=== PATIENT | male | born 1955 | race Two or more races ===

== ENCOUNTER 2020-04-04 04:06 | Inpatient (IN) | payer MEDICARE, SELFPAY ==
[2020-04-04] VITALS (9 sets, daily range): BP systolic 116–186; BP diastolic 58–96; PULSE 82–120; RESP 16–30; TEMP 36.5–37.1; O2SAT 92–98; BMI 18.1
--- NOTE | 2020-04-04 04:14 | ECG_ITS ---
Test Reason : DIF BREATHIG Blood Pressure : / mmHG Vent. Rate : 095 BPM Atrial Rate : 095 BPM P-R Int : 164 ms QRS Dur : 090 ms QT Int : 362 ms P-R-T Axes : 084 107 -36 degrees QTc Int : 454 ms Normal sinus rhythm Left atrial enlargement Rightward axis Pulmonary disease pattern T wave abnormality, consider lateral ischemia Abnormal ECG please see previous ekgs ST-T wave changes have are new Clinical Correlation Advised Referred By: Alexandra Jerome Electronically Signed By:AJ HAWTHORNE MD
--- NOTE | 2020-04-04 04:15 | XR_ITS ---
EXAMINATION: CHEST 1 VIEW CLINICAL INFORMATION: Shortness of breath. COMPARISON: 04/01/2016. TECHNIQUE: An AP view of the chest is provided. FINDINGS: The cardiac silhouette is not enlarged. The mediastinal and hilar contours are unremarkable. There are neither pleural effusions nor pneumothoraces. There is bibasilar atelectasis. There is mild interstitial prominence present throughout both lungs. The osseous structures are unremarkable. IMPRESSION: Mild nonspecific interstitial prominence throughout both lungs. Bibasilar atelectasis.
--- NOTE | 2020-04-04 04:27 | ED_ITS ---
HPI - SOB/Dyspnea General Chief Complaint: Dyspnea Stated Complaint: diff breathing Time Seen by Provider: 04/04/20 04:14 History of Present Illness HPI Narrative: This is a 65-year-old male who presents via EMS with complaints of worsening shortness of breath over the past 3 days and is not oxygen dependent and states that he has had subjective fevers with chills as well as a cough with increased phlegm production, chest pain, abdominal discomfort. He states he last used cocaine on Thursday. Related Data Allergies Allergy/AdvReac Type Severity Reaction Status Date / Time No Known Allergies Allergy Unverified 03/01/20 15:40 Review of Systems Review of Systems: Pertinent positives and negatives as stated in HPI 10 point review of systems is otherwise negative. [facility] Past Medical History Source: nursing notes reviewed Medical History Asthma Depression Hypertension Social History Social History Alcohol intake: current Alcohol intake frequency: a few times a week Alcohol type: beer Smoking Status: Current every day smoker Smoked in Last 30 Days: Yes Use of substances other than those prescribed or required for medical reasons: Yes Substance Use Type: Crack/Cocaine, Heroin and Marijuana Substance Use Frequency: Chronic Longstanding Last Used Substance: Days (ago) Any prior treatment program specific to substance use: No Advance Directives: No Advance Directives Information Provided: No Physical Exam Vital Signs: Vital Signs: Vital Signs Temp Pulse Resp BP Pulse Ox 04/04/20 08:14 92 04/04/20 07:14 98.8 F 100 20 136/76 96 04/04/20 05:23 30 H 04/04/20 04:12 97.7 F 106 H 30 H 164/91 H 93 Body Mass Index 18.1 VITAL SIGNS: Reviewed. GENERAL: Well developed, well nourished, in no acute distress. HEAD: Normocephalic/atraumatic, EYES: PERRLA, EOMI intact without pain, no nystagmus/pallor/icterus noted EARS: Ext canals without abnormality, TMs non-bulging and non-erythematous NOSE: Nares patent bilateral OROPHARYNX: no oral lesions noted, posterior pharynx clear and non-erythematous without noted tonsillar enlargement/erythema/exudates NECK: Supple, no adenopathy LUNGS: bilateral rhonchi and rales and there is increased work of breathing. SpO2<93%> On supplemental oxygen via nasal cannula CARDIOVASCULAR: Regular rate and rhythm without noted murmurs, no JVD or lower extremity edema. ABDOMEN: Soft, non-tender, non-distended with bowel sounds. No rigidity. No guarding. No palpable masses or hernias noted MUSCULOSKELETAL: No tenderness, deformities, or effusions noted on gross inspection. EXTREMITIES: No cyanosis, clubbing or edema. SKIN: Inspection of the skin reveals no rashes, ulcerations, jaundice, pallor, or petechiae. NEUROLOGIC: Alert and oriented x 4. Strength and sensation to light touch were grossly intact x 4. Course Course Course Narrative: This is a 65-year-old male with history and clinical presentation most consistent with likely exacerbation of underlying respiratory pathology and the possibility of pneumonia. labs, chest x-ray, blood cultures, lactic acid, EKG. Review of all investigations there is no evidence for systemic infection and anemia is chronically stable without acute findings on the chemistry labs. Initial high sensitivity troponin is noted to be 77.3 but taken in conjunction with positive cocaine this is felt to be the likely etiology, however will proceed with 2nd troponin and discuss the case with Cardiology. Dr Luciano recommends echo, 2nd Troponin and doesn't think heparin should be started at this time. I discussed this case with inpatient hospitalist team who agrees that antibiotics are not indicated at this time and has requested COVID-19 suppl ementary labs which will be added on at this time. MDM - SOB/Dyspnea Lab Data Result diagrams: 04/04/20 05:06 04/04/20 05:06 Labs: Lab Results 04/04/20 04/04/20 04/04/20 Range/Units 05:06 05:06 05:06 WBC 7.5 (4.8-10.8) X10*3/uL RBC 4.45 L (4.60-5.80) X10*6/uL Hgb 13.1 L (14.0-18.0) g/dl Hct 39.5 L (42-52) % MCV 88.8 (80-98) fL MCH 29.4 (27.0-33.0) pg MCHC 33.2 (31.0-36.0) g/dl RDW 14.6 (11.0-16.0) % Plt Count 244 (160-400) X10*3/uL MPV 10.3 (9.4-12.4) fL Immature Gran % (Auto) 0.1 (0.0-0.4) % Neut % (Auto) 58.8 (45-73) % Lymph % (Auto) 27.9 (20-40) % [place] % (Auto) 11.5 H (2-11) % Eos % (Auto) 1.2 (0-4) % Baso % (Auto) 0.5 (0-2) % Lymph # (Auto) 2.1 (1.2-4.9) X10*3/uL [place] # (Auto) 0.9 (0.1-1.2) X10*3/uL Eos # (Auto) 0.1 (0.0-0.4) X10*3/uL Baso # (Auto) 0.0 (0.0-0.2) X10*3/uL Abs Immat Gran (auto) 0.01 (0.00-0.03) X10*3/uL Absolute Neuts (auto) 4.4 (2.0-8.3) X10*3/uL Absolute Nucleated RBC 0.000 (0.0-0.012) X10*3/uL Nucleated RBC % (auto) 0.0 (0.0-0.2) /100WBC Sodium 139 (135-145) mmol/L Potassium 4.3 (3.3-5.1) mmol/l Chloride 104 (96-108) mmol/L Carbon Dioxide 27 (22-29) mmol/L Anion Gap 12 (12-20) BUN 15 (9-16) mg/dL Creatinine 1.31 (0.5-1.4) mg/dL Estim Creat Clear Calc 45.6 Estimated GFR 55 Random Glucose 101 (60-115) mg/dL Lactic Acid 0.7 (0.5-2.0) mmol/L Calcium 9.6 (8.4-10.2) mg/dL Total Bilirubin 0.5 (0.0-1.0) mg/dL AST 39 H (5-37) U/L ALT 35 (0-40) U/L Alkaline Phosphatase 83 (39-117) U/L Troponin I High Sens (<3.5-35.0) ng/L Total Protein 8.0 (6.5-8.0) g/dL Albumin 3.9 (3.5-5.0) g/dL Urine Color Urine Appearance Urine pH (5.0-8.0) Ur Specific [place] (1.005-1.025) Urine Protein (NEG-TRACE) MG/DL Urine Glucose (UA) (NEG) MG/DL Urine Ketones (NEG) MG/DL Urine Blood (NEG) Urine Nitrite (NEG) Ur Leukocyte Esterase (NEG) Urine Opiates Screen (Not Detect) Ur Barbiturates Screen (Not Detect) Ur Phencyclidine Scrn (Not Detect) Ur Amphetamines Screen (Not Detect) U Benzodiazepines Scrn (Not Detect) Urine Cocaine Screen (Not Detect) U Marijuana (THC) Screen (Not Detect) Ethyl Alcohol mg/dL 04/04/20 04/04/20 04/04/20 Range/Units 05:06 05:06 05:06 WBC (4.8-10.8) X10*3/uL RBC (4.60-5.80) X10*6/uL Hgb (14.0-18.0) g/dl Hct (42-52) % MCV (80-98) fL MCH (27.0-33.0) pg MCHC (31.0-36.0) g/dl RDW (11.0-16.0) % Plt Count (160-400) X10*3/uL MPV (9.4-12.4) fL Immature Gran % (Auto) (0.0-0.4) % Neut % (Auto) (45-73) % Lymph % (Auto) (20-40) % [place] % (Auto) (2-11) % Eos % (Auto) (0-4) % Baso % (Auto) (0-2) % Lymph # (Auto) (1.2-4.9) X10*3/uL [place] # (Auto) (0.1-1.2) X10*3/uL Eos # (Auto) (0.0-0.4) X10*3/uL Baso # (Auto) (0.0-0.2) X10*3/uL Abs Immat Gran (auto) (0.00-0.03) X10*3/uL Absolute Neuts (auto) (2.0-8.3) X10*3/uL Absolute Nucleated RBC (0.0-0.012) X10*3/uL Nucleated RBC % (auto) (0.0-0.2) /100WBC Sodium (135-145) mmol/L Potassium (3.3-5.1) mmol/l Chloride (96-108) mmol/L Carbon Dioxide (22-29) mmol/L Anion Gap (12-20) BUN (9-16) mg/dL Creatinine (0.5-1.4) mg/dL Estim Creat Clear Calc Estimated GFR Random Glucose (60-115) mg/dL Lactic Acid (0.5-2.0) mmol/L Calcium (8.4-10.2) mg/dL Total Bilirubin (0.0-1.0) mg/dL AST (5-37) U/L ALT (0-40) U/L Alkaline Phosphatase (39-117) U/L Troponin I High Sens (<3.5-35.0) ng/L Total Protein (6.5-8.0) g/dL Albumin (3.5-5.0) g/dL Urine Color YELLOW Urine Appearance CLEAR Urine pH 6.0 (5.0-8.0) Ur Specific [place] 1.020 (1.005-1.025) Urine Protein NEG (NEG-TRACE) MG/DL Urine Glucose (UA) NEG (NEG) MG/DL Urine Ketones NEG (NEG) MG/DL Urine Blood NEG (NEG) Urine Nitrite NEG (NEG) Ur Leukocyte Esterase NEG (NEG) Urine Opiates Screen Not Detected (Not Detect) Ur Barbiturates Screen Not Detected (Not Detect) Ur Phencyclidine Scrn Not Detected (Not Detect) Ur Amphetamines Screen Not Detected (Not Detect) U Benzodiazepines Scrn Not Detected (Not Detect) Urine Cocaine Screen POSITIVE H (Not Detect) U Marijuana (THC) Screen Not Detected (Not Detect) Ethyl Alcohol < 10 mg/dL 04/04/20 Range/Units 05:06 WBC (4.8-10.8) X10*3/uL RBC (4.60-5.80) X10*6/uL Hgb (14.0-18.0) g/dl Hct (42-52) % MCV (80-98) fL MCH (27.0-33.0) pg MCHC (31.0-36.0) g/dl RDW (11.0-16.0) % Plt Count (160-400) X10*3/uL MPV (9.4-12.4) fL Immature Gran % (Auto) (0.0-0.4) % Neut % (Auto) (45-73) % Lymph % (Auto) (20-40) % [place] % (Auto) (2-11) % Eos % (Auto) (0-4) % Baso % (Auto) (0-2) % Lymph # (Auto) (1.2-4.9) X10*3/uL [place] # (Auto) (0.1-1.2) X10*3/uL Eos # (Auto) (0.0-0.4) X10*3/uL Baso # (Auto) (0.0-0.2) X10*3/uL Abs Immat Gran (auto) (0.00-0.03) X10*3/uL Absolute Neuts (auto) (2.0-8.3) X10*3/uL Absolute Nucleated RBC (0.0-0.012) X10*3/uL Nucleated RBC % (auto) (0.0-0.2) /100WBC Sodium (135-145) mmol/L Potassium (3.3-5.1) mmol/l Chloride (96-108) mmol/L Carbon Dioxide (22-29) mmol/L Anion Gap (12-20) BUN (9-16) mg/dL Creatinine (0.5-1.4) mg/dL Estim Creat Clear Calc Estimated GFR Random Glucose (60-115) mg/dL Lactic Acid (0.5-2.0) mmol/L Calcium (8.4-10.2) mg/dL Total Bilirubin (0.0-1.0) mg/dL AST (5-37) U/L ALT (0-40) U/L Alkaline Phosphatase (39-117) U/L Troponin I High Sens 77.3 H (<3.5-35.0) ng/L Total Protein (6.5-8.0) g/dL Albumin (3.5-5.0) g/dL Urine Color Urine Appearance Urine pH (5.0-8.0) Ur Specific [place] (1.005-1.025) Urine Protein (NEG-TRACE) MG/DL Urine Glucose (UA) (NEG) MG/DL Urine Ketones (NEG) MG/DL Urine Blood (NEG) Urine Nitrite (NEG) Ur Leukocyte Esterase (NEG) Urine Opiates Screen (Not Detect) Ur Barbiturates Screen (Not Detect) Ur Phencyclidine Scrn (Not Detect) Ur Amphetamines Screen (Not Detect) U Benzodiazepines Scrn (Not Detect) Urine Cocaine Screen (Not Detect) U Marijuana (THC) Screen (Not Detect) Ethyl Alcohol mg/dL Discharge Plan Discharge Clinical Impression: Chest pain of uncertain etiology, Hypoxia, COPD exacerbation Patient Disposition: Admitted As Inpatient
[2020-04-04 05:13] LABS: MANUAL DIFF FLAG NO
[2020-04-04 05:14] LABS: Basophils Percent Auto 0.5 % (0-2); Eosinophils Absolute Auto 0.1 X10*3/uL (0.0-0.4); Eosinophils Percent Auto 1.2 % (0-4); Hematocrit 39.5 % (42-52); Hemoglobin 13.1 g/dl (14.0-18.0); Imm Gran Abs Auto 0.01 X10*3/uL (0.00-0.03); Imm Gran Pct Auto 0.1 % (0.0-0.4); Lymphocytes Absolute Auto 2.1 X10*3/uL (1.2-4.9); Lymphocytes Percent Auto 27.9 % (20-40); Mean Corpuscular HGB Conc 33.2 g/dl (31.0-36.0); Mean Corpuscular Hemoglobin 29.4 pg (27.0-33.0); Mean Corpuscular Volume 88.8 fL (80-98); Mean Platelet Volume 10.3 fL (9.4-12.4); Monocytes Absolute Auto 0.9 X10*3/uL (0.1-1.2); Monocytes Percent Auto 11.5 % (2-11); Neutrophils Absolute Auto 4.4 X10*3/uL (2.0-8.3); Neutrophils Percent Auto 58.8 % (45-73); Platelet Count 244 X10*3/uL (160-400); Red Blood Count 4.45 X10*6/uL (4.60-5.80); Red Cell Distribution Width 14.6 % (11.0-16.0); White Blood Count 7.5 X10*3/uL (4.8-10.8)
[2020-04-04 05:34] LABS: Glucose Urine UA NEG (NEG); Lactic Acid 0.7 mmol/L (0.5-2.0); Leukocyte Esterase Urine NEG (NEG); Nitrite Urine NEG (NEG); Urine Blood NEG (NEG); Urine Ketones NEG (NEG); Urine Protein NEG (NEG-TRACE)
[2020-04-04 05:36] LABS: Ethanol < 10 mg/dL
[2020-04-04 05:39] LABS: Alanine Aminotransferase 35 U/L (0-40); Albumin Level 3.9 g/dL (3.5-5.0); Alkaline Phosphatase 83 U/L (39-117); Anion Gap 12 (12-20); Aspartate Amino Transferase 39 U/L (5-37); Bilirubin Total 0.5 mg/dL (0.0-1.0); Blood Urea Nitrogen 15 mg/dL (9-16); Calcium 9.6 mg/dL (8.4-10.2); Carbon Dioxide 27 mmol/L (22-29); Chloride 104 mmol/L (96-108); Creatinine Clr Calc Pharmacy 45.6; Estimated Glomerular Filt Rate 55; Glucose Random 101 mg/dL (60-115); Potassium 4.3 mmol/l (3.3-5.1); Sodium 139 mmol/L (135-145)
[2020-04-04 05:41] LABS: Appearance Urine CLEAR; Color Urine YELLOW; UACC Culture Trigger NO
[2020-04-04] MEDS: methylPREDNISolone Sod Succ/PF 125 MG/2 ML VIAL IVPUSH (05:50)
[2020-04-04 06:17] LABS: Amphetamine Screen Urine Not Detected (Not Detect); Barbiturates, Urine Not Detected (Not Detect); Benzodiazepines Screen Urine Not Detected (Not Detect); Cannabinoid Screen Urine Not Detected (Not Detect); Cocaine Screen Urine POSITIVE (Not Detect); Opiate Screen Urine Not Detected (Not Detect); Phencyclidine Screen Urine Not Detected (Not Detect)
[2020-04-04 06:18] LABS: Troponin-I High Sensitivity 77.3 ng/L (<3.5-35.0)
--- NOTE | 2020-04-04 07:44 | PC.NURSE ---
PT TRIAL OFF SUPPORTIVE O2 PER MD
--- NOTE | 2020-04-04 08:09 | CA_ITS ---
Transthoracic Echocardiogram Patient (Last, First, Middle): Bart Downey M Gender: Male Date of : 1955 Age: 65 Procedure Date: 04/04/2020 Procedure Type: Transthoracic Echocardiogram Location: [facility] [place] Height: 177.8 cm Weight: 58.97 kg BSA: 1.74 m2 Heart Rate: bpm BP: 116 / 60 mmHg Bolt Maker: Referring MD: Alexandra Jerome MD Symptoms: CHEST PATRICK, ELEVATED TROPONIN Study Quality: Good ECG Rhythm: Sinus with extra beats Conclusions: - Normal right ventricular cavity size and systolic function. - There is normal left ventricular wall thickness. LV size is at upper limit of normal. The left ventricular systolic function is severely decreased. The visually estimated ejection fraction is between 15-20%. - No significant valvular or pericardial pathology. Findings Left Ventricle There is normal left ventricular wall thickness. LV size is at upper limit of normal. The left ventricular systolic function is severely decreased. The visually estimated ejection fraction is between 15-20%. There is severe global hypokinesis. Abnormal diastolic function is noted. Spectral Doppler is indicative of an impaired relaxation filling pattern. E/E prime ratio is between 8 and 15 consistent with indeterminate filling pressures. Right Ventricle Normal right ventricular cavity size and systolic function. Atria The left atrium is likely dilated. There is no evidence of interatrial shunt by color Doppler. Aortic Valve Normal aortic valve structure and function. There is no aortic valve stenosis. There is trace (trivial) aortic valve regurgitation. Mitral Valve The mitral valve appears normal. There is trace mitral valve regurgitation. There is no mitral valve stenosis. Pulmonic Valve Normal pulmonic valve structure and function. There is trace pulmonic valve regurgitation. Tricuspid Valve Normal tricuspid valve structure. There is trace tricuspid valve regurgitation. Tricuspid regurgitation envelope is inadequate for calculation of right ventricular systolic pressure. Normal right atrial pressure. Great Vessels All visible segments of the aorta are normal in size. The visualized portions of the pulmonary artery and branches are normal. Venous The inferior vena cava is normal in size and collapses greater than 50% with inspiration. Pericardium/Pleural There is no evidence of pericardial effusion. Measurements 2D Linear Measurements IVSd: 1.03 0.6-0.9/0.6-1.0 cm LVIDd: 5.30 3.9-5.3/4.2-5.9 cm LVIDd Index: 3.05 2.4-3.2/2.2-3.1 cm/m2 LVIDs: 4.22 2.0-3.6 cm LVPWd: 1.01 0.7-1.1 cm Ao Root: 3.60 2.1-3.5 cm LA Diam: 3.10 2.7-3.8/3.0-4.0 cm LAIDs Index: 1.78 1.5-2.3 cm/m2 LV Mass: 256.43 67-162/88-224 g LV Mass Index: 147.38 43-95/49-115 g/m2 LVOT Diam: 2.10 3.0+(-)1.3 cm 2D Systolic Function EF 4C: 22.50 >55% EF 2C: 42.00 >55% EF BiP: 33.80 >55% Mitral Valve MV Pk E: 0.60 MV PK A: 0.99 MV Decel Time: 141.00 E/A: 0.60 E'Lateral: 6.38 E'Medial: 5.22 E/E' Med: 11.50 E/E' Lat: 9.40 PHT: 41.00 MVA PHT: 5.37 Decel [place]: 4.27 Aortic Valve AoV Pk Vidal: 1.55 AoV Mn Vidal: 0.88 AoV VTI: 0.28 AoV Pk Grad: 10.00 Aov Mn Grad: 4.00 CHRISTEL Cont.VTI: 1.77 LVOT LVOT Pk Vidal: 0.79 LVOT Mn Vidal: 0.48 LVOT VTI: 0.14 LVOT Pk Grad: 3.00 LVOT Mn Grad: 1.00 LVOT Diam: 2.10 LVOT Area: 3.46 Diastolic Function MV Pk E: 0.60 MV Pk A: 0.99 E/A: 0.60 E'Medial: 5.22 E/E' Med: 11.50 E' Laterial: 6.38 E/E' Lat: 9.40 Tricuspid Valve TR Pk Vidal: 1.88 TR Pk Grad: 14.00 Great Vessels Aorta Ao Root-2D: 3.60 2.0-3.7 cm Pulmonary Valve PV Pk Vidal: 1.09 Peak PV Grad: 5.00 Updated in Other Vendor System with Status of Final Jeremías Luciano MD electronically signed on 04/04/2020 4:50:49 PM with status of Final
[2020-04-04 08:42] LABS: Troponin-I High Sensitivity 86.5 ng/L (<3.5-35.0)
[2020-04-04] MEDS: Albuterol Sulfate (0.083%) 2.5 MG/3 ML VIAL.NEB 10 MG INHALE (08:53)
[2020-04-04 08:56] LABS: SARS COV2 PCR INHOUSE NEGATIVE (Negative)
[2020-04-04 09:18] LABS: C Reactive Protein 0.81 mg/dL (< or = 0.50); Lactate Dehydrogenase 220 U/L (118-273)
--- NOTE | 2020-04-04 09:37 | PC.NURSE ---
hospitalist at the bedside for admission pt is on a continuous updraft treatment
[2020-04-04 09:40] LABS: Ferritin 100 ng/mL (20-250)
--- NOTE | 2020-04-04 09:43 | PM.IMHP ---
History of Present Illness Date of Service: 04/04/20 Chief Complaint: progressive shortness of breath Patient is seen and examined in the ED. History is taken with the help of servicenow administrator. This is a 65-year-old male who reports no chronic medical problems presents to the hospital with 2-3 days of progressive shortness of breath with associated intermittently productive cough of white/ yellow sputum. he denies any fevers or chills at home and denies any sick contacts or any close contact with a COVID-19 patient. He reports that he continued to smoke tobacco and crack/cocaine and once his symptoms became unbearable he presented to the emergency room. He does not explicitly endorse any chest pain but when asked during review of systems he does endorse sub sternal chest pain which is sharp in nature but does not radiate. He reports that this pain is on and off but does not have any currently. He denies any previous cardiac history. Despite using a servicenow administrator, the patient is not the best of historians unfortunately. He repeatedly asks why he needs to be admitted to the hospital. After multiple times a convincing time stay, he is agreeable. In the emergency room, he underwent basic workup which showed a slightly elevated high sensitivity troponin I at 77 with a delta less than 50%, repeat showing 86. his EKG did have some T-wave inversions in the lateral leads. He was noted to be significantly wheezing and in respiratory distress so was given updrafts and steroids. He was tested for COVID-19 with rapid swab which is negative. His chest x-ray showed some nonspecific interstitial findings. ED provider reported discussing the case with Cardiology who reportedly advised Echo and no OAC at this time. Review of Systems Review of Systems: General / Constitutional - no fevers or chills, malaise HEENT - no rhinorrhea, no sore throat Cardiovascular - +chest pain without radiation Respiratory - +SOB, +Cough with sputum Abdominal- no abdominal pain, nausea, vomiting, diarrhea - no dysuria MSK - no back pain PMFSH Medical History (Updated 04/04/20 @ 15:58 by Grady Dykes MD) Patient denies significant medical history Pertinent family history: He reports multiple medical issues with his brother, but hes unaware what they are. He reports cardiac issues in his son. Surgical History (Updated 04/04/20 @ 09:54 by Grady Dykes MD) No pertinent past surgical history Social History (Updated 04/04/20 @ 09:56 by Grady Dykes MD) Household Members: Spouse Housing: House Alcohol intake: current Alcohol intake frequency: 3 or more drinks per day Alcohol type: beer and hard liquor Smoking Status: Current every day smoker Tobacco Type: Cigarette Packs Per Day: 2 Cigarettes Per Day: 40.0 Smoked in Last 30 Days: Yes Patient Interested in Nicotine Replacement: No Use of substances other than those prescribed or required for medical reasons: Yes Substance Use Type: Crack/Cocaine and Heroin Substance Use Frequency: Chronic Longstanding Last Used Substance: Days (ago) Currently Displaying Signs/Symptoms of Drug Intoxication Withdrawal: No Any prior treatment program specific to substance use: No Have you been hit, kicked, punched, or otherwise hurt by someone within the past year? If so, by whom?: No Do you feel safe in your current relationship?: Yes Is there a partner from a previous relationship who is making you feel unsafe now?: No Are you made to feel afraid or neglected: No Advance Directives: No Advance Directives Information Provided: No Recently lost weight without trying: No Meds Allergies Allergy/AdvReac Type Severity Reaction Status Date / Time No Known Allergies Allergy Verified 04/04/20 14:49 Home Medications Medication Instructions Recorded Confirmed Type No Known Home Meds 04/04/20 04/04/20 History Physical Exam Vital Signs and Narrative: Vital Signs: Last Vital Signs Temp 98.8 F 04/04/20 07:14 Pulse 98 04/04/20 09:41 Resp 28 H 04/04/20 09:41 BP 142/85 H 04/04/20 09:41 Pulse Ox 92 04/04/20 08:14 Body Mass Index 18.1 General - anxious, mild respiratory distress HEENT - EOMI Cardiovascular - Regular rhythm, slightly tach around 100 Lungs - mild distress but able to speak in full sentences, no wheezing, no rales or ronchi, dim sounds but equal bilaterally Abdomen - soft, non-tender, no rebound Extremities - no edema bilaterally Neuro - awake and alert, no focal deficits Skin - warm / dry Psych - appears anxious Assessment and Plan (1) COPD exacerbation: Status: Acute (2) Acute electrocardiogram changes: Status: Acute (3) Elevated troponin I level: Status: Acute This is a 65-year-old male who denies any significant past medical history but does endorse polysubstance abuse with last cocaine and heroin use roughly 24 hours prior to arrival. He presents to the hospital complaints of progressive shortness of breath for the last 2-3 days with associated intermittently productive cough but denies any fevers, chills, sick contacts particularly antibody with COVID-19. He is admitted for further work up 1. Elevated HS trop-I / Inverted t-waves possibly 2/2 to cocaine use repeat HS flat, chest pain resolved will trend a 3rd trop I, check 2d echo Cardiology consulted 2. ? COPD exacerbation was in distress and reportedly hypoxic in the ED, no documentation of the hypoxia noted will give solumedrol and updrafts COVID 19 negative by swab upon admission will cover with doxycycline 3. Polysubstance abuse cessation as been strongly advised 4. Elevated BNP IV lasix follow echo Full Code DVT pptx, Lovenox
[2020-04-04 09:44] LABS: D Dimer 577 NG/ML
[2020-04-04] MEDS: Aspirin 81 MG TAB.CHEW 324 MG PO (10:02)
[2020-04-04 10:12] LABS: B Type Natriuretic Peptide 1687 pg/mL (<100)
--- NOTE | 2020-04-04 10:54 | PC.NURSE ---
CALLED TO GIVE REPORT FOR ADMISSION AWAITING RETURN CALL
--- NOTE | 2020-04-04 10:56 | PC.NURSE ---
CALLED FOR ADMISSION AWAITING RETURN CALL
[2020-04-04] MEDS: Enoxaparin Sodium 40 MG/0.4 ML SYRINGE SUBCUT (13:20)
[2020-04-04] MEDS: Albuterol/Iprat 2.5/0.5MG 3 ML AMPUL.NEB INHALE ×2 (13:36→16:29)
[2020-04-04] MEDS: 0.9 % Sodium Chloride Flush 3 ML SYRINGE IVFLUSH (15:41)
[2020-04-04] MEDS: Furosemide 20 MG/2 ML VIAL IVPUSH (16:45)
[2020-04-04 17:20] LABS: Troponin-I High Sensitivity 34.6 ng/L (<3.5-35.0)
[2020-04-05] MEDS: 0.9 % Sodium Chloride Flush 3 ML SYRINGE IVFLUSH ×2 (01:15→09:06)
[2020-04-05 03:39] VITALS: BP 155/79; PULSE 103; RESP 23; TEMP 36.7; O2SAT 99
[2020-04-05 06:21] LABS: MANUAL DIFF FLAG NO
[2020-04-05 06:38] LABS: Basophils Percent Auto 0.2 % (0-2); Eosinophils Percent Auto 0.5 % (0-4); Hematocrit 37.2 % (42-52); Hemoglobin 12.1 g/dl (14.0-18.0); Imm Gran Abs Auto 0.03 X10*3/uL (0.00-0.03); Imm Gran Pct Auto 0.3 % (0.0-0.4); Lymphocytes Absolute Auto 2.8 X10*3/uL (1.2-4.9); Lymphocytes Percent Auto 32.4 % (20-40); Mean Corpuscular HGB Conc 32.5 g/dl (31.0-36.0); Mean Corpuscular Hemoglobin 28.9 pg (27.0-33.0); Mean Platelet Volume 11.4 fL (9.4-12.4); Monocytes Absolute Auto 1.2 X10*3/uL (0.1-1.2); Monocytes Percent Auto 13.9 % (2-11); Neutrophils Absolute Auto 4.5 X10*3/uL (2.0-8.3); Neutrophils Percent Auto 52.7 % (45-73); Platelet Count 227 X10*3/uL (160-400); Red Blood Count 4.18 X10*6/uL (4.60-5.80); Red Cell Distribution Width 14.7 % (11.0-16.0); White Blood Count 8.6 X10*3/uL (4.8-10.8)
[2020-04-05 07:15] LABS: Anion Gap 14 (12-20); Blood Urea Nitrogen 29 mg/dL (9-16); Calcium 8.7 mg/dL (8.4-10.2); Carbon Dioxide 24 mmol/L (22-29); Chloride 104 mmol/L (96-108); Creatinine Clr Calc Pharmacy 45.2; Estimated Glomerular Filt Rate 54; Glucose Random 97 mg/dL (60-115); Potassium 4.8 mmol/l (3.3-5.1); Sodium 137 mmol/L (135-145)
[2020-04-05 08:23] VITALS: BP 164/74; PULSE 100; RESP 20; TEMP 36.3; O2SAT 100
--- NOTE | 2020-04-05 09:39 | P.CONCA_ITS ---
History of Present Illness History of Present Illness Date of Consult: April 05, 2020 Requesting physician: Grady Dykes Consult reason: chest pain and shortness of breath Chief complaint: shortness of breath Narrative: 65-year-old gentleman here for dyspnea. He has background history of cocaine and heroin abuse. He has been injecting himself for long time. He also has been a lifelong smoker from age 15. approximately 2 weeks ago he started experiencing shortness of breath. He said he was coughing yellow colored phlegm and progressively became more and more short of breath. He also had pleuritic chest pain. No pressure-like feeling in the chest. With these Symptoms he presented to ER. His EKG showed low voltage with lateral T-wave inversions. Chest x-ray showed mild congestion is weeks testing was negative. He was treated as COPD and also received some diuretics last evening. Today he is feeling much better. He had an echocardiogram which is showing severely reduced ejection fraction of 15-20%. He is clinically not in heart failure right now. Review of Systems Review of Systems: No chest pain or shortness of breath Yes all other systems are reviewed and are negative PMFSH Past Medical History Medical History (Updated 04/05/20 @ 09:45 by Jeremías Luciano MD) Patient denies significant medical history Surgical History Surgical History (Updated 04/04/20 @ 09:54 by Grady Dykes MD) No pertinent past surgical history Social History Social History (Updated 04/04/20 @ 09:56 by Grady Dykes MD) Household Members: Spouse Housing: House Alcohol intake: current Alcohol intake frequency: 3 or more drinks per day Alcohol type: beer and hard liquor Smoking Status: Current every day smoker Tobacco Type: Cigarette Packs Per Day: 2 Cigarettes Per Day: 40.0 Smoked in Last 30 Days: Yes Patient Interested in Nicotine Replacement: No Use of substances other than those prescribed or required for medical reasons: Yes Substance Use Type: Crack/Cocaine and Heroin Substance Use Frequency: Chronic Longstanding Last Used Substance: Days (ago) Currently Displaying Signs/Symptoms of Drug Intoxication Withdrawal: No Any prior treatment program specific to substance use: No Have you been hit, kicked, punched, or otherwise hurt by someone within the past year? If so, by whom?: No Do you feel safe in your current relationship?: Yes Is there a partner from a previous relationship who is making you feel unsafe now?: No Are you made to feel afraid or neglected: No Advance Directives: No Advance Directives Information Provided: No Recently lost weight without trying: No Meds Allergies Allergy/AdvReac Type Severity Reaction Status Date / Time No Known Allergies Allergy Verified 04/04/20 14:49 Home Medications Medication Instructions Recorded Confirmed Type No Known Home Meds 04/04/20 04/04/20 History Physical Exam Vital Signs: Vital Signs: Vital Signs Temp Pulse Resp BP Pulse Ox 04/05/20 08:23 97.3 F 100 20 164/74 H 100 04/05/20 03:39 98.1 F 103 H 23 H 155/79 H 99 04/04/20 23:38 98.6 F 88 20 116/69 96 04/04/20 18:49 98.2 F 82 16 123/58 L 95 04/04/20 15:20 98.8 F 87 18 120/76 96 04/04/20 11:54 97.9 F 92 19 126/59 L 93 04/04/20 09:41 98 28 H 142/85 H Body Mass Index 18.1 GENERAL APPEARANCE: in no acute distress, well developed, well nourished. HEENT: unremarkable. HEAD: normocephalic, atraumatic. NECK/THYROID: no carotid bruit, no jugular venous distention. SKIN: no suspicious lesions, warm and dry. HEART: no murmurs, regular rate and rhythm, S1, S2 normal. LUNGS: clear to auscultation bilaterally. ABDOMEN: normal, bowel sounds present, soft, nontender, nondistended. EXTREMITIES: no clubbing, cyanosis, or edema. both arms have track anderson. PERIPHERAL PULSES: equal. NEUROLOGIC: nonfocal, alert and oriented. PSYCH: mood/affect full range. Results Labs and Meds Result diagrams: 04/05/20 05:28 04/05/20 05:28 Lab results: Laboratory Results - last 24 hr 04/04/20 04/04/20 04/04/20 05:06 05:06 07:46 WBC RBC Hgb Hct MCV MCH MCHC RDW Plt Count MPV Immature Gran % (Auto) Neut % (Auto) Lymph % (Auto) [place] % (Auto) Eos % (Auto) Baso % (Auto) Lymph # (Auto) [place] # (Auto) Eos # (Auto) Baso # (Auto) Abs Immat Gran (auto) Absolute Neuts (auto) Absolute Nucleated RBC Nucleated RBC % (auto) D-Dimer Sodium Potassium Chloride Carbon Dioxide Anion Gap BUN Creatinine Estim Creat Clear Calc Estimated GFR Random Glucose Calcium Ferritin 100 Troponin I High Sens B-Natriuretic Peptide 1687 H Procalcitonin 0.10 04/04/20 04/04/20 04/05/20 09:05 16:10 05:28 WBC 8.6 RBC 4.18 L Hgb 12.1 L Hct 37.2 L MCV 89.0 MCH 28.9 MCHC 32.5 RDW 14.7 Plt Count 227 MPV 11.4 Immature Gran % (Auto) 0.3 Neut % (Auto) 52.7 Lymph % (Auto) 32.4 [place] % (Auto) 13.9 H Eos % (Auto) 0.5 Baso % (Auto) 0.2 Lymph # (Auto) 2.8 [place] # (Auto) 1.2 Eos # (Auto) 0.0 Baso # (Auto) 0.0 Abs Immat Gran (auto) 0.03 Absolute Neuts (auto) 4.5 Absolute Nucleated RBC 0.000 Nucleated RBC % (auto) 0.0 D-Dimer 577 Sodium Potassium Chloride Carbon Dioxide Anion Gap BUN Creatinine Estim Creat Clear Calc Estimated GFR Random Glucose Calcium Ferritin Troponin I High Sens 34.6 D B-Natriuretic Peptide Procalcitonin 04/05/20 05:28 WBC RBC Hgb Hct MCV MCH MCHC RDW Plt Count MPV Immature Gran % (Auto) Neut % (Auto) Lymph % (Auto) [place] % (Auto) Eos % (Auto) Baso % (Auto) Lymph # (Auto) [place] # (Auto) Eos # (Auto) Baso # (Auto) Abs Immat Gran (auto) Absolute Neuts (auto) Absolute Nucleated RBC Nucleated RBC % (auto) D-Dimer Sodium 137 Potassium 4.8 Chloride 104 Carbon Dioxide 24 Anion Gap 14 BUN 29 H D Creatinine 1.32 Estim Creat Clear Calc 45.2 Estimated GFR 54 Random Glucose 97 Calcium 8.7 Ferritin Troponin I High Sens B-Natriuretic Peptide Procalcitonin Cardiology Testing Echo: report reviewed (Normal right ventricular cavity size and systolic function. - There is normal left ventricular wall thickness. LV size is at upper limit of normal. The left ventricular systolic function is severely decreased. The visually estimated ejection fraction is between 15-20%. ) EKG Interpretation EKG Comments: EKG showing sinus rhythm, biatrial enlargement, lateral T-wave inversions with differentials of ischemia versus left ventricular hypertrophy. Low voltage in the limb leads. Assessment and Plan (1) COPD exacerbation: Status: Acute (2) Cardiomyopathy: Status: Acute (3) Hypoxia: Status: Acute 65-year-old gentleman with longstanding history of tobacco abuse and IV heroin and cocaine abuse who is presenting with dyspnea. Chest x-ray showed nonspecific bilateral interstitial changes with atelectasis at bases. He was coughing and had yellowish sputum production for the last couple of weeks along with dyspnea. He has been a lifelong smoker as documented above. I think his main presentation was from COPD exacerbation. He is improving with doxycycline and inhalers. He has been found to have severe cardiomyopathy with EF of 15- 20%. This is in the setting of longstanding use of cocaine. He is not endorsing any anginal symptoms at this point. I think we start with the medical management and start him on low-dose of LIZ-inhibitor and if it is tolerated to start low-dose of beta-olinda carvedilol 3.125 mg twice a day. I do not think is significantly volume overloaded and I do not think he needs IV diuretics at this point. I would just put him on 20 mg p.o. Lasix. In terms of his further assessment including ischemic evaluation, this depends on whether he will get clean and stop using drugs because otherwise his prognosis will be poor regardless of whatever measures we take. Right now I think we start medications and work on rehab for drugs. Thank you for allowing me to participate in the care of your patient. Please feel free to contact me if you have any questions.
--- NOTE | 2020-04-05 09:58 | MHC.CM.PN ---
CM met with patient with a interpreter for the deaf who reports he is independent and lives alone. Patient does not have a HCP and declines filling one out today. Discussed discharge plan, home no services. Family will provide transportation. CM will continue to follow patient for discharge needs.
--- NOTE | 2020-04-05 10:09 | P.CDIC_ITS ---
CDI Concurrent Query Service Date: 04/05/20 Documentation Clarification: Please clarify if you are treating a proba ble/suspected/likely or confirmed: Acute Hypoxic Respiratory Failure No Acute Hypoxic Respiratory Failure As my admission H&P, NO DOCUMENTATION OF HYPOXIA Provider Response: Other Other Diagnosis: no documentation of hypoxia PLEASE DO NOT DELETE/MODIFY EXISTING CONTENT Additional information is needed in order to code to the highest accuracy and appropriate Severity of Illness (SOI). Please clarify the information noted below in your progress notes and discharge summary. Risk Factors/Clinical Indicators/Treatments 65 year old male admitted with Dyspnea, fever, chills, cough PMH: Asthma, HTN Respiratory rate 20 - 30 CXR: nonspecific interstitial findings Received SoluMedrol and updrafts Per ED note: lungs bilateral rhonchi, rales and there is increased work of breathing Oxygen via nasal cannula received Per Cardiology consult: Acute Hypoxia CDS: Radha Briseno RN Contact Number: [phone] Please Review the information above and exercise your independent professional judgment in responding to the query. If you concur, pleas document in the PROGRESS NOTES and DISCHARGE SUMMARY. If you do not agree with the query, please document in the query above. THIS QUERY IS PART OF THE PERMANENT MEDICAL RECORD
[2020-04-05] MEDS: Furosemide 20 MG TABLET PO (10:30)
[2020-04-05] MEDS: carvediloL 3.125 MG TABLET PO (10:31)
[2020-04-05] MEDS: lisinopriL 10 MG TABLET PO (10:31)
[2020-04-05 11:56] VITALS: BMI 18.1
--- NOTE | 2020-04-05 11:58 | MHC.CLN ---
PT IS MILDLY MALNOURISHED WILL START ENSURE TO INCREASE KCALS SEE ALSO NUTRITION ASSESSMENT
[2020-04-05 12:15] VITALS: BP 130/73; PULSE 82; RESP 18; TEMP 36.5; O2SAT 97
--- NOTE | 2020-04-05 14:06 | PM.DS ---
DS: Providers Provider Date of admission: 04/04/20 09:42 Primary care physician: Unknown Physician Consults: 04/04/20 12:58 Consult to Cardiology Routine Consulting Provider: Jeremías Luciano Reason for consultation: elevated trop-I, ekg changes, cocaine use DS: Diagnosis Discharge Diagnosis (1) COPD exacerbation: Status: Acute (2) Cardiomyopathy: Status: Acute (3) Acute electrocardiogram changes: Status: Acute (4) Elevated troponin I level: Status: Acute DS: Summary Hospital Course Hospital Course: HPI This is a 65-year-old male who reports no chronic medical problems presents to the hospital with 2-3 days of progressive shortness of breath with associated intermittently productive cough of white/ yellow sputum. he denies any fevers or chills at home and denies any sick contacts or any close contact with a COVID-19 patient. He reports that he continued to smoke tobacco and crack/cocaine and once his symptoms became unbearable he presented to the emergency room. He does not explicitly endorse any chest pain but when asked during review of systems he does endorse sub sternal chest pain which is sharp in nature but does not radiate. He reports that this pain is on and off but does not have any currently. He denies any previous cardiac history. Despite using a park interpreter, the patient is not the best of historians unfortunately. He repeatedly asks why he needs to be admitted to the hospital. After multiple times a convincing time stay, he is agreeable. In the emergency room, he underwent basic workup which showed a slightly elevated high sensitivity troponin I at 77 with a delta less than 50%, repeat showing 86. his EKG did have some T-wave inversions in the lateral leads. He was noted to be significantly wheezing and in respiratory distress so was given updrafts and steroids. He was tested for COVID-19 with rapid swab which is negative. His chest x-ray showed some nonspecific interstitial findings. ED provider reported discussing the case with Cardiology who reportedly advised Echo and no OAC at this time. Hospital Course Patient was initially treated for was felt to be COPD exacerbation in the emergency room. However, chest x-ray and BNP level were more consistent with heart failure. He underwent 2D echo which confirmed cardiomyopathy, with reduced ejection fraction 15-20%. He was given IV diuresis with significant improvement in his symptoms. His troponin I which was mildly elevated was down trending and normalized and chest pain resolved. He was seen in consultation by Cardiology who recommended medical treatment with Brody inhibitors, beta-blockers and diuretics. He will be discharged home on low-dose lisinopril, Coreg, Lasix 20 mg and baby aspirin. He needs to follow up with his primary care doctor as cardiology. In regards to his polysubstance abuse, both he and his daughter who is his healthcare proxy were educated on the need for complete cessation. Patient did express understading of this. Time Spent with Patient Time attestation: Total time spent providing and/or coordinating discharge services: Physical Exam Vital Signs: Vital Signs: Vital Signs Temp Pulse Resp BP Pulse Ox 04/05/20 12:15 97.7 F 82 18 130/73 97 04/05/20 08:23 97.3 F 100 20 164/74 H 100 04/05/20 03:39 98.1 F 103 H 23 H 155/79 H 99 04/04/20 23:38 98.6 F 88 20 116/69 96 04/04/20 18:49 98.2 F 82 16 123/58 L 95 04/04/20 15:20 98.8 F 87 18 120/76 96 Body Mass Index 18.1 General - no acute distress, appears comfortable Cardiovascular - regular rate and rhythm, S1-S2 Lungs - normal respiratory effort, clear to auscultation bilaterally, no wheezing Abdomen - soft, nontender, no rebound regarding Extremities - no edema bilaterally Neuro - awake and alert, no focal deficits DS: Data Data Completed and Pending Labs on day of discharge: Labs from last 24 hours 04/05/20 04/05/20 04/04/20 05:28 05:28 16:10 WBC 8.6 RBC 4.18 L Hgb 12.1 L Hct 37.2 L MCV 89.0 MCH 28.9 MCHC 32.5 RDW 14.7 Plt Count 227 MPV 11.4 Immature Gran % (Auto) 0.3 Neut % (Auto) 52.7 Lymph % (Auto) 32.4 [place] % (Auto) 13.9 H Eos % (Auto) 0.5 Baso % (Auto) 0.2 Lymph # (Auto) 2.8 [place] # (Auto) 1.2 Eos # (Auto) 0.0 Baso # (Auto) 0.0 Abs Immat Gran (auto) 0.03 Absolute Neuts (auto) 4.5 Absolute Nucleated RBC 0.000 Nucleated RBC % (auto) 0.0 Sodium 137 Potassium 4.8 Chloride 104 Carbon Dioxide 24 Anion Gap 14 BUN 29 H D Creatinine 1.32 Estim Creat Clear Calc 45.2 Estimated GFR 54 Random Glucose 97 Calcium 8.7 Troponin I High Sens 34.6 D Preliminary micro results at discharge 04/04/20 05:06 Blood Culture - Preliminary Blood - Venous No growth after 24 hours. 04/04/20 05:06 Blood Culture - Preliminary Blood - Venous No growth after 24 hours. Imaging Chest x-ray: Radiologist's impression: IMPRESSION: Mild nonspecific interstitial prominence throughout both lungs. Bibasilar atelectasis. Discharge Plan Discharge Patient Disposition: Home, Self-Care Referrals: Jeremías Luciano MD [Physician] - Physician,Unknown [Primary Care Provider] - Discharge Medications: New carvedilol 3.125 mg Tablet 3.125 mg PO BID Qty: 60 RF: 0 lisinopril 10 mg Tablet 10 mg PO DAILY Qty: 30 RF: 0 furosemide 20 mg Tablet 20 mg PO DAILY Qty: 30 RF: 0 doxycycline hyclate 100 mg Tablet 100 mg PO BID Qty: 12 RF: 0 aspirin [Ecotrin Low Strength] 81 mg tablet,delayed release (DR/EC) 81 mg PO DAILY Qty: 30 RF: 0 Discharge Orders: Discharge Order (Routine); Ordered 04/05/20 Ordered By: Grady Dykes Diet: low salt diet Activity on Discharge: As tolerated Visit Report Forms: Patient Portal Discharge page Care Plan Goals: To stay out of the hospital. To stay sober and clean from drugs To keep up with doctors appointments Health Concerns: Cardiomyopathy Substance abuse Plan of Treatment: Stop doing cocaine, heroin. Stop alcohol. Stop tobacco. Start taking lisinopril, coreg, lasix. Finish doxycycline. Follow up with cardiology and your primary care doctors.
--- NOTE | 2020-04-05 14:06 | MHC.CM.PN ---
Patient will be discharged home today no services. Family will provide transportation.
== END 2020-04-05 14:54 | disposition home or self-care (01) | DRG 191 ==
LOC: HO.ED 08:24 → HO.IMC 10:33
PROVIDERS: Admitting Provider Family Medicine; Emergency Provider Student in an Organized Health Care Education/Training Program; Visit Provider Family Medicine
DX: J44.1 Chronic obstructive pulmonary disease with (acute) exacerbation (principal); I42.9 Cardiomyopathy, unspecified; Z20.828 Contact with and (suspected) exposure to other viral communicable diseases; F19.10 Other psychoactive substance abuse, uncomplicated; I50.9 Heart failure, unspecified; F17.210 Nicotine dependence, cigarettes, uncomplicated; Z71.6 Tobacco abuse counseling
CPT/HCPCS: 36415; 71045; 80048; 80053; 80307; 80320; 81003; 82728; 83605; 83615; 83880; 84145; 84484; 85025; 85379; 86140; 87040; 87635; 93005; 93306; 96374; 99285; J1650; J1940; J2930

== ENCOUNTER 2020-04-13 18:06 | Emergency (ER) | payer MEDICARE, SELFPAY ==
--- NOTE | 2020-04-13 | ECG_ITS ---
Test Reason : OD Blood Pressure : / mmHG Vent. Rate : 072 BPM Atrial Rate : 072 BPM P-R Int : 180 ms QRS Dur : 090 ms QT Int : 380 ms P-R-T Axes : 074 158 115 degrees QTc Int : 416 ms Normal sinus rhythm Low voltage QRS Biatrial enlargement Right axis deviation Pulmonary disease pattern T wave abnormality, consider lateral ischemia Abnormal ECG When compared with ECG of 04-APR-2020 04:24, Heart rate has decreased T wave inversion less evident in Inferior leads Referred By: Nacho Mays Electronically Signed By:AJ HAWTHORNE MD
[2020-04-13 18:36] VITALS: BP 127/68; BP 154/78; PULSE 102; PULSE 66; RESP 16; TEMP 35.9; O2SAT 100; O2SAT 96; BMI 16.0
--- NOTE | 2020-04-13 18:40 | PC.NURSE ---
PT TRIAGED AFTER BEING NARCAN'D 6MG, BAGGED ON SCENE. FAMIYL THREW HIM IN THE SHOWER, SLIGHTLY HYPOTHERMIC AT THIS TIME. SEVERAL WARM BLANKETS PLACED ON HIM. VS WNL. PT IS SOMNOLENT, BUT RESPONDS EASILY TO VERBAL STIMULI.RECENT HX CARDIOMYOPATHY.
--- NOTE | 2020-04-13 19:09 | ECG_ITS ---
Test Reason : OD Blood Pressure : / mmHG Vent. Rate : 070 BPM Atrial Rate : 070 BPM P-R Int : 184 ms QRS Dur : 096 ms QT Int : 388 ms P-R-T Axes : 077 190 106 degrees QTc Int : 419 ms Normal sinus rhythm Low voltage QRS Biatrial enlargement Right superior axis deviation Pulmonary disease pattern ST & T wave abnormality, consider anterolateral ischemia Abnormal ECG When compared with ECG of 13-APR-2020 19:54, No significant change was found Referred By: Nacho Mays Electronically Signed By:AJ HAWTHORNE MD
--- NOTE | 2020-04-13 19:09 | ED.OVERDOSE ---
HPI - Overdose General Chief Complaint: Overdose Stated Complaint: overdose Time Seen by Provider: 04/13/20 18:36 Source: EMS Mode of arrival: ambulatory Limitations: no limitations History of Present Illness HPI Narrative: Arrived via EMS after reportedly overdosing on heroin. Admits to using heroin he was found by family to be appearing under the influence and subsequently called EMS who found him with decreased respiratory drive with respiratory rate of 8 subsequently administered 1 round of nasal Narcan with improvement and in mitts to using heroin. He offers no medical complaints on arrival. States he used the heroin to get high denies any SI or HI. Denies any EtOH use. Denies any falls. MD complaint: accidental overdose Onset (ago): minute(s) Timing confirmed by: family member Intent: other ( Recreational use) How Overdose Was Discovered: called family/friend Treatments Prior to Arrival: narcan Related Data Previous Rx's Medication Instructions Recorded aspirin [Ecotrin Low Strength] 81 mg PO DAILY #30 tab 04/05/20 carvedilol 3.125 mg PO BID #60 tab 04/05/20 doxycycline hyclate 100 mg PO BID #12 tab 04/05/20 furosemide 20 mg PO DAILY #30 tab 04/05/20 lisinopril 10 mg PO DAILY #30 tab 04/05/20 Allergies Allergy/AdvReac Type Severity Reaction Status Date / Time No Known Allergies Allergy Verified 04/13/20 18:39 Review of Systems Review of Systems: Constitutional: No Weight loss, No Fever, No Chills, No Night Sweats, No Fatigue, No Malaise ENT/Mouth: No Hearing loss, No Ear Pain, No Nasal Congestion, No Sinus Pain, No Hoarseness, No sore throat, No Rhinorrhea, No Swallowing Difficulty Eyes: No Eye Pain, No Swelling, No Redness, No Foreign Body, No Discharge, No Vision Changes Cardiovascular: No Chest Pain, No SOB, No Dyspnea on Exertion, No Orthopnea, No Edema, No Palpitations Respiratory: No Cough, No Sputum, No Wheezing, No Smoke Exposure, No Dyspnea Gastrointestinal: No Nausea, No Vomiting, No Diarrhea, No Constipation, No abdominal Pain, No Hematochezia, No Melena Genitourinary: no irregular bleeding, No Dysuria, No Urinary Frequency, No Hematuria, No Urinary Incontinence, No Urgency, No Flank Pain, No Urinary Flow Changes, No Hesitancy Musculoskeletal: No joint pain, No Myalgias, No Joint Swelling Skin: No Skin Lesions, No rash--- extensive track anderson to the bilateral upper extremities without any signs of acute infection, erythema, induration. Neuro: No Weakness, No Numbness, No Paresthesias, No Loss of Consciousness, No Dizziness, No Headache Psych: No Anxiety/Panic, No Depression, No SI/HI/AH/VH, No Social Issues Heme/Lymph: No Bruising, No Bleeding,No Lymphadenopathy Endocrine: No Polyuria, No Polydipsia, No Temperature Intolerance Yes all other systems are reviewed and are negative [facility] Past Medical History Attestation statement: The following information was validated with the patient. Medical History Acute electrocardiogram changes Patient denies significant medical history Surgical History No pertinent past surgical history Social History Social History (Updated 04/04/20 @ 09:56 by Grady Dykes MD) Household Members: Spouse Housing: House Alcohol intake: current Alcohol intake frequency: 3 or more drinks per day Alcohol type: beer and hard liquor Smoking Status: Current every day smoker Tobacco Type: Cigarette Packs Per Day: 2 Cigarettes Per Day: 40.0 Substance Use Type: Crack/Cocaine and Heroin Advance Directives: No Advance Directives Information Provided: Yes service: No Current occupational status: unemployed Physical Exam Vital Signs: Vital Signs: Vital Signs Temp Pulse Resp BP Pulse Ox 04/13/20 19:32 97.8 F 73 17 124/66 100 04/13/20 18:36 96.7 F L 66 16 127/68 100 Body Mass Index 16.0 Reviewed Const: General: cooperative and healthy appearing; No acute distress or intoxicated appearing Nutritional Appearance: average body habitus Orientation/consciousness: patient oriented x3 HENMT: Head: Yes normal to inspection Ears: hearing grossly normal bilaterally Eyes: General: appearance normal, both eyes and all related structures Visual Padilla: normal visual padilla by confrontation Neck: Neck: Yes normal visual inspection and No tender Thyroid: Thyroid normal Chest: Chest palpation & inspection: normal inspection of the chest Resp: Effort & Inspection: normal respiratory effort Cardio: Jugular venous distension: no JVD GI: Inspection: Yes normal to inspection Percussion: Yes normal to percussion Auscultation: normal bowel sounds : General: Yes no CVA tenderness Back/Spine/Pelvis: Back: no CVA tenderness Skin: General skin exam: no rashes or lesions noted Neuro: General: patient oriented x3 Extrem: General: Yes normal to inspection MDM - Overdose MDM Narrative Medical decision making narrative: Has been alert and oriented x3 and nontoxic on arrival. Admits to heroin use required Narcan. Patient monitored in the ED for 2 hours and offered detox services which he declined. He was developed by the care team for outpatient services at this time he does not want to participate in this period extensive counseling regarding opiate use and potential complication including but not limited to . Will be discharged home with take-home Narcan with family. Outpatient follow-up provided for primary care as well as hoped for [facility] and detox center. Differential Diagnosis Differential diagnosis: Likely poisoning by opiate or related narcotic and drug overdose; Unlikely cocaine intoxication, suicide attempt by multiple drug overdose, acetaminophen overdose and accidental drug ingestion Medical Records Attestation: I reviewed the patient's medical records. Lab Data Attestation: I reviewed the patient's lab results. ECG Data Interpretation: normal sinus rhythm heart rate 70 P are interval within normal limits. No acute ST segment elevation No acute changes from previous Discharge Plan Discharge Clinical Impression: Drug overdose Patient Disposition: Home, Self-Care Instructions: Narcotic Safety (ED), Narcotic Use Disorder (ED) Additional Instructions: please stop doing illicit drugs can cause serious harm to health and even Please follow-up with detox center as discussed Return if any concerns or worsening symptoms Thank you Prescriptions: No Action carvedilol 3.125 mg Tablet 3.125 mg PO BID Qty: 60 RF: 0 lisinopril 10 mg Tablet 10 mg PO DAILY Qty: 30 RF: 0 furosemide 20 mg Tablet 20 mg PO DAILY Qty: 30 RF: 0 doxycycline hyclate 100 mg Tablet 100 mg PO BID Qty: 12 RF: 0 aspirin [Ecotrin Low Strength] 81 mg tablet,delayed release (DR/EC) 81 mg PO DAILY Qty: 30 RF: 0 Referrals: ED Physician,Generic [Physician] - 2 days (Primary care ) Interventions: ED Discharge Assessment Last Done: 04/13/20 22:28 Discharge Date/Time: 04/13/20 22:29
[2020-04-13 19:32] VITALS: BP 124/66; PULSE 73; RESP 17; TEMP 36.6; O2SAT 100
--- NOTE | 2020-04-13 20:00 | MHC.CARE ---
CARE team met with this patient in 18H with the assistance of language translator. Patient was unable to engage verbally. Did open his eyes in response to his name but appeared too somnolent to participate in conversation. CARE team and language translator had to repeatedly call patient's name to get him to open eyes. Unable to continue with consult at this time due to patient's presentation. May be more able to engage later on if feeling better.
--- NOTE | 2020-04-13 21:50 | PC.NURSE ---
pt has been resting comfortably in stretcher. currently reports feeling much better, significantly more alert, warmer. able to stand and ambulate independently. requesting to leave. made call out to daughter, she will arrive to pick him up. pt denies dizziness, pain, nausea, malaise. [employer] notified.
--- NOTE | 2020-04-13 21:51 | PC.NURSE ---
ekg completed by Ame
== END 2020-04-13 22:29 | disposition home or self-care (01) ==
PROVIDERS: Emergency Provider Internal Medicine
DX: T40.1X1A Poisoning by heroin, accidental (unintentional), initial encounter (principal); Y92.9 Unspecified place or not applicable; F17.210 Nicotine dependence, cigarettes, uncomplicated; Z71.6 Tobacco abuse counseling
CPT/HCPCS: 93005; 99284

== ENCOUNTER 2022-04-20 13:18 | Inpatient (IN) | payer OTHER, SELFPAY ==
--- NOTE | ~2022-04-20 | XR_ITS ---
EXAMINATION: XR CHEST CLINICAL INFORMATION: Shortness breath. COMPARISON: 04/04/2020 and 04/01/2016. TECHNIQUE: Portable AP view of the chest was obtained. XR/XR chest 1V FINDINGS/IMPRESSION: Diffuse bilateral interstitial infiltrates, worse at the bases, with probable Lalit B-lines and small left basilar effusion. The findings appear worse compared with 04/04/2020, and suggest pulmonary edema with small left effusion; superimposed pneumonia cannot be confirmed or excluded. The heart size poorly evaluated. The aorta is mildly atherosclerotic.
[2022-04-20 13:49] VITALS: BP 142/76; BP 166/85; PULSE 90; PULSE 99; RESP 28; TEMP 36.8; O2SAT 96; BMI 19.3
--- NOTE | 2022-04-20 13:57 | ED_ITS ---
HPI - SOB/Dyspnea General Chief Complaint: Dyspnea Stated Complaint: SOB Time Seen by Provider: 04/20/22 13:55 Source: patient and EMS Mode of arrival: EMS Limitations: language barrier History of Present Illness HPI Narrative: 67-year-old male presents via EMS for 3 weeks of shortness of breath, hypoxia on O2, and tachypnea. Patient reports that he has not had Lasix 2 months. Patient also reports substernal chest pain, and cough. He denies fevers, chills, nausea, vomiting, abdominal pain, abdominal distention, falls and weakness. MD elicited complaint: shortness of breath, cough and chest pain Pertinent past history: COPD and congestive heart failure Onset (ago): week(s) (3) Context: medication noncompliance Timing: constant Severity: moderate Exacerbating factors: lying flat, exertion, movement, coughing, inspiration, t alking and deep breaths Relieving factors: nothing Known history of: COPD and congestive heart failure Associated symptoms: chest pain, pain with inspiration, cough and wheezing Treatment prior to arrival: oxygen Related Data Home oxygen amount: 2 liters Previous Rx's Medication Instructions Recorded aspirin 81 mg tablet,delayed 81 mg PO DAILY #30 tabs 04/05/20 release (Ecotrin Low Strength) carvedilol 3.125 mg tablet 3.125 mg PO BID #60 tabs 04/05/20 doxycycline hyclate 100 mg tablet 100 mg PO BID #12 tabs 04/05/20 furosemide 20 mg tablet 20 mg PO DAILY #30 tabs 04/05/20 lisinopril 10 mg tablet 10 mg PO DAILY #30 tabs 04/05/20 Allergies Allergy/AdvReac Type Severity Reaction Status Date / Time No Known Allergies Allergy Verified 04/20/22 13:48 Review of Systems Review of Systems: Constitutional: No Fever, No Chills ENT/Mouth: No Ear Pain, No Hoarseness, No sore throat Eyes: No Eye Pain, No Swelling, No Redness, No Foreign Body Cardiovascular: No Chest Pain, No SOB Respiratory: Positive Cough, positive Dyspnea, positive wheezing Gastrointestinal: No Nausea, No Vomiting, No Diarrhea, No abdominal Pain Genitourinary: No Dysuria, No Hematuria Musculoskeletal: No joint pain, No Myalgias, No Joint Swelling Skin: No Skin lacerations, No rash Neuro: No Weakness, No Numbness, No Paresthesias, No Loss of Consciousness, No Dizziness, No Headache Psych: No Anxiety/Panic, No Depression Heme/Lymph: no easy bruising, no Lymphadenopathy Endocrine: No Polyuria, No Polydipsia Yes all other systems are reviewed and are negative [facility] Past Medical History Attestation statement: The following information was validated with the patient. Source: old records reviewed Medical History Acute electrocardiogram changes Patient denies significant medical history Surgical History No pertinent past surgical history Social History Social History Household Members: Spouse Housing: House Alcohol intake: current Alcohol intake frequency: 3 or more drinks per day Alcohol type: beer and hard liquor Cigarette Packs Per Day: 2 Cigarettes Per Day: 40.0 Substance Use Type: Crack/Cocaine and Heroin Advance Directives: No Advance Directives Information Provided: Yes service: No Current occupational status: unemployed Physical Exam Vital Signs: Vital Signs: Last Vital Signs Temp 98.3 F 04/20/22 13:49 Pulse 97 04/20/22 14:25 Resp 18 04/20/22 14:25 BP 166/85 H 04/20/22 13:49 Pulse Ox 96 04/20/22 13:49 O2 Del Method 04/20/22 13:49 Oxygen Flow Rate 2 04/20/22 13:49 BMI result Body Mass Index 19.3 Appearance: Alert. Oriented X3. Moderate distress. Cachectic. Eyes: Pupils equal, round and reactive to light. Sclera nonicteric. ENT: Pharynx normal. Dry mucous membranes. Neck: Normal inspection. Neck supple. CVS: Tachycardic heart rate and rhythm. Apical pulse equal to pulses to extremities. Respiratory: No respiratory distress. Expiratory wheezing. Abdomen: Soft and nontender. No hepatosplenomegaly. Skin: Skin warm and dry. Normal skin color. Normal skin turgor. Extremities: +2 pitting edema just below the patella. Gait not assessed for safety. Neuro: No motor deficit. No sensory deficit. Cranial nerves 2-12 intact. Course Course Course Narrative: 67-year-old male presents via EMS for shortness of breath, hypoxia, edema and being out of his medications for over 3 months. Patient is a poor historian, is tangential when answering questions, review of records indicates patient has a history of CHF with an ejection fraction of 15-20%, COPD on O2 continuous, polysubstance abuse with crack cocaine, heroin and alcohol. Information obtained from hospitalist note on 04/05/2020. Patient's daughter is at bedside and able to provide detailed health history as well redirecting her father to an swer questions appropriately. 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 Patient not interested in detox at this time. Patient states that he is unable to walk to the store to get his medications and that he is out of breath just getting out of bed. He has felt like this for the past few weeks, his son requested that he present to the emergency department for evaluation. Physical exam indicates patient's O2 saturation on 2 L is 88%, I increased his O2 to 4 L nasal cannula which increased his O2 saturation to 94- 97%. Patient has coarse lung sounds at the bases, and is short of breath on minimal exertion with oxygen. 15:32 chest x-ray indicative of pulmonary edema, and suspicion for pneumonia. Patient was given Lasix on on arrival, was given Solu-Medrol, albuterol order for ceftriaxone and azithromycin at this time. Labs drawn at this time. Evon brand's O2 saturation maintains at 94-97% on 4 L nasal cannula. 15:46 daughter Gracy [phone] 15:53 sign-out to Kandice CHAMPAGNE MDM - SOB/Dyspnea Differential Diagnosis Differential diagnosis: Likely acute exacerbation of chronic obstructive airways disease, congestive heart failure, pneumonia and anemia Medical Records Attestation: I reviewed the patient's medical records. Lab Data Attestation: I reviewed the patient's lab results. Result diagrams: 04/20/22 15:24 04/20/22 15:25 Labs: Lab Results 04/20/22 04/20/22 Range/Units 15:23 15:24 WBC 10.6 (4.8-10.8) X10*3/uL RBC 5.51 (4.60-5.80) X10*6/uL Hgb 15.7 (14.0-18.0) g/dl Hct 47.8 (42.0-52.0) % MCV 86.8 (80.0-98.0) fL MCH 28.5 (27.0-33.0) pg MCHC 32.8 (31.0-36.0) g/dl RDW 15.7 (11.0-16.0) % Plt Count 301 (160-400) X10*3/uL MPV 10.5 (9.4-12.4) fL Immature Gran % (Auto) 0.3 (0.0-0.4) % Neut % (Auto) 65.2 (45-73) % Lymph % (Auto) 26.1 (20-40) % [place] % (Auto) 7.9 (2-11) % Eos % (Auto) 0.2 (0-4) % Baso % (Auto) 0.3 (0-2) % Lymph # (Auto) 2.8 (1.2-4.9) X10*3/uL [place] # (Auto) 0.8 (0.1-1.2) X10*3/uL Eos # (Auto) 0.0 (0.0-0.4) X10*3/uL Baso # (Auto) 0.0 (0.0-0.2) X10*3/uL Abs Immat Gran (auto) 0.03 (0.00-0.03) X10*3/uL Absolute Neuts (auto) 6.9 (2.0-8.3) x10*3/uL Absolute Nucleated RBC 0.000 (0.0-0.012) X10*3/uL Nucleated RBC % (auto) 0.0 (0.0-0.2) /100WBC Urine Color Yellow Urine Appearance Clear Urine pH 6.5 (5.0-9.0) Ur Specific [place] 1.010 (1.005-1.025) Urine Protein Negative (Neg-Trace) mg/dL Urine Glucose (UA) Negative (Negative) mg/dL Urine Ketones Negative (Negative) mg/dL Urine Blood Negative (Negative) Urine Nitrite Negative (Negative) Ur Leukocyte Esterase Negative (Negative) Imaging Data Chest x-ray: Attestation: I personally reviewed and interpreted this imaging study as follows: Radiologist's impression: EXAMINATION: XR CHEST CLINICAL INFORMATION: Shortness breath. COMPARISON: 04/04/2020 and 04/01/2016. TECHNIQUE: Portable AP view of the chest was obtained. XR/XR chest 1V FINDINGS/IMPRESSION: ? Diffuse bilateral interstitial infiltrates, worse at the bases, with probable Lalit B-lines and small left basilar effusion. The findings appear worse compared with 04/04/2020, and suggest pulmonary edema with small left effusion; superimposed pneumonia cannot be confirmed or excluded. ? The heart size poorly evaluated. The aorta is mildly atherosclerotic. ECG Data Attestation: I personally reviewed and interpreted this ECG as follows: ECG interpretation date: 04/20/22 ECG interpretation time: 14:20 Prior ECG tracings: available for review Interpretation: Vent. rate 91 BPM ME interval 182 ms QRS duration 100 ms QT/QTc 378/464 ms P-R-T axes 81 160 66 Sinus rhythm with Premature atrial complexes with Aberrant conduction Left atrial enlargement Right axis deviation Pulmonary disease pattern Left ventricular hypertrophy with repolarization abnormality ( [place] product ) Abnormal ECG When compared with ECG of 13-APR-2020 20:03, Aberrant conduction is now Present T wave inversion no longer evident in Anterior leads Discharge Plan Discharge Clinical Impression: Congestive heart failure Patient Disposition: Still a Patient Prescriptions: No Action carvedilol 3.125 mg Tablet 3.125 mg PO BID Qty: 60 0RF Protocol: Hold for SBP/HR < HOLD for SBP < : 90 HOLD for HR < : 60 lisinopril 10 mg Tablet 10 mg PO DAILY Qty: 30 0RF Protocol: Hold for SBP< HOLD for SBP < : 90 furosemide 20 mg Tablet 20 mg PO DAILY Qty: 30 0RF Protocol: Hold for SBP< HOLD for SBP < : 90 doxycycline hyclate 100 mg Tablet 100 mg PO BID Qty: 12 0RF aspirin [Ecotrin Low Strength] 81 mg tablet,delayed release (DR/EC) 81 mg PO DAILY Qty: 30 0RF
--- NOTE | 2022-04-20 14:00 | ECG_ITS ---
Test Reason : SOB Blood Pressure : / mmHG Vent. Rate : 091 BPM Atrial Rate : 091 BPM P-R Int : 182 ms QRS Dur : 100 ms QT Int : 378 ms P-R-T Axes : 081 160 066 degrees QTc Int : 464 ms Sinus rhythm with Premature atrial complexes with Aberrant conduction Left atrial enlargement Right axis deviation Pulmonary disease pattern T-wave inversion in Inferior leads Lateral leads Abnormal ECG When compared with ECG of 13-APR-2020 20:03, Aberrant conduction is now Present T wave inversion no longer evident in Anterior leads Heart rate has increased Referred By: Reina Bhardwaj Electronically Signed By:AJ HAWTHORNE MD
[2022-04-20] MEDS: Albuterol Sulfate 7.5 MG, Albuterol Sulfate (0.083%) 2.5 MG 10 MG INHALE (14:23)
[2022-04-20 14:25] VITALS: PULSE 97; RESP 18; O2SAT 100
[2022-04-20] MEDS: Furosemide 40 MG/4 ML VIAL IVPUSH (14:45)
[2022-04-20] MEDS: methylPREDNISolone Sod Succ 125 MG/2 ML VIAL IVPUSH (14:45)
[2022-04-20 15:31] LABS: MANUAL DIFF FLAG NO
[2022-04-20 15:37] LABS: Appearance Urine Clear; Color Urine Yellow; Glucose Urine UA Negative (Negative); Leukocyte Esterase Urine Negative (Negative); Nitrite Urine Negative (Negative); PH 6.5 (5.0-9.0); Urine Blood Negative (Negative); Urine Ketones Negative (Negative); Urine Protein Negative (Neg-Trace)
[2022-04-20 15:47] LABS: Basophils Percent Auto 0.3 % (0-2); Eosinophils Percent Auto 0.2 % (0-4); Hematocrit 47.8 % (42.0-52.0); Hemoglobin 15.7 g/dl (14.0-18.0); Imm Gran Abs Auto 0.03 X10*3/uL (0.00-0.03); Imm Gran Pct Auto 0.3 % (0.0-0.4); Lymphocytes Absolute Auto 2.8 X10*3/uL (1.2-4.9); Lymphocytes Percent Auto 26.1 % (20-40); Mean Corpuscular HGB Conc 32.8 g/dl (31.0-36.0); Mean Corpuscular Hemoglobin 28.5 pg (27.0-33.0); Mean Corpuscular Volume 86.8 fL (80.0-98.0); Mean Platelet Volume 10.5 fL (9.4-12.4); Monocytes Absolute Auto 0.8 X10*3/uL (0.1-1.2); Monocytes Percent Auto 7.9 % (2-11); Neutrophils Absolute Auto 6.9 x10*3/uL (2.0-8.3); Neutrophils Percent Auto 65.2 % (45-73); Platelet Count 301 X10*3/uL (160-400); Red Blood Count 5.51 X10*6/uL (4.60-5.80); Red Cell Distribution Width 15.7 % (11.0-16.0); White Blood Count 10.6 X10*3/uL (4.8-10.8)
[2022-04-20 15:49] LABS: Alanine Aminotransferase 12 U/L (0-40); Albumin Level 3.9 g/dL (3.5-5.0); Alkaline Phosphatase 70 U/L (39-117); Anion Gap 16 (12-20); Aspartate Amino Transferase 22 U/L (5-37); Bilirubin Direct 0.5 mg/dL (0.0-0.5); Bilirubin Total 1.3 mg/dL (0.0-1.0); Blood Urea Nitrogen 14 mg/dL (9-16); Calcium 9.1 mg/dL (8.4-10.2); Carbon Dioxide 24 mmol/L (22-29); Chloride 103 mmol/L (96-108); Estimated Glomerular Filt Rate 55; Glucose Random 94 mg/dL (60-115); INTERNATIONAL NORM RATIO 1.1 (0.9-1.1); Lipase 6 U/L (8-78); Magnesium 1.7 mg/dL (1.6-2.6); Prothrombin Time 12.6 SEC (10.0-13.1); Sodium 139 mmol/L (135-145)
[2022-04-20 15:50] LABS: Barbiturates, Urine Not Detected (Not Detect); Benzodiazepines Screen Urine Not Detected (Not Detect); Cannabinoid Screen Urine Not Detected (Not Detect); Cocaine Screen Urine POSITIVE (Not Detect); Fentanyl, urine Not Detected (Not Detect); Opiate Screen Urine Not Detected (Not Detect); Phencyclidine Screen Urine Not Detected (Not Detect)
[2022-04-20 15:52] LABS: Partial Thromboplastin Time 37.9 SEC (26.0-36.4)
[2022-04-20 15:52] LABS: Amphetamine Screen Urine Not Detected (Not Detect)
[2022-04-20] MEDS: Azithromycin 500 MG TABLET PO (15:52)
[2022-04-20] MEDS: cefTRIAXone sodium 1 GM in 0.9 % Sodium Chloride 50 ML IV (15:52)
--- NOTE | 2022-04-20 16:23 | PHA.MEDREC ---
Pharmacy Consult ? Medication Reconciliation Pharmacy has completed the medication reconciliation. Patient poor historian of medications. Called daughter (Corine - [phone]) to confirm medications. She states that all bottles at home are empty. Patient's claim history says they haven't filled medications since 07/24/21 at the earliest. Patient also claims to have not taken medications in the last 4-5 months.
[2022-04-20 17:20] LABS: B Type Natriuretic Peptide 3699 pg/mL (<100); Troponin-I High Sensitivity 83.5 ng/L (<3.5-35.0)
[2022-04-20 18:15] LABS: Troponin-I High Sensitivity 54.2 ng/L (<3.5-35.0)
[2022-04-20 18:17] LABS: Influenza A PCR NEGATIVE (Negative); Influenza B PCR NEGATIVE (Negative); Resp Syncy Virus RNA Qual PCR NEGATIVE (Negative); SARS COV2 PCR INHOUSE NEGATIVE (Negative)
[2022-04-20 18:29] LABS: Lactic Acid 1.7 mmol/L (0.5-2.0)
[2022-04-20] MEDS: ondansetron HCL 4 MG/2 ML VIAL IVPUSH (18:37)
[2022-04-20 18:57] VITALS: BP 132/82; PULSE 107; RESP 17; TEMP 35.9; O2SAT 98
[2022-04-20 20:41] VITALS: BP 143/90; PULSE 89; RESP 16; TEMP 36.4; O2SAT 97
[2022-04-20] MEDS: Heparin Sodium,Porcine 5,000 UNIT/ML VIAL 5000 UNIT SUBCUT (22:29)
[2022-04-20] MEDS: carvediloL 3.125 MG TABLET PO (22:29)
[2022-04-21] VITALS (7 sets, daily range): BP systolic 108–138; BP diastolic 63–92; PULSE 58–99; RESP 11–21; TEMP 36.1–36.8; O2SAT 95–99
--- NOTE | 2022-04-21 06:03 | P.HPHOSP_ITS ---
History of Present Illness Date of Service: 04/20/22 Chief Complaint: Shortness of breath Setswana-speaking only, history is obtained with the help of an stopboard assembler This is a 67-year-old male with past medical history CHF with reduced ejection fraction, COPD, presents to the hospital with hypoxia. Patient's daughter reports that he has not had Lasix for 2 months, although patient himself reports that he never was on that pale. Reports orthopnea, PND, and lower extremity edema for the past few days, dyspnea on exertion, no cough or sputum production. Denies any chest pain, no palpitations, no abdominal pain nausea or vomiting, no diarrhea or constipation and no urinary symptoms. Patient reports using c ocaine and crack cocaine. On arrival of EMS patient was found to be hypoxic with an O2 level in the high 80s, Labs are significant for WBC count of 2.6, hemoglobin of 15.7, hematocrit 47.8, BNP of 3699, troponin of 83.5 that decreased to 54.2, UA negative, UDS positive for cocaine, Influenza, RSV, and COVID-19 negative Chest x-ray showed diffuse bilateral interstitial infiltrates worse at bases concerning for pulmonary edema Review of Systems Review of Systems: Yes all other systems are reviewed and are negative [facility] Medical History Acute electrocardiogram changes Heart failure with reduced ejection fraction Patient denies significant medical history Family History Other No family history of coronary artery disease Surgical History No pertinent past surgical history Social History Household Members: Spouse Housing: House Alcohol intake: current Alcohol intake frequency: other Alcohol type: beer and hard liquor Cigarette Packs Per Day: 2 Cigarettes Per Day: 40.0 Smoked in Last 30 Days: Yes Use of substances other than those prescribed or required for medical reasons: Yes Substance Use Type: Crack/Cocaine and Heroin Advance Directives: No Advance Directives Information Provided: Yes service: No Current occupational status: unemployed Meds Allergies Allergy/AdvReac Type Severity Reaction Status Date / Time No Known Allergies Allergy Verified 04/20/22 13:48 Active Medications: Current Medications Acetaminophen (Acetaminophen 325 Mg Tablet) 650 mg PO Q6H PRN PRN Reason: Pain, Mild (Pain Scale 1-3) Aspirin (Aspirin Enteric Coated 81 Mg Tablet.Dr) 81 mg PO DAILY COUNT INCLUDES THE [facility] Carvedilol (Carvedilol 3.125 Mg Tablet) 3.125 mg PO BID COUNT INCLUDES THE [facility]; Protocol Last Admin: 04/20/22 22:29 Dose: 3.125 mg Docusate Sodium (Docusate Sodium 100 Mg Capsule) 100 mg PO DAILY PRN PRN Reason: Constipation Furosemide (Furosemide 40 Mg/4 Ml Vial) 40 mg IVPUSH DAILY COUNT INCLUDES THE [facility]; Protocol Heparin Sodium (Porcine) (Heparin Sodium,Porcine 5,000 Unit/Ml Vial) 5,000 unit SUBCUT Q12H COUNT INCLUDES THE [facility] Last Admin: 04/20/22 22:29 Dose: 5,000 unit Lisinopril (Lisinopril 10 Mg Tablet) 10 mg PO DAILY COUNT INCLUDES THE [facility]; Protocol Ondansetron HCl (Ondansetron Hcl 4 Mg/2 Ml Vial) 4 mg IVPUSH Q8H PRN PRN Reason: Nausea and Vomiting Pharmacy Consult (Consult Rx Perform Med Rec) 1 each MISCELLANE ONCE PRN PRN Reason: Consult order Sodium Chloride (0.9 % Sodium Chloride Flush 3 Ml Syringe) 3 ml IVFLUSH QSHIFT COUNT INCLUDES THE [facility] Last Admin: 04/21/22 00:11 Dose: Not Given Tiotropium [place] (Tiotropium [place] 18 Mcg Cap.W.Dev) 1 puff INHALE RDAILY COUNT INCLUDES THE [facility] Home Medications Medication Instructions Recorded Confirmed Last Taken Type ipratropium bromide 17 2 puff inhalation TID 04/20/22 04/20/22 Unknown History mcg/actuation HFA aerosol inhaler (Atrovent HFA) Physical Exam Vital Signs and Narrative: Vital Signs: Last Vital Signs Temp 98.2 F 04/21/22 05:38 Pulse 67 04/21/22 05:38 Resp 18 04/21/22 05:38 BP 121/80 04/21/22 05:38 Pulse Ox 95 04/21/22 05:38 O2 Del Method 04/21/22 05:38 O2 Flow Rate 4 04/21/22 05:38 Oxygen Flow Rate 2 04/20/22 13:49 BMI result Body Mass Index 19.3 Const: General: cooperative and no acute distress Orientation/conscio usness: patient oriented x3 Eyes: General: appearance normal, both eyes and all related structures Resp: Other: Crackles heard bilaterally Effort & Inspection: normal respiratory effort Cardio: Rate: regular rate Rhythm: regular rhythm GI: Palpation (GI): Soft to palpation Auscultation: normal bowel sounds Skin: General skin exam: no rashes or lesions noted Neuro: General: patient oriented x3 Cognition (Neuro): normal cognition Extrem: Other: 2+ pitting edema so General: Yes normal to inspection Results Labs CBC and Chem 7: 04/20/22 15:24 04/20/22 15:25 Labs: Laboratory Results - last 24 hr 04/20/22 04/20/22 04/20/22 15:22 15:23 15:24 MCV 86.8 MCH 28.5 MCHC 32.8 RDW 15.7 Plt Count 301 MPV 10.5 Immature Gran % (Auto) 0.3 Neut % (Auto) 65.2 Lymph % (Auto) 26.1 [place] % (Auto) 7.9 Eos % (Auto) 0.2 Baso % (Auto) 0.3 Lymph # (Auto) 2.8 [place] # (Auto) 0.8 Eos # (Auto) 0.0 Baso # (Auto) 0.0 Abs Immat Gran (auto) 0.03 Absolute Neuts (auto) 6.9 Absolute Nucleated RBC 0.000 Nucleated RBC % (auto) 0.0 PT INR APTT Anion Gap Estim Creat Clear Calc Estimated GFR Random Glucose Lactic Acid Calcium Magnesium Total Bilirubin Direct Bilirubin AST ALT Alkaline Phosphatase Troponin I High Sens B-Natriuretic Peptide Total Protein Albumin Lipase Urine Color Yellow Urine Appearance Clear Urine pH 6.5 Ur Specific [place] 1.010 Urine Protein Negative Urine Glucose (UA) Negative Urine Ketones Negative Urine Blood Negative Urine Nitrite Negative Ur Leukocyte Esterase Negative Urine Opiates Screen Not Detected Urine Fentanyl Screen Not Detected Ur Barbiturates Screen Not Detected Ur Phencyclidine Scrn Not Detected Ur Amphetamines Screen Not Detected U Benzodiazepines Scrn Not Detected Urine Cocaine Screen POSITIVE H U Marijuana (THC) Screen Not Detected Influenza Type A (PCR) Influenza Type B (PCR) RSV RNA Qual (PCR) SARS-CoV-2 RNA (RT-PCR) 04/20/22 04/20/22 04/20/22 15:25 15:25 15:25 MCV MCH MCHC RDW Plt Count MPV Immature Gran % (Auto) Neut % (Auto) Lymph % (Auto) [place] % (Auto) Eos % (Auto) Baso % (Auto) Lymph # (Auto) [place] # (Auto) Eos # (Auto) Baso # (Auto) Abs Immat Gran (auto) Absolute Neuts (auto) Absolute Nucleated RBC Nucleated RBC % (auto) PT 12.6 INR 1.1 APTT 37.9 H Anion Gap 16 Estim Creat Clear Calc 48.0 Estimated GFR 55 Random Glucose 94 Lactic Acid Calcium 9.1 Magnesium 1.7 Total Bilirubin 1.3 H Direct Bilirubin 0.5 AST 22 D ALT 12 Alkaline Phosphatase 70 Troponin I High Sens B-Natriuretic Peptide Total Protein 8.0 Albumin 3.9 Lipase 6 L Urine Color Urine Appearance Urine pH Ur Specific [place] Urine Protein Urine Glucose (UA) Urine Ketones Urine Blood Urine Nitrite Ur Leukocyte Esterase Urine Opiates Screen Urine Fentanyl Screen Ur Barbiturates Screen Ur Phencyclidine Scrn Ur Amphetamines Screen U Benzodiazepines Scrn Urine Cocaine Screen U Marijuana (THC) Screen Influenza Type A (PCR) Influenza Type B (PCR) RSV RNA Qual (PCR) SARS-CoV-2 RNA (RT-PCR) 04/20/22 04/20/22 04/20/22 15:25 15:25 17:15 MCV MCH MCHC RDW Plt Count MPV Immature Gran % (Auto) Neut % (Auto) Lymph % (Auto) [place] % (Auto) Eos % (Auto) Baso % (Auto) Lymph # (Auto) [place] # (Auto) Eos # (Auto) Baso # (Auto) Abs Immat Gran (auto) Absolute Neuts (auto) Absolute Nucleated RBC Nucleated RBC % (auto) PT INR APTT Anion Gap Estim Creat Clear Calc Estimated GFR Random Glucose Lactic Acid 1.7 Calcium Magnesium Total Bilirubin Direct Bilirubin AST ALT Alkaline Phosphatase Troponin I High Sens 83.5 H B-Natriuretic Peptide 3699 H Total Protein Albumin Lipase Urine Color Urine Appearance Urine pH Ur Specific [place] Urine Protein Urine Glucose (UA) Urine Ketones Urine Blood Urine Nitrite Ur Leukocyte Esterase Urine Opiates Screen Urine Fentanyl Screen Ur Barbiturates Screen Ur Phencyclidine Scrn Ur Amphetamines Screen U Benzodiazepines Scrn Urine Cocaine Screen U Marijuana (THC) Screen Influenza Type A (PCR) NEGATIVE Influenza Type B (PCR) NEGATIVE RSV RNA Qual (PCR) NEGATIVE SARS-CoV-2 RNA (RT-PCR) NEGATIVE 04/20/22 17:45 MCV MCH MCHC RDW Plt Count MPV Immature Gran % (Auto) Neut % (Auto) Lymph % (Auto) [place] % (Auto) Eos % (Auto) Baso % (Auto) Lymph # (Auto) [place] # (Auto) Eos # (Auto) Baso # (Auto) Abs Immat Gran (auto) Absolute Neuts (auto) Absolute Nucleated RBC Nucleated RBC % (auto) PT INR APTT Anion Gap Estim Creat Clear Calc Estimated GFR Random Glucose Lactic Acid Calcium Magnesium Total Bilirubin Direct Bilirubin AST ALT Alkaline Phosphatase Troponin I High Sens 54.2 H B-Natriuretic Peptide Total Protein Albumin Lipase Urine Color Urine Appearance Urine pH Ur Specific [place] Urine Protein Urine Glucose (UA) Urine Ketones Urine Blood Urine Nitrite Ur Leukocyte Esterase Urine Opiates Screen Urine Fentanyl Screen Ur Barbiturates Screen Ur Phencyclidine Scrn Ur Amphetamines Screen U Benzodiazepines Scrn Urine Cocaine Screen U Marijuana (THC) Screen Influenza Type A (PCR) Influenza Type B (PCR) RSV RNA Qual (PCR) SARS-CoV-2 RNA (RT-PCR) Imaging Radiologist's Impressions: Impressions Chest X-Ray 04/20/22 14:10 FINDINGS/IMPRESSION: Diffuse bilateral interstitial infiltrates, worse at the bases, with probable Lalit B-lines and small left basilar effusion. The findings appear worse compared with 04/04/2020, and suggest pulmonary edema with small left effusion; superimposed pneumonia cannot be confirmed or excluded. The heart size poorly evaluated. The aorta is mildly atherosclerotic. Assessment and Plan (1) Acute respiratory failure with hypoxia: Status: Acute (2) Acute exacerbation of CHF (congestive heart failure): Status: Acute (3) Cocaine abuse: Status: Acute Plan 67-year-old male with past medical history of CHF with reduced ejection fraction, cocaine abuse, presents to the hospital with complaints of shortness of breath # acute hypoxic respiratory failure - likely secondary to CHF exacerbation - patient chest x-ray reveals bilateral infiltrate concerning for pulmonary edema - will treat with Lasix, oxygen as required - monitor O2 a titrate down as tolerated - patient denied using oxygen at baseline but according to triage nurse report patient uses oxygen 247 # acute CHF exacerbation - has elevated BNP, noncompliant with Lasix - chest x-ray as above - will treat with IV Lasix, strict I&O, low-sodium diet, daily weight - will repeat echocardiogram - last echo from 2019 showed an ejection fraction of 15-20% - cardiology consulted # cocaine abuse - troponin slightly elevated with no delta - denies any chest pain - monitor DVT prophylaxis: Heparin subQ Given patient's acute hypoxic respiratory failure requiring oxygen, as well as CHF exacerbation requiring IV Lasix patient will require minimal 2 night inpatient hospital stay for further management Quality Stroke Does the patient have a stroke diagnosis?: No VTE Prior VTE?: No VTE Risk Level:: Medical - moderate - high VTE Device Contraindication: Treatment Not Indicated VTE Drug Contraindication: N/A - Med Ordered
[2022-04-21 06:51] LABS: MANUAL DIFF FLAG NO
[2022-04-21 06:53] LABS: Basophils Percent Auto 0.2 % (0-2); Hematocrit 43.5 % (42.0-52.0); Hemoglobin 14.9 g/dl (14.0-18.0); Imm Gran Abs Auto 0.01 X10*3/uL (0.00-0.03); Imm Gran Pct Auto 0.2 % (0.0-0.4); Lymphocytes Absolute Auto 1.2 X10*3/uL (1.2-4.9); Lymphocytes Percent Auto 25.3 % (20-40); Mean Corpuscular HGB Conc 34.3 g/dl (31.0-36.0); Mean Corpuscular Hemoglobin 29.6 pg (27.0-33.0); Mean Corpuscular Volume 86.5 fL (80.0-98.0); Mean Platelet Volume 10.6 fL (9.4-12.4); Monocytes Absolute Auto 0.5 X10*3/uL (0.1-1.2); Monocytes Percent Auto 10.1 % (2-11); Neutrophils Absolute Auto 3.1 x10*3/uL (2.0-8.3); Neutrophils Percent Auto 64.2 % (45-73); Platelet Count 256 X10*3/uL (160-400); Red Blood Count 5.03 X10*6/uL (4.60-5.80); Red Cell Distribution Width 15.3 % (11.0-16.0); White Blood Count 4.9 X10*3/uL (4.8-10.8)
[2022-04-21 07:21] LABS: Anion Gap 16 (12-20); Blood Urea Nitrogen 19 mg/dL (9-16); Calcium 8.3 mg/dL (8.4-10.2); Carbon Dioxide 24 mmol/L (22-29); Chloride 103 mmol/L (96-108); Creatinine Clr Calc Pharmacy 47.6; Estimated Glomerular Filt Rate 55; Glucose Random 191 mg/dL (60-115); Potassium 3.8 mmol/L (3.3-5.1); Sodium 139 mmol/L (135-145)
[2022-04-21] MEDS: Aspirin Enteric Coated 81 MG TABLET.DR PO (08:09)
[2022-04-21] MEDS: lisinopriL 10 MG TABLET PO (08:09)
[2022-04-21] MEDS: carvediloL 3.125 MG TABLET PO ×2 (08:09→19:32)
[2022-04-21] MEDS: Heparin Sodium,Porcine 5,000 UNIT/ML VIAL 5000 UNIT SUBCUT (08:10)
[2022-04-21] MEDS: Furosemide 40 MG/4 ML VIAL IVPUSH (08:10)
[2022-04-21] MEDS: 0.9 % Sodium Chloride Flush 3 ML SYRINGE IVFLUSH ×2 (08:14→19:33)
--- NOTE | 2022-04-21 08:33 | PC.NURSE ---
remains on 02, continue with lasix. tolerating po, am care complete. pt will be going to overflow at some point this am
[2022-04-21 09:03] LABS: B Type Natriuretic Peptide 2912 pg/mL (<100)
--- NOTE | 2022-04-21 11:46 | PM.CNCAR ---
History of Present Illness History of Present Illness Date of Service: 04/21/22 Requesting physician: Shaggy Reyes Chief complaint: CHF Exacerbation, Hypoxic Narrative: [age] year gentleman with known history of cardiomyopathy diagnosed in 2019 when he presented with COPD exacerbation the setting of cocaine use. He was not in heart failure at that point. He was started on medication advised not to use any drugs. He is returning with hypoxia and shortness of breath and clinical heart failure. He continues to use IV cocaine. Denying chest pains currently. He is saying his breathing is improving. Unclear what medication he was taking at home as there is some question whether he was not taking furosemide at home. He has not followed with our group and unclear whether he is seeing Cardiology or not. Currently on supplemental oxygen. Chest x-ray reviewed showing bilateral interstitial infiltrates with concern for pulmonary edema as well as small left-sided pleural effusion. [facility] Past Medical History Medical History Acute electrocardiogram changes Heart failure with reduced ejection fraction Patient denies significant medical history Family History Family History Other No family history of coronary artery disease Surgical History Surgical History No pertinent past surgical history Social History Social History Household Members: Spouse Housing: House Alcohol intake: current Alcohol intake frequency: other Alcohol type: beer and hard liquor Cigarette Packs Per Day: 2 Cigarettes Per Day: 40.0 Smoked in Last 30 Days: Yes Use of substances other than those prescribed or required for medical reasons: Yes Substance Use Type: Crack/Cocaine and Heroin Advance Directives: No Advance Directives Information Provided: Yes service: No Current occupational status: unemployed Meds Allergies Allergy/AdvReac Type Severity Reaction Status Date / Time No Known Allergies Allergy Verified 04/20/22 13:48 Active Medications: Current Medications Acetaminophen (Acetaminophen 325 Mg Tablet) 650 mg PO Q6H PRN PRN Reason: Pain, Mild (Pain Scale 1-3) Aspirin (Aspirin Enteric Coated 81 Mg Tablet.) 81 mg PO DAILY JUAN C Last Admin: 04/21/22 08:09 Dose: 81 mg Carvedilol (Carvedilol 3.125 Mg Tablet) 3.125 mg PO BID [facility]; Protocol Last Admin: 04/21/22 08:09 Dose: 3.125 mg Docusate Sodium (Docusate Sodium 100 Mg Capsule) 100 mg PO DAILY PRN PRN Reason: Constipation Furosemide (Furosemide 40 Mg/4 Ml Vial) 40 mg IVPUSH DAILY [facility]; Protocol Last Admin: 04/21/22 08:10 Dose: 40 mg Heparin Sodium (Porcine) (Heparin Sodium,Porcine 5,000 Unit/Ml Vial) 5,000 unit SUBCUT Q12H [facility] Last Admin: 04/21/22 08:10 Dose: 5,000 unit Lisinopril (Lisinopril 10 Mg Tablet) 10 mg PO DAILY [facility]; Protocol Last Admin: 04/21/22 08:09 Dose: 10 mg Ondansetron HCl (Ondansetron Hcl 4 Mg/2 Ml Vial) 4 mg IVPUSH Q8H PRN PRN Reason: Nausea and Vomiting Pharmacy Consult (Consult Rx Perform Med Rec) 1 each MISCELLANE ONCE PRN PRN Reason: Consult order Sodium Chloride (0.9 % Sodium Chloride Flush 3 Ml Syringe) 3 ml IVFLUSH QSHIFT [facility] Last Admin: 04/21/22 08:14 Dose: 3 ml Tiotropium [place] (Tiotropium [place] 18 Mcg Cap.W.Dev) 1 puff INHALE RDAILY [facility] Last Admin: 04/21/22 10:45 Dose: Not Given Home Medications Medication Instructions Recorded Confirmed Last Taken Type ipratropium bromide 17 2 puff inhalation TID 04/20/22 04/20/22 Unknown History mcg/actuation HFA aerosol inhaler (Atrovent HFA) Physical Exam Vital Signs: Vital Signs: Last Vital Signs Temp 98.0 F 04/21/22 07:42 Pulse 58 04/21/22 07:42 Resp 11 L 04/21/22 07:42 BP 108/63 04/21/22 07:42 Pulse Ox 99 04/21/22 07:42 O2 Del Method 04/21/22 07:42 O2 Flow Rate 4 04/21/22 07:42 Oxygen Flow Rate 2 04/20/22 13:49 BMI result Body Mass Index 19.3 GENERAL APPEARANCE: in no acute distress, on supplemental oxygen. NECK: no carotid bruit, no significant jugular venous distention or hepatojugular reflux. SKIN: no suspicious lesions, warm and dry. HEART: no murmurs, regular rate and rhythm. LUNGS: clear to auscultation bilaterally. ABDOMEN: soft, nontender. EXTREMITIES: no edema. PERIPHERAL PULSES: equal. NEUROLOGIC: No gross deficits, AAO X 3 Objective Labs and Meds Result diagrams: 04/21/22 06:35 04/21/22 06:35 Lab results: Laboratory Results - last 24 hr 04/20/22 04/20/22 04/20/22 15:22 15:23 15:24 WBC 10.6 RBC 5.51 Hgb 15.7 Hct 47.8 MCV 86.8 MCH 28.5 MCHC 32.8 RDW 15.7 Plt Count 301 MPV 10.5 Immature Gran % (Auto) 0.3 Neut % (Auto) 65.2 Lymph % (Auto) 26.1 [place] % (Auto) 7.9 Eos % (Auto) 0.2 Baso % (Auto) 0.3 Lymph # (Auto) 2.8 [place] # (Auto) 0.8 Eos # (Auto) 0.0 Baso # (Auto) 0.0 Abs Immat Gran (auto) 0.03 Absolute Neuts (auto) 6.9 Absolute Nucleated RBC 0.000 Nucleated RBC % (auto) 0.0 PT INR APTT Sodium Potassium Chloride Carbon Dioxide Anion Gap BUN Creatinine Estim Creat Clear Calc Estimated GFR Random Glucose Lactic Acid Calcium Magnesium Total Bilirubin Direct Bilirubin AST ALT Alkaline Phosphatase Troponin I High Sens B-Natriuretic Peptide Total Protein Albumin Lipase Urine Color Yellow Urine Appearance Clear Urine pH 6.5 Ur Specific [place] 1.010 Urine Protein Negative Urine Glucose (UA) Negative Urine Ketones Negative Urine Blood Negative Urine Nitrite Negative Ur Leukocyte Esterase Negative Urine Opiates Screen Not Detected Urine Fentanyl Screen Not Detected Ur Barbiturates Screen Not Detected Ur Phencyclidine Scrn Not Detected Ur Amphetamines Screen Not Detected U Benzodiazepines Scrn Not Detected Urine Cocaine Screen POSITIVE H U Marijuana (THC) Screen Not Detected Influenza Type A (PCR) Influenza Type B (PCR) RSV RNA Qual (PCR) SARS-CoV-2 RNA (RT-PCR) 04/20/22 04/20/22 04/20/22 15:25 15:25 15:25 WBC RBC Hgb Hct MCV MCH MCHC RDW Plt Count MPV Immature Gran % (Auto) Neut % (Auto) Lymph % (Auto) [place] % (Auto) Eos % (Auto) Baso % (Auto) Lymph # (Auto) [place] # (Auto) Eos # (Auto) Baso # (Auto) Abs Immat Gran (auto) Absolute Neuts (auto) Absolute Nucleated RBC Nucleated RBC % (auto) PT 12.6 INR 1.1 APTT 37.9 H Sodium 139 Potassium 4.0 Chloride 103 Carbon Dioxide 24 Anion Gap 16 BUN 14 Creatinine 1.29 Estim Creat Clear Calc 48.0 Estimated GFR 55 Random Glucose 94 Lactic Acid Calcium 9.1 Magnesium 1.7 Total Bilirubin 1.3 H Direct Bilirubin 0.5 AST 22 D ALT 12 Alkaline Phosphatase 70 Troponin I High Sens B-Natriuretic Peptide Total Protein 8.0 Albumin 3.9 Lipase 6 L Urine Color Urine Appearance Urine pH Ur Specific [place] Urine Protein Urine Glucose (UA) Urine Ketones Urine Blood Urine Nitrite Ur Leukocyte Esterase Urine Opiates Screen Urine Fentanyl Screen Ur Barbiturates Screen Ur Phencyclidine Scrn Ur Amphetamines Screen U Benzodiazepines Scrn Urine Cocaine Screen U Marijuana (THC) Screen Influenza Type A (PCR) Influenza Type B (PCR) RSV RNA Qual (PCR) SARS-CoV-2 RNA (RT-PCR) 04/20/22 04/20/22 04/20/22 15:25 15:25 17:15 WBC RBC Hgb Hct MCV MCH MCHC RDW Plt Count MPV Immature Gran % (Auto) Neut % (Auto) Lymph % (Auto) [place] % (Auto) Eos % (Auto) Baso % (Auto) Lymph # (Auto) [place] # (Auto) Eos # (Auto) Baso # (Auto) Abs Immat Gran (auto) Absolute Neuts (auto) Absolute Nucleated RBC Nucleated RBC % (auto) PT INR APTT Sodium Potassium Chloride Carbon Dioxide Anion Gap BUN Creatinine Estim Creat Clear Calc Estimated GFR Random Glucose Lactic Acid 1.7 Calcium Magnesium Total Bilirubin Direct Bilirubin AST ALT Alkaline Phosphatase Troponin I High Sens 83.5 H B-Natriuretic Peptide 3699 H Total Protein Albumin Lipase Urine Color Urine Appearance Urine pH Ur Specific [place] Urine Protein Urine Glucose (UA) Urine Ketones Urine Blood Urine Nitrite Ur Leukocyte Esterase Urine Opiates Screen Urine Fentanyl Screen Ur Barbiturates Screen Ur Phencyclidine Scrn Ur Amphetamines Screen U Benzodiazepines Scrn Urine Cocaine Screen U Marijuana (THC) Screen Influenza Type A (PCR) NEGATIVE Influenza Type B (PCR) NEGATIVE RSV RNA Qual (PCR) NEGATIVE SARS-CoV-2 RNA (RT-PCR) NEGATIVE 04/20/22 04/21/22 04/21/22 17:45 06:35 06:35 WBC 4.9 RBC 5.03 Hgb 14.9 Hct 43.5 MCV 86.5 MCH 29.6 MCHC 34.3 RDW 15.3 Plt Count 256 MPV 10.6 Immature Gran % (Auto) 0.2 Neut % (Auto) 64.2 Lymph % (Auto) 25.3 [place] % (Auto) 10.1 Eos % (Auto) 0.0 Baso % (Auto) 0.2 Lymph # (Auto) 1.2 [place] # (Auto) 0.5 Eos # (Auto) 0.0 Baso # (Auto) 0.0 Abs Immat Gran (auto) 0.01 Absolute Neuts (auto) 3.1 Absolute Nucleated RBC 0.000 Nucleated RBC % (auto) 0.0 PT INR APTT Sodium 139 Potassium 3.8 Chloride 103 Carbon Dioxide 24 Anion Gap 16 BUN 19 H Creatinine 1.30 Estim Creat Clear Calc 47.6 Estimated GFR 55 Random Glucose 191 H D Lactic Acid Calcium 8.3 L D Magnesium Total Bilirubin Direct Bilirubin AST ALT Alkaline Phosphatase Troponin I High Sens 54.2 H B-Natriuretic Peptide Total Protein Albumin Lipase Urine Color Urine Appearance Urine pH Ur Specific [place] Urine Protein Urine Glucose (UA) Urine Ketones Urine Blood Urine Nitrite Ur Leukocyte Esterase Urine Opiates Screen Urine Fentanyl Screen Ur Barbiturates Screen Ur Phencyclidine Scrn Ur Amphetamines Screen U Benzodiazepines Scrn Urine Cocaine Screen U Marijuana (THC) Screen Influenza Type A (PCR) Influenza Type B (PCR) RSV RNA Qual (PCR) SARS-CoV-2 RNA (RT-PCR) 04/21/22 06:35 WBC RBC Hgb Hct MCV MCH MCHC RDW Plt Count MPV Immature Gran % (Auto) Neut % (Auto) Lymph % (Auto) [place] % (Auto) Eos % (Auto) Baso % (Auto) Lymph # (Auto) [place] # (Auto) Eos # (Auto) Baso # (Auto) Abs Immat Gran (auto) Absolute Neuts (auto) Absolute Nucleated RBC Nucleated RBC % (auto) PT INR APTT Sodium Potassium Chloride Carbon Dioxide Anion Gap BUN Creatinine Estim Creat Clear Calc Estimated GFR Random Glucose Lactic Acid Calcium Magnesium Total Bilirubin Direct Bilirubin AST ALT Alkaline Phosphatase Troponin I High Sens B-Natriuretic Peptide 2912 H Total Protein Albumin Lipase Urine Color Urine Appearance Urine pH Ur Specific [place] Urine Protein Urine Glucose (UA) Urine Ketones Urine Blood Urine Nitrite Ur Leukocyte Esterase Urine Opiates Screen Urine Fentanyl Screen Ur Barbiturates Screen Ur Phencyclidine Scrn Ur Amphetamines Screen U Benzodiazepines Scrn Urine Cocaine Screen U Marijuana (THC) Screen Influenza Type A (PCR) Influenza Type B (PCR) RSV RNA Qual (PCR) SARS-CoV-2 RNA (RT-PCR) Imaging Radiologist's impression: Impressions Chest X-Ray 04/20/22 14:10 FINDINGS/IMPRESSION: Diffuse bilateral interstitial infiltrates, worse at the bases, with probable Lalit B-lines and small left basilar effusion. The findings appear worse compared with 04/04/2020, and suggest pulmonary edema with small left effusion; superimposed pneumonia cannot be confirmed or excluded. The heart size poorly evaluated. The aorta is mildly atherosclerotic. Assessment and Plan (1) Acute exacerbation of CHF (congestive heart failure): Status: Acute (2) Cocaine abuse: Status: Acute Plan [age] gentleman with cocaine use and known cardiomyopathy with EF of 15-20% diagnosed in 2019 was presenting with congestive heart failure. Continues to use cocaine. Clinically euvolemic. Can be changed to oral diuretics, Lasix 40 mg p.o. daily. Changing lisinopril to losartan. If he follows up as outpatient and we will change him to Entresto as outpatient. Continue carvedilol as before. Will check echocardiogram to reassess LVEF. I had a detailed discussion with the patient using recreation specialist and I have explained to him that he has severe cardiomyopathy diagnosed 2 years ago due to drug abuse any continues to use drugs. It is important for his recovery that he should stop using cocaine at this stage. I think we should medically treat him for now and not do any aggressive measures like cardiac catheterization till he shows that he is going to use stop using drugs because otherwise the outcome may not change despite our efforts. Thank you for allowing me to participate in the care of your patient. Please feel free to contact me if you have any questions. Procedures Date of Service Date of Service: 04/21/22
--- NOTE | 2022-04-21 12:02 | MHC.CM.PN ---
with interpertor pt states pts son lives above him he had no servcies care team to see pt vitaly vax x 2 filed hcp has own ride home
--- NOTE | 2022-04-21 13:43 | P.PNIM_ITS ---
Subjective Subjective Date of Service: 04/21/22 Interval History: the patient was seen and evaluated this morning Laying in bed, feels improvement but still having dyspnea denies chest pain No reported other overnight events. Systemic review: No fever, chills or weakness No chest pain, palpitation dyspnea on exertion, shortness of breathimproving No abdominal pain, nausea or vomiting No urinary symptoms No reported rash Physical Exam Vital Signs: Vital Signs: Last Vital Signs Temp 98.0 F 04/21/22 07:42 Pulse 86 04/21/22 12:05 Resp 18 04/21/22 12:05 BP 108/63 04/21/22 07:42 Pulse Ox 99 04/21/22 07:42 O2 Del Method 04/21/22 07:42 O2 Flow Rate 4 04/21/22 07:42 Oxygen Flow Rate 2 04/20/22 13:49 BMI result Body Mass Index 19.3 Const: Other: Constitutional : Awake, interactive, not in distress Neck : Normal inspection, Supple Cardiovascular : RRR, no JVP, trace lower extremity edema Respiratory : Fair bilateral air entry, basal fine crackles Gastrointestinal: soft, lax, Normal bowel sounds, Non tender Skin : Warm, Dry Neurological : Alert & oriented x3, No focal deficit Objective Data Active Medications Acetaminophen (Acetaminophen 325 Mg Tablet) 650 mg PO Q6H PRN PRN Reason: Pain, Mild (Pain Scale 1-3) Aspirin (Aspirin Enteric Coated 81 Mg Tablet.) 81 mg PO DAILY [facility] Last Admin: 04/21/22 08:09 Dose: 81 mg Documented By: MONICA Carvedilol (Carvedilol 3.125 Mg Tablet) 3.125 mg PO BID [facility]; Protocol Last Admin: 04/21/22 08:09 Dose: 3.125 mg Documented By: MONICA Docusate Sodium (Docusate Sodium 100 Mg Capsule) 100 mg PO DAILY PRN PRN Reason: Constipation Furosemide (Furosemide 40 Mg/4 Ml Vial) 40 mg IVPUSH DAILY [facility]; Protocol Last Admin: 04/21/22 08:10 Dose: 40 mg Documented By: MONICA Heparin Sodium (Porcine) (Heparin Sodium,Porcine 5,000 Unit/Ml Vial) 5,000 unit SUBCUT Q12H [facility] Last Admin: 04/21/22 08:10 Dose: 5,000 unit Documented By: MONICA Losartan Potassium (Losartan Potassium 50 Mg Tablet) 50 mg PO DAILY [facility]; Protocol Ondansetron HCl (Ondansetron Hcl 4 Mg/2 Ml Vial) 4 mg IVPUSH Q8H PRN PRN Reason: Nausea and Vomiting Pharmacy Consult (Consult Rx Perform Med Rec) 1 each MISCELLANE ONCE PRN PRN Reason: Consult order Sodium Chloride (0.9 % Sodium Chloride Flush 3 Ml Syringe) 3 ml IVFLUSH QSHIFT [facility] Last Admin: 04/21/22 08:14 Dose: 3 ml Documented By: MONICA Tiotropium [place] (Tiotropium [place] 18 Mcg Cap.W.Dev) 1 puff INHALE RDAILY [facility] Last Admin: 04/21/22 12:04 Dose: 1 puff Documented By: ANUM Labs CBC & Chem 7: 04/21/22 06:35 04/21/22 06:35 Labs: Laboratory Results - last 24 hr 04/20/22 04/20/22 04/20/22 15:22 15:23 15:24 MCV 86.8 MCH 28.5 MCHC 32.8 RDW 15.7 Plt Count 301 MPV 10.5 Immature Gran % (Auto) 0.3 Neut % (Auto) 65.2 Lymph % (Auto) 26.1 [place] % (Auto) 7.9 Eos % (Auto) 0.2 Baso % (Auto) 0.3 Lymph # (Auto) 2.8 [place] # (Auto) 0.8 Eos # (Auto) 0.0 Baso # (Auto) 0.0 Abs Immat Gran (auto) 0.03 Absolute Neuts (auto) 6.9 Absolute Nucleated RBC 0.000 Nucleated RBC % (auto) 0.0 PT INR APTT Anion Gap Estim Creat Clear Calc Estimated GFR Random Glucose Lactic Acid Calcium Magnesium Total Bilirubin Direct Bilirubin AST ALT Alkaline Phosphatase Troponin I High Sens B-Natriuretic Peptide Total Protein Albumin Lipase Urine Color Yellow Urine Appearance Clear Urine pH 6.5 Ur Specific [place] 1.010 Urine Protein Negative Urine Glucose (UA) Negative Urine Ketones Negative Urine Blood Negative Urine Nitrite Negative Ur Leukocyte Esterase Negative Urine Opiates Screen Not Detected Urine Fentanyl Screen Not Detected Ur Barbiturates Screen Not Detected Ur Phencyclidine Scrn Not Detected Ur Amphetamines Screen Not Detected U Benzodiazepines Scrn Not Detected Urine Cocaine Screen POSITIVE H U Marijuana (THC) Screen Not Detected Influenza Type A (PCR) Influenza Type B (PCR) RSV RNA Qual (PCR) SARS-CoV-2 RNA (RT-PCR) 04/20/22 04/20/22 04/20/22 15:25 15:25 15:25 MCV MCH MCHC RDW Plt Count MPV Immature Gran % (Auto) Neut % (Auto) Lymph % (Auto) [place] % (Auto) Eos % (Auto) Baso % (Auto) Lymph # (Auto) [place] # (Auto) Eos # (Auto) Baso # (Auto) Abs Immat Gran (auto) Absolute Neuts (auto) Absolute Nucleated RBC Nucleated RBC % (auto) PT 12.6 INR 1.1 APTT 37.9 H Anion Gap 16 Estim Creat Clear Calc 48.0 Estimated GFR 55 Random Glucose 94 Lactic Acid Calcium 9.1 Magnesium 1.7 Total Bilirubin 1.3 H Direct Bilirubin 0.5 AST 22 D ALT 12 Alkaline Phosphatase 70 Troponin I High Sens B-Natriuretic Peptide Total Protein 8.0 Albumin 3.9 Lipase 6 L Urine Color Urine Appearance Urine pH Ur Specific [place] Urine Protein Urine Glucose (UA) Urine Ketones Urine Blood Urine Nitrite Ur Leukocyte Esterase Urine Opiates Screen Urine Fentanyl Screen Ur Barbiturates Screen Ur Phencyclidine Scrn Ur Amphetamines Screen U Benzodiazepines Scrn Urine Cocaine Screen U Marijuana (THC) Screen Influenza Type A (PCR) Influenza Type B (PCR) RSV RNA Qual (PCR) SARS-CoV-2 RNA (RT-PCR) 04/20/22 04/20/22 04/20/22 15:25 15:25 17:15 MCV MCH MCHC RDW Plt Count MPV Immature Gran % (Auto) Neut % (Auto) Lymph % (Auto) [place] % (Auto) Eos % (Auto) Baso % (Auto) Lymph # (Auto) [place] # (Auto) Eos # (Auto) Baso # (Auto) Abs Immat Gran (auto) Absolute Neuts (auto) Absolute Nucleated RBC Nucleated RBC % (auto) PT INR APTT Anion Gap Estim Creat Clear Calc Estimated GFR Random Glucose Lactic Acid 1.7 Calcium Magnesium Total Bilirubin Direct Bilirubin AST ALT Alkaline Phosphatase Troponin I High Sens 83.5 H B-Natriuretic Peptide 3699 H Total Protein Albumin Lipase Urine Color Urine Appearance Urine pH Ur Specific [place] Urine Protein Urine Glucose (UA) Urine Ketones Urine Blood Urine Nitrite Ur Leukocyte Esterase Urine Opiates Screen Urine Fentanyl Screen Ur Barbiturates Screen Ur Phencyclidine Scrn Ur Amphetamines Screen U Benzodiazepines Scrn Urine Cocaine Screen U Marijuana (THC) Screen Influenza Type A (PCR) NEGATIVE Influenza Type B (PCR) NEGATIVE RSV RNA Qual (PCR) NEGATIVE SARS-CoV-2 RNA (RT-PCR) NEGATIVE 04/20/22 04/21/22 04/21/22 17:45 06:35 06:35 MCV 86.5 MCH 29.6 MCHC 34.3 RDW 15.3 Plt Count 256 MPV 10.6 Immature Gran % (Auto) 0.2 Neut % (Auto) 64.2 Lymph % (Auto) 25.3 [place] % (Auto) 10.1 Eos % (Auto) 0.0 Baso % (Auto) 0.2 Lymph # (Auto) 1.2 [place] # (Auto) 0.5 Eos # (Auto) 0.0 Baso # (Auto) 0.0 Abs Immat Gran (auto) 0.01 Absolute Neuts (auto) 3.1 Absolute Nucleated RBC 0.000 Nucleated RBC % (auto) 0.0 PT INR APTT Anion Gap 16 Estim Creat Clear Calc 47.6 Estimated GFR 55 Random Glucose 191 H D Lactic Acid Calcium 8.3 L D Magnesium Total Bilirubin Direct Bilirubin AST ALT Alkaline Phosphatase Troponin I High Sens 54.2 H B-Natriuretic Peptide Total Protein Albumin Lipase Urine Color Urine Appearance Urine pH Ur Specific [place] Urine Protein Urine Glucose (UA) Urine Ketones Urine Blood Urine Nitrite Ur Leukocyte Esterase Urine Opiates Screen Urine Fentanyl Screen Ur Barbiturates Screen Ur Phencyclidine Scrn Ur Amphetamines Screen U Benzodiazepines Scrn Urine Cocaine Screen U Marijuana (THC) Screen Influenza Type A (PCR) Influenza Type B (PCR) RSV RNA Qual (PCR) SARS-CoV-2 RNA (RT-PCR) 04/21/22 06:35 MCV MCH MCHC RDW Plt Count MPV Immature Gran % (Auto) Neut % (Auto) Lymph % (Auto) [place] % (Auto) Eos % (Auto) Baso % (Auto) Lymph # (Auto) [place] # (Auto) Eos # (Auto) Baso # (Auto) Abs Immat Gran (auto) Absolute Neuts (auto) Absolute Nucleated RBC Nucleated RBC % (auto) PT INR APTT Anion Gap Estim Creat Clear Calc Estimated GFR Random Glucose Lactic Acid Calcium Magnesium Total Bilirubin Direct Bilirubin AST ALT Alkaline Phosphatase Troponin I High Sens B-Natriuretic Peptide 2912 H Total Protein Albumin Lipase Urine Color Urine Appearance Urine pH Ur Specific [place] Urine Protein Urine Glucose (UA) Urine Ketones Urine Blood Urine Nitrite Ur Leukocyte Esterase Urine Opiates Screen Urine Fentanyl Screen Ur Barbiturates Screen Ur Phencyclidine Scrn Ur Amphetamines Screen U Benzodiazepines Scrn Urine Cocaine Screen U Marijuana (THC) Screen Influenza Type A (PCR) Influenza Type B (PCR) RSV RNA Qual (PCR) SARS-CoV-2 RNA (RT-PCR) Assessment and Plan (1) Acute respiratory failure with hypoxia: Status: Acute (2) Cocaine abuse: Status: Acute (3) Acute exacerbation of CHF (congestive heart failure): Status: Acute (4) Cardiomyopathy: Status: Acute Plan 67-year-old male with past medical history of CHF with reduced ejection fraction, cocaine abuse, presents to the hospital with complaints of shortness of breath # acute hypoxic respiratory failure secondary to systolic CHF exacerbation CXR showed bilateral infiltrate concerning for pulmonary edema Continue with Lasix Wean down oxygen as tolerated # acute systolic CHF exacerbation with CMP elevated BNP, report being noncompliant with Lasix Continue Lasix strict I&O, low-sodium diet, daily weight repeat echocardiogram last echo from 2019 showed an ejection fraction of 15-20% Cardiology input appreciated, consider change Lasix to p.o., change lisinopril to losartan, consider Entresto as outpatient # cocaine abuse Explained to him the need to stop Get Addiction team evaluation DVT prophylaxis Heparin subQ Given patient's acute hypoxic respiratory failure requiring oxygen secondary to CHF exacerbation requiring IV Lasix patient will require overnight inpatient hospital stay for further management Quality Stroke Does the patient have a stroke diagnosis?: No VTE Prior VTE?: No VTE Risk Level:: Medical - moderate - high VTE Device Contraindication: Treatment Not Indicated VTE Drug Contraindication: N/A - Med Ordered
--- NOTE | 2022-04-21 16:10 | PC.NURSE ---
Patient arrived to the floor at 1610, Slovak speaking only, msg left for unit aide services requesting assistance with admission.
[2022-04-21] MEDS: Acetaminophen 325 MG TABLET 650 MG PO (19:36)
[2022-04-22 03:32] VITALS: BP 120/67; PULSE 98; RESP 19; TEMP 36.7
[2022-04-22 06:50] LABS: Anion Gap 13 (12-20); Blood Urea Nitrogen 22 mg/dL (9-16); Calcium 8.3 mg/dL (8.4-10.2); Carbon Dioxide 25 mmol/L (22-29); Chloride 106 mmol/L (96-108); Creatinine Clr Calc Pharmacy 52.9; Estimated Glomerular Filt Rate > 60; Glucose Random 82 mg/dL (60-115); Potassium 4.3 mmol/L (3.3-5.1); Sodium 140 mmol/L (135-145)
[2022-04-22 06:52] LABS: B Type Natriuretic Peptide 1234 pg/mL (<100)
[2022-04-22 06:56] VITALS: BP 102/68; PULSE 70; RESP 17; TEMP 36.4; O2SAT 98
--- NOTE | 2022-04-22 07:00 | CA_ITS ---
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 The left ventricular systolic function is severely decreased. The visually estimated ejection fraction is <10%. - Left ventricle is dilated. - Spectral Doppler is indicative of a pseudonormal filling pattern. E/E prime ratio is >15, consistent with elevated filling pressures. - Normal right ventricular cavity size. There is severely decreased right ventricular systolic function. - There is mild mitral valve regurgitation. - There is a trivial pericardial effusion. There is a moderate left sided pleural effusion. Findings Left Ventricle There is mildly increased left ventricular wall thickness. The left ventricular systolic function is severely decreased. The visually estimated ejection fraction is <10%. There is severe global hypokinesis. Abnormal diastolic function is noted. Spectral Doppler is indicative of a pseudonormal filling pattern. E/E prime ratio is >15, consistent with elevated filling pressures. Left ventricle is dilated. Right Ventricle Normal right ventricular cavity size. There is severely decreased right ventricular systolic function. Atria The left atrium is severely dilated. Aortic Valve Normal aortic valve structure and function. There is no aortic valve stenosis. There is no aortic valve regurgitation. Mitral Valve There is mild anterior and posterior mitral leaflet thickening. There is mild mitral valve regurgitation. There is no mitral valve stenosis. Pulmonic Valve Normal pulmonic valve structure and function. There is trace pulmonic valve regurgitation. Tricuspid Valve Normal tricuspid valve structure. There is trace tricuspid valve regurgitation. Tricuspid regurgitation envelope is inadequate for calculation of right ventricular systolic pressure. Normal right atrial pressure. Great Vessels All visible segments of the aorta are normal in size. The visualized portions of the pulmonary artery and branches are normal. Venous The inferior vena cava is normal in size and collapses greater than 50% with inspiration. Pericardium/Pleural There is a trivial pericardial effusion. There is a moderate left sided pleural effusion. Prior Study Comparison Changes noted compared to prior study dated: 04/04/2020. Dilated LV with EF <10%. Moderate pleural and trivial pericardial effusion noted. Measurements 2D Linear Measurements IVSd: 1.14 0.6-0.9/0.6-1.0 cm LVIDd: 6.26 3.9-5.3/4.2-5.9 cm LVIDd Index: 3.48 2.4-3.2/2.2-3.1 cm/m2 LVIDs: 5.58 2.0-3.6 cm LVPWd: 1.05 0.7-1.1 cm Ao Root: 3.50 2.1-3.5 cm LA Diam: 3.50 2.7-3.8/3.0-4.0 cm LAIDs Index: 1.94 1.5-2.3 cm/m2 LV Mass: 372.36 67-162/88-224 g LV Mass Index: 206.87 43-95/49-115 g/m2 LVOT Diam: 2.20 3.0+(-)1.3 cm Mitral Valve MV Pk E: 1.09 MV PK A: 0.60 MV Decel Time: 180.00 E/A: 1.80 E'Lateral: 6.53 E'Medial: 3.05 E/E' Med: 35.70 E/E' Lat: 16.70 PHT: 53.00 MVA PHT: 4.15 Decel [place]: 6.04 Aortic Valve AoV Pk Vidal: 1.62 AoV Mn Vidal: 0.94 AoV VTI: 0.31 AoV Pk Grad: 10.00 Aov Mn Grad: 5.00 CHRISTEL Cont.VTI: 1.29 LVOT LVOT Pk Vidal: 0.65 LVOT Mn Vidal: 0.43 LVOT VTI: 0.11 LVOT Pk Grad: 2.00 LVOT Mn Grad: 1.00 LVOT Diam: 2.20 LVOT Area: 3.80 Diastolic Function MV Pk E: 1.09 MV Pk A: 0.60 E/A: 1.80 E'Medial: 3.05 E/E' Med: 35.70 E' Laterial: 6.53 E/E' Lat: 16.70 Right Ventricle TAPSE (mm): 14.20 TVS' Vidal: 5.66 Tricuspid Valve TR Pk Vidal: 2.32 TR Pk Grad: 22.00 Great Vessels Aorta Ao Root-2D: 3.50 2.0-3.7 cm Sinus of Valsalva: 3.50 2.0-3.5 cm Ao Asc: 2.90 2.1-3.4 cm Pulmonary Valve PV Pk Vidal: 0.72 Peak PV Grad: 2.00 Updated in Other Vendor System with Status of Final Jeremías Luciano MD electronically signed on 04/22/2022 3:43:27 PM with status of Final
[2022-04-22] MEDS: Heparin Sodium,Porcine 5,000 UNIT/ML VIAL 5000 UNIT SUBCUT ×2 (09:34→22:14)
[2022-04-22] MEDS: Losartan Potassium 50 MG TABLET PO (09:34)
[2022-04-22] MEDS: Furosemide 40 MG/4 ML VIAL IVPUSH (09:35)
[2022-04-22] MEDS: Aspirin Enteric Coated 81 MG TABLET.DR PO (09:35)
[2022-04-22] MEDS: carvediloL 3.125 MG TABLET PO ×2 (09:35→22:10)
[2022-04-22] MEDS: 0.9 % Sodium Chloride Flush 3 ML SYRINGE IVFLUSH ×2 (09:35→22:14)
[2022-04-22 11:01] VITALS: BP 118/63; PULSE 56; RESP 16; TEMP 36.6; O2SAT 99
--- NOTE | 2022-04-22 13:16 | HO.ADDICTCON ---
History of Present Illness Date of Service: 04/22/2022 Chief Complaint: CHF Exacerbation, Hypoxic Reason for Consult: cocaine use HPI Narrative: Patient is a 67 year old Kinyarwanda speaking male currently medically admitted with CHF exacerbation. Consult requested due to patients cocaine use. Patient seen in room 487, awake, alert, pleasant and engaged in interview. Reporting daily IV cocaine use for several years. Reports previously using opiates as well, but has since stopped using since last hospital admission in 2019. He reports I was having too many overdoses, I needed to stop . Reporting numerous ATS admissions. Aware of health risks associated with continued cocaine use. When asked if he had interest in stopping or reducing use, he replied that is very hard to stop, and he is unsure if he wants to. Inquired if patient was interest in resources for safer use, or even treatment following discharge--patient stated that he would think about it. Review of Systems Constitutional: Reports as per HPI and Reports no additional constitutional complaints Diagnostics Vital Signs (24Hr): Vital Signs - 24 hr 04/21/22 15:27 04/21/22 18:08 04/21/22 20:00 Temperature 98.2 F 96.9 F 97.4 F Pulse Rate 76 68 64 Respiratory Rate 21 H 16 16 Blood Pressure 136/92 H 134/72 124/63 Pulse Oximetry 96 99 96 Oxygen Delivery Method Nasal Cannula Nasal Cannula Nasal Cannula Oxygen Flow Rate 2 3 2 04/21/22 23:48 04/22/22 03:32 04/22/22 06:56 Temperature 98.3 F 98.1 F 97.5 F Pulse Rate 99 98 70 Respiratory Rate 18 19 17 Blood Pressure 138/70 120/67 102/68 Pulse Oximetry 99 98 Oxygen Delivery Method Room Air Nasal Cannula Nasal Cannula Oxygen Flow Rate 2 2 04/22/22 11:01 Temperature 97.8 F Pulse Rate 56 Respiratory Rate 16 Blood Pressure 118/63 Pulse Oximetry 99 Oxygen Delivery Method Nasal Cannula Oxygen Flow Rate 1 BMI result Body Mass Index 19.3 Labs Results: 04/21/22 06:35 04/22/22 05:48 Labs: Laboratory Results - last 48 hr 04/20/22 04/20/22 04/20/22 15:22 15:23 15:24 WBC 10.6 RBC 5.51 Hgb 15.7 Hct 47.8 MCV 86.8 MCH 28.5 MCHC 32.8 RDW 15.7 Plt Count 301 MPV 10.5 Immature Gran % (Auto) 0.3 Neut % (Auto) 65.2 Lymph % (Auto) 26.1 [place] % (Auto) 7.9 Eos % (Auto) 0.2 Baso % (Auto) 0.3 Lymph # (Auto) 2.8 [place] # (Auto) 0.8 Eos # (Auto) 0.0 Baso # (Auto) 0.0 Abs Immat Gran (auto) 0.03 Absolute Neuts (auto) 6.9 Absolute Nucleated RBC 0.000 Nucleated RBC % (auto) 0.0 PT INR APTT Sodium Potassium Chloride Carbon Dioxide Anion Gap BUN Creatinine Estim Creat Clear Calc Estimated GFR Random Glucose Lactic Acid Calcium Magnesium Total Bilirubin Direct Bilirubin AST ALT Alkaline Phosphatase Troponin I High Sens B-Natriuretic Peptide Total Protein Albumin Lipase Urine Color Yellow Urine Appearance Clear Urine pH 6.5 Ur Specific [place] 1.010 Urine Protein Negative Urine Glucose (UA) Negative Urine Ketones Negative Urine Blood Negative Urine Nitrite Negative Ur Leukocyte Esterase Negative Urine Opiates Screen Not Detected Urine Fentanyl Screen Not Detected Ur Barbiturates Screen Not Detected Ur Phencyclidine Scrn Not Detected Ur Amphetamines Screen Not Detected U Benzodiazepines Scrn Not Detected Urine Cocaine Screen POSITIVE H U Marijuana (THC) Screen Not Detected Influenza Type A (PCR) Influenza Type B (PCR) RSV RNA Qual (PCR) SARS-CoV-2 RNA (RT-PCR) 04/20/22 04/20/22 04/20/22 15:25 15:25 15:25 WBC RBC Hgb Hct MCV MCH MCHC RDW Plt Count MPV Immature Gran % (Auto) Neut % (Auto) Lymph % (Auto) [place] % (Auto) Eos % (Auto) Baso % (Auto) Lymph # (Auto) [place] # (Auto) Eos # (Auto) Baso # (Auto) Abs Immat Gran (auto) Absolute Neuts (auto) Absolute Nucleated RBC Nucleated RBC % (auto) PT 12.6 INR 1.1 APTT 37.9 H Sodium 139 Potassium 4.0 Chloride 103 Carbon Dioxide 24 Anion Gap 16 BUN 14 Creatinine 1.29 Estim Creat Clear Calc 48.0 Estimated GFR 55 Random Glucose 94 Lactic Acid Calcium 9.1 Magnesium 1.7 Total Bilirubin 1.3 H Direct Bilirubin 0.5 AST 22 D ALT 12 Alkaline Phosphatase 70 Troponin I High Sens B-Natriuretic Peptide Total Protein 8.0 Albumin 3.9 Lipase 6 L Urine Color Urine Appearance Urine pH Ur Specific [place] Urine Protein Urine Glucose (UA) Urine Ketones Urine Blood Urine Nitrite Ur Leukocyte Esterase Urine Opiates Screen Urine Fentanyl Screen Ur Barbiturates Screen Ur Phencyclidine Scrn Ur Amphetamines Screen U Benzodiazepines Scrn Urine Cocaine Screen U Marijuana (THC) Screen Influenza Type A (PCR) Influenza Type B (PCR) RSV RNA Qual (PCR) SARS-CoV-2 RNA (RT-PCR) 04/20/22 04/20/22 04/20/22 15:25 15:25 17:15 WBC RBC Hgb Hct MCV MCH MCHC RDW Plt Count MPV Immature Gran % (Auto) Neut % (Auto) Lymph % (Auto) [place] % (Auto) Eos % (Auto) Baso % (Auto) Lymph # (Auto) [place] # (Auto) Eos # (Auto) Baso # (Auto) Abs Immat Gran (auto) Absolute Neuts (auto) Absolute Nucleated RBC Nucleated RBC % (auto) PT INR APTT Sodium Potassium Chloride Carbon Dioxide Anion Gap BUN Creatinine Estim Creat Clear Calc Estimated GFR Random Glucose Lactic Acid 1.7 Calcium Magnesium Total Bilirubin Direct Bilirubin AST ALT Alkaline Phosphatase Troponin I High Sens 83.5 H B-Natriuretic Peptide 3699 H Total Protein Albumin Lipase Urine Color Urine Appearance Urine pH Ur Specific [place] Urine Protein Urine Glucose (UA) Urine Ketones Urine Blood Urine Nitrite Ur Leukocyte Esterase Urine Opiates Screen Urine Fentanyl Screen Ur Barbiturates Screen Ur Phencyclidine Scrn Ur Amphetamines Screen U Benzodiazepines Scrn Urine Cocaine Screen U Marijuana (THC) Screen Influenza Type A (PCR) NEGATIVE Influenza Type B (PCR) NEGATIVE RSV RNA Qual (PCR) NEGATIVE SARS-CoV-2 RNA (RT-PCR) NEGATIVE 04/20/22 04/21/22 04/21/22 17:45 06:35 06:35 WBC 4.9 RBC 5.03 Hgb 14.9 Hct 43.5 MCV 86.5 MCH 29.6 MCHC 34.3 RDW 15.3 Plt Count 256 MPV 10.6 Immature Gran % (Auto) 0.2 Neut % (Auto) 64.2 Lymph % (Auto) 25.3 [place] % (Auto) 10.1 Eos % (Auto) 0.0 Baso % (Auto) 0.2 Lymph # (Auto) 1.2 [place] # (Auto) 0.5 Eos # (Auto) 0.0 Baso # (Auto) 0.0 Abs Immat Gran (auto) 0.01 Absolute Neuts (auto) 3.1 Absolute Nucleated RBC 0.000 Nucleated RBC % (auto) 0.0 PT INR APTT Sodium 139 Potassium 3.8 Chloride 103 Carbon Dioxide 24 Anion Gap 16 BUN 19 H Creatinine 1.30 Estim Creat Clear Calc 47.6 Estimated GFR 55 Random Glucose 191 H D Lactic Acid Calcium 8.3 L D Magnesium Total Bilirubin Direct Bilirubin AST ALT Alkaline Phosphatase Troponin I High Sens 54.2 H B-Natriuretic Peptide Total Protein Albumin Lipase Urine Color Urine Appearance Urine pH Ur Specific [place] Urine Protein Urine Glucose (UA) Urine Ketones Urine Blood Urine Nitrite Ur Leukocyte Esterase Urine Opiates Screen Urine Fentanyl Screen Ur Barbiturates Screen Ur Phencyclidine Scrn Ur Amphetamines Screen U Benzodiazepines Scrn Urine Cocaine Screen U Marijuana (THC) Screen Influenza Type A (PCR) Influenza Type B (PCR) RSV RNA Qual (PCR) SARS-CoV-2 RNA (RT-PCR) 04/21/22 04/22/22 04/22/22 06:35 05:48 05:48 WBC RBC Hgb Hct MCV MCH MCHC RDW Plt Count MPV Immature Gran % (Auto) Neut % (Auto) Lymph % (Auto) [place] % (Auto) Eos % (Auto) Baso % (Auto) Lymph # (Auto) [place] # (Auto) Eos # (Auto) Baso # (Auto) Abs Immat Gran (auto) Absolute Neuts (auto) Absolute Nucleated RBC Nucleated RBC % (auto) PT INR APTT Sodium 140 Potassium 4.3 Chloride 106 Carbon Dioxide 25 Anion Gap 13 BUN 22 H Creatinine 1.17 Estim Creat Clear Calc 52.9 Estimated GFR > 60 Random Glucose 82 D Lactic Acid Calcium 8.3 L Magnesium Total Bilirubin Direct Bilirubin AST ALT Alkaline Phosphatase Troponin I High Sens B-Natriuretic Peptide 2912 H 1234 H Total Protein Albumin Lipase Urine Color Urine Appearance Urine pH Ur Specific [place] Urine Protein Urine Glucose (UA) Urine Ketones Urine Blood Urine Nitrite Ur Leukocyte Esterase Urine Opiates Screen Urine Fentanyl Screen Ur Barbiturates Screen Ur Phencyclidine Scrn Ur Amphetamines Screen U Benzodiazepines Scrn Urine Cocaine Screen U Marijuana (THC) Screen Influenza Type A (PCR) Influenza Type B (PCR) RSV RNA Qual (PCR) SARS-CoV-2 RNA (RT-PCR) Imaging Radiology Impressions: ITS Impressions Chest X-Ray 04/20/22 14:10 FINDINGS/IMPRESSION: Diffuse bilateral interstitial infiltrates, worse at the bases, with probable Lalit B-lines and small left basilar effusion. The findings appear worse compared with 04/04/2020, and suggest pulmonary edema with small left effusion; superimposed pneumonia cannot be confirmed or excluded. The heart size poorly evaluated. The aorta is mildly atherosclerotic. Mental Status Exam Mental Status Exam Patient Appearance: Appropriate Patient Orientation: Person, Place, Time and Situation Level of Consciousness: Awake, Appropriate and Alert Patient Behavior: Appropriate and Cooperative Mood Description: Calm Affect Description: Blunted Judgement: Fair Medications Medications Current Medications Acetaminophen (Acetaminophen 325 Mg Tablet) 650 mg PO Q6H PRN PRN Reason: Pain, Mild (Pain Scale 1-3) Last Admin: 04/21/22 19:36 Dose: 650 mg Aspirin (Aspirin Enteric Coated 81 Mg Tablet.Dr) 81 mg PO DAILY [facility] Last Admin: 04/22/22 09:35 Dose: 81 mg Carvedilol (Carvedilol 3.125 Mg Tablet) 3.125 mg PO BID [facility]; Protocol Last Admin: 04/22/22 09:35 Dose: 3.125 mg Docusate Sodium (Docusate Sodium 100 Mg Capsule) 100 mg PO DAILY PRN PRN Reason: Constipation Furosemide (Furosemide 40 Mg/4 Ml Vial) 40 mg IVPUSH DAILY [facility]; Protocol Last Admin: 04/22/22 09:35 Dose: 40 mg Heparin Sodium (Porcine) (Heparin Sodium,Porcine 5,000 Unit/Ml Vial) 5,000 unit SUBCUT Q12H [facility] Last Admin: 04/22/22 09:34 Dose: 5,000 unit Losartan Potassium (Losartan Potassium 50 Mg Tablet) 50 mg PO DAILY [facility]; Protocol Last Admin: 04/22/22 09:34 Dose: 50 mg Ondansetron HCl (Ondansetron Hcl 4 Mg/2 Ml Vial) 4 mg IVPUSH Q8H PRN PRN Reason: Nausea and Vomiting Pharmacy Consult (Consult Rx Perform Med Rec) 1 each MISCELLANE ONCE PRN PRN Reason: Consult order Sodium Chloride (0.9 % Sodium Chloride Flush 3 Ml Syringe) 3 ml IVFLUSH QSHIFT [facility] Last Admin: 04/22/22 09:35 Dose: 3 ml Tiotropium Levasy (Tiotropium Levasy 18 Mcg Cap.W.Dev) 1 puff INHALE RDAILY [facility] Last Admin: 04/22/22 07:51 Dose: Not Given Allergies Allergies Allergy/AdvReac Type Severity Reaction Status Date / Time No Known Allergies Allergy Verified 04/20/22 13:48 Assessment & Plan Assessment & Plan (1) Cocaine use disorder: Status: Acute Code(s): F14.10 - Cocaine abuse, uncomplicated Assessment and Plan: declines any referrals at this time will follow up in AM to revisit (as he stated he would think about it) phu ramires at time of discahrge I spent ___40___ minutes with the patient and/or on the patient floor today, greater than?50% of which was spent counseling/coordinating care. [facility] Past Medical History Medical History Acute electrocardiogram changes Heart failure with reduced ejection fraction Patient denies significant medical history Family History Family History Other No family history of coronary artery disease Surgical History Surgical History No pertinent past surgical history Social History Social History Household Members: Family Housing: House Do you presently have visiting nurse or other home services: No Alcohol intake: current Alcohol intake frequency: other Alcohol type: beer and hard liquor Patient Tobacco Use Status: Current everyday Tobacco user Cigarette Packs Per Day: 2 Cigarettes Per Day: 40.0 Substance Use Type: Crack/Cocaine and Heroin service: No Current occupational status: unemployed
--- NOTE | 2022-04-22 14:46 | P.PNIM_ITS ---
Subjective Subjective Date of Service: 04/22/22 Interval History: the patient was seen and evaluated this morning Laying in bed, feels improvement still having dyspnea No reported other overnight events. Systemic review: No fever, chills or weakness No chest pain, palpitation dyspnea on exertion, shortness of breathimproving No abdominal pain, nausea or vomiting No urinary symptoms No reported rash Physical Exam Vital Signs: Vital Signs: Last Vital Signs Temp 97.8 F 04/22/22 11:01 Pulse 56 04/22/22 11:01 Resp 16 04/22/22 11:01 BP 118/63 04/22/22 11:01 Pulse Ox 99 04/22/22 11:01 O2 Del Method 04/22/22 11:01 O2 Flow Rate 1 04/22/22 11:01 Oxygen Flow Rate 2 04/20/22 13:49 BMI result Body Mass Index 19.3 Const: Other: Constitutional : Awake, interactive, not in distress Neck : Normal inspection, Supple Cardiovascular : RRR, no JVP, trace lower extremity edema Respiratory : Fair bilateral air entry, basal fine crackles Gastrointestinal: soft, lax, Normal bowel sounds, Non tender Skin : Warm, Dry Neurological : Alert & oriented x3, No focal deficit Objective Data Active Medications Acetaminophen (Acetaminophen 325 Mg Tablet) 650 mg PO Q6H PRN PRN Reason: Pain, Mild (Pain Scale 1-3) Last Admin: 04/21/22 19:36 Dose: 650 mg Documented By: DEBBY Aspirin (Aspirin Enteric Coated 81 Mg Tablet.) 81 mg PO DAILY [facility] Last Admin: 04/22/22 09:35 Dose: 81 mg Documented By: DARIA Carvedilol (Carvedilol 3.125 Mg Tablet) 3.125 mg PO BID [facility]; Protocol Last Admin: 04/22/22 09:35 Dose: 3.125 mg Documented By: DARIA Docusate Sodium (Docusate Sodium 100 Mg Capsule) 100 mg PO DAILY PRN PRN Reason: Constipation Furosemide (Furosemide 40 Mg/4 Ml Vial) 40 mg IVPUSH DAILY [facility]; Protocol Last Admin: 04/22/22 09:35 Dose: 40 mg Documented By: DARIA Heparin Sodium (Porcine) (Heparin Sodium,Porcine 5,000 Unit/Ml Vial) 5,000 unit SUBCUT Q12H [facility] Last Admin: 04/22/22 09:34 Dose: 5,000 unit Documented By: DARIA Losartan Potassium (Losartan Potassium 50 Mg Tablet) 50 mg PO DAILY [facility]; Protocol Last Admin: 04/22/22 09:34 Dose: 50 mg Documented By: DARIA Ondansetron HCl (Ondansetron Hcl 4 Mg/2 Ml Vial) 4 mg IVPUSH Q8H PRN PRN Reason: Nausea and Vomiting Pharmacy Consult (Consult Rx Perform Med Rec) 1 each MISCELLANE ONCE PRN PRN Reason: Consult order Sodium Chloride (0.9 % Sodium Chloride Flush 3 Ml Syringe) 3 ml IVFLUSH QSHIFT [facility] Last Admin: 04/22/22 09:35 Dose: 3 ml Documented By: DARIA Tiotropium [place] (Tiotropium [place] 18 Mcg Cap.W.Dev) 1 puff INHALE RDAILY [facility] Last Admin: 04/22/22 07:51 Dose: Not Given Documented By: MIREYA Non-Admin Reason: Patient Asleep Labs CBC & Chem 7: 04/21/22 06:35 04/22/22 05:48 Labs: Laboratory Results - last 24 hr 04/22/22 04/22/22 05:48 05:48 Anion Gap 13 Estim Creat Clear Calc 52.9 Estimated GFR > 60 Random Glucose 82 D Calcium 8.3 L B-Natriuretic Peptide 1234 H Microbiology Microbiology Results: Microbiology 04/20/22 15:25 Blood Culture - Preliminary Blood - Venous No growth after 24 hours. 04/20/22 15:25 Blood Culture - Preliminary Blood - Venous No growth after 24 hours. Assessment and Plan (1) Acute respiratory failure with hypoxia: Status: Acute (2) Acute exacerbation of CHF (congestive heart failure): Status: Acute Plan 67-year-old male with past medical history of CHF with reduced ejection fraction, cocaine abuse, presents to the hospital with complaints of shortness of breath # acute hypoxic respiratory failure secondary to systolic CHF exacerbation CXR showed bilateral infiltrate concerning for pulmonary edema Continue with Lasix Wean down oxygen as tolerated # acute systolic CHF exacerbation with CMP elevated BNP, report being noncompliant with Lasix Continue Lasix strict I&O, low-sodium diet, daily weight pending repeat echocardiogram last echo from 2019 showed an ejection fraction of 15-20% Cardiology input appreciated, consider change Lasix to p.o., change lisinopril to losartan, consider Entresto as outpatient # cocaine abuse Explained to him the need to stop Get Addiction team evaluation # Underwight BMI 19.3 add supplements to diet DVT prophylaxis Heparin subQ Given patient's acute hypoxic respiratory failure requiring oxygen secondary to CHF exacerbation requiring Lasix pending repeat ECHO patient will require overnight inpatient hospital stay for further management Quality Stroke Does the patient have a stroke diagnosis?: No VTE Prior VTE?: No VTE Risk Level:: Medical - moderate - high VTE Device Contraindication: Treatment Not Indicated VTE Drug Contraindication: N/A - Med Ordered
[2022-04-22 15:59] VITALS: BP 111/57; PULSE 67; RESP 16; TEMP 36.3; O2SAT 96
[2022-04-22 19:23] VITALS: BP 122/64; PULSE 66; RESP 17; TEMP 37.3; O2SAT 94
[2022-04-22 23:34] VITALS: BP 120/71; PULSE 57; RESP 18; TEMP 36.5; O2SAT 98
[2022-04-23 03:56] VITALS: BP 105/59; PULSE 67; RESP 20; TEMP 37.4; O2SAT 99
[2022-04-23 06:20] LABS: Anion Gap 12 (12-20); Blood Urea Nitrogen 25 mg/dL (9-16); Calcium 8.6 mg/dL (8.4-10.2); Carbon Dioxide 30 mmol/L (22-29); Chloride 103 mmol/L (96-108); Creatinine Clr Calc Pharmacy 52.9; Estimated Glomerular Filt Rate > 60; Glucose Random 87 mg/dL (60-115); Potassium 3.9 mmol/L (3.3-5.1); Sodium 141 mmol/L (135-145)
[2022-04-23 06:49] LABS: B Type Natriuretic Peptide 1360 pg/mL (<100)
[2022-04-23 07:35] VITALS: BP 148/83; PULSE 82; RESP 12; TEMP 37; O2SAT 98
[2022-04-23] MEDS: carvediloL 3.125 MG TABLET PO (09:20)
[2022-04-23] MEDS: Furosemide 40 MG TABLET PO (09:20)
[2022-04-23] MEDS: Aspirin Enteric Coated 81 MG TABLET.DR PO (09:20)
[2022-04-23] MEDS: Losartan Potassium 50 MG TABLET PO (09:20)
[2022-04-23] MEDS: 0.9 % Sodium Chloride Flush 3 ML SYRINGE IVFLUSH (09:20)
[2022-04-23] MEDS: Heparin Sodium,Porcine 5,000 UNIT/ML VIAL 5000 UNIT SUBCUT (09:20)
--- NOTE | 2022-04-23 10:40 | PM.PNCARD ---
Subjective Subjective Date of Service: 04/23/22 Interval history: Patient seen examined at bedside. Patient was seen with a tool planer set up operator. Denies any symptoms. Echocardiography report reviewed and discussed with patient in detail. Physical Exam Vital Signs: Last Vital Signs Temp 98.6 F 04/23/22 07:35 Pulse 82 04/23/22 07:35 Resp 12 04/23/22 07:35 BP 148/83 H 04/23/22 07:35 Pulse Ox 98 04/23/22 07:35 O2 Del Method 04/23/22 07:35 O2 Flow Rate 1 04/22/22 11:01 Oxygen Flow Rate 2 04/20/22 13:49 BMI result Body Mass Index 19.3 GENERAL APPEARANCE: in no acute distress. NECK: no carotid bruit, no significant jugular venous distention. SKIN: no suspicious lesions, warm and dry. HEART: no murmurs, regular rate and rhythm. LUNGS: clear to auscultation bilaterally. ABDOMEN: soft, nontender. EXTREMITIES: no edema. PERIPHERAL PULSES: equal. NEUROLOGIC: No gross deficits, AAO X 3 Objective Labs and Meds Result diagrams: 04/21/22 06:35 04/23/22 05:40 Lab results: Laboratory Results - last 24 hr 04/23/22 04/23/22 05:40 05:40 Sodium 141 Potassium 3.9 Chloride 103 Carbon Dioxide 30 H Anion Gap 12 BUN 25 H Creatinine 1.17 Estim Creat Clear Calc 52.9 Estimated GFR > 60 Random Glucose 87 Calcium 8.6 B-Natriuretic Peptide 1360 H Progress Note: A&P Assessment and plan (1) Cocaine use disorder: Status: Acute (2) Cardiomyopathy: Status: Acute (3) Congestive heart failure: Status: Acute Plan 67-year-old gentleman with known history of cardiomyopathy with ejection fraction of 15-20% diagnosed in 2020 when he presented with cocaine abuse and shortness of breath. He was started on guideline directed medical therapy but never followed up with us. He is now presenting again with heart failure episode. His cardiomyopathy has worsened and his EF is less than 10% with dilated LV. Unfortunately continues to use cocaine. We have optimized him with medications as best as we can. He should go home with 40 mg of Lasix, carvedilol 3.125 mg twice a day and we will add spironolactone 25 mg once a day. I have explained to the patient using tool planer set up operator that he has severe cardiomyopathy at this stage and this is due to cocaine abuse and if he continues to use cocaine then his condition may worsen and he will potentially from this issue. He has to take medications regularly and abstain from cocaine otherwise unfortunately he will not make any progress toward recovery. Patient understood and said he will try his best. We will see him back in the office. Thank you for allowing me to participate in the care of your patient. Please feel free to contact me if you have any questions. Time Spent With Patient Time: Total time spent is greater than 50% in coordination of care (as documented) at patient's floor/unit and/or counseling patient: Progress Note: Quality Stroke Does the patient have a stroke diagnosis?: No Procedures Date of Service Date of Service: 04/23/22
[2022-04-23 11:06] VITALS: BP 118/63; PULSE 63; RESP 16; TEMP 36.7; O2SAT 96
--- NOTE | 2022-04-23 12:05 | PM.DS ---
DS: Providers Provider Date of Service: 04/23/22 Date of admission: 04/20/22 19:57 Primary care physician: Unknown Physician Consults: 04/20/22 19:56 Consult to Cardiology Routine Consulting Provider: Donell Lopez Reason for consultation: CHF Has provider been notified: No 04/21/22 13:57 Addiction Medicine Routine Consulting Provider: Addiction Covering Reason for consultation: cocaine abuse, cardiomyopathy w heart failure, for eval and rec. DS: Diagnosis Discharge Diagnosis (1) Cocaine use disorder: Status: Acute DS: Summary Hospital Course Hospital Course: from initial hpi: his is a 67-year-old male with past medical history CHF with reduced ejection fraction, COPD, presents to the hospital with hypoxia.? Patient's daughter reports that he has not had Lasix for 2 months, although patient himself reports that he never was on that pale.? Reports orthopnea, PND, and lower extremity edema for the past few days, dyspnea on exertion, no cough or sputum production.? Denies any chest pain, no palpitations, no abdominal pain nausea or vomiting, no diarrhea or constipation and no urinary symptoms.? Patient reports using cocaine and crack cocaine. On arrival of EMS patient was found to be hypoxic with an O2 level in the high 80s, Labs are significant for WBC count of 2.6, hemoglobin of 15.7, hematocrit 47.8, BNP of 3699, troponin of 83.5 that decreased to 54.2, UA negative, UDS positive for cocaine, Influenza, RSV, and COVID-19 negative Chest x-ray showed diffuse bilateral interstitial infiltrates worse at bases concerning for pulmonary edema hospital course: Patient was admitted for acute hypoxic respiratory failure secondary to acute on chronic systolic CHF in the setting of cocaine use. Was given IV Lasix and diuresed well and was able to be weaned off oxygen. Echocardiogram showed decreased ejection fraction with an EF now below 10%. On discharge patient's Lasix was increased to 40 mg daily, he was started on Aldactone 25 mg. Patient has been educated on cocaine use and informed that continued use will result in high probability of mortality in the near future. Patient noted to be underweight was given supplements. Patient COPD remained stable. He is feeling better will be discharged home. Time Spent with Patient Time attestation: Total time spent providing and/or coordinating discharge services: Discharge coordination time: Greater than 30 minutes Quality: Safe Use of Opioids Does Pt have an Active Cancer Diagnosis on the Problem List?: No Quality: Stroke Does the patient have a stroke diagnosis?: No Physical Exam Vital Signs: Vital Signs: Last Vital Signs Temp 98.1 F 04/23/22 11:06 Pulse 63 04/23/22 11:06 Resp 16 04/23/22 11:06 BP 118/63 04/23/22 11:06 Pulse Ox 96 04/23/22 11:06 O2 Del Method 04/23/22 11:06 O2 Flow Rate 1 04/22/22 11:01 Oxygen Flow Rate 2 04/20/22 13:49 BMI result Body Mass Index 19.3 General: AO X 3, no acute distress Resp: CTA bilateral, no accessory muscles used CVS: S1,S2,RRR GI: soft, non tender, non distended Neuro: motor grossly intact, alert Psych: appropriate affect, appropriate insight DS: Data Data Completed and Pending Labs on day of discharge: Laboratory Results - last 24 hr 04/23/22 04/23/22 05:40 05:40 Sodium 141 Potassium 3.9 Chloride 103 Carbon Dioxide 30 H Anion Gap 12 BUN 25 H Creatinine 1.17 Estim Creat Clear Calc 52.9 Estimated GFR > 60 Random Glucose 87 Calcium 8.6 B-Natriuretic Peptide 1360 H Preliminary micro results at discharge 04/20/22 15:25 Blood Culture - Preliminary Blood - Venous No growth after 48 hours. 04/20/22 15:25 Blood Culture - Preliminary Blood - Venous No growth after 48 hours. Discharge Plan Discharge Anticipated Discharge Date/Time: 04/23/22 12:01 Patient Disposition: Home, Self-Care Discharge Diagnosis: chf Referrals: Physician,Unknown J [Primary Care Provider] - 1 Week Discharge Medications: New spironolactone [Aldactone] 25 mg tablet 25 mg PO DAILY Qty: 30 0RF Continued carvedilol 3.125 mg Tablet 3.125 mg PO BID Qty: 60 0RF Protocol: Hold for SBP/HR < HOLD for SBP < : 90 HOLD for HR < : 60 lisinopril 10 mg Tablet 10 mg PO DAILY Qty: 30 0RF Protocol: Hold for SBP< HOLD for SBP < : 90 aspirin [Ecotrin Low Strength] 81 mg tablet,delayed release (DR/EC) 81 mg PO DAILY Qty: 30 0RF Atrovent HFA 17 mcg/actuation HFA aerosol inhaler 2 puff INHALATION TID Changed furosemide 20 mg Tablet 40 mg PO DAILY Qty: 60 0RF Protocol: Hold for SBP< HOLD for SBP < : 90 Discharge Orders: Discharge Order (Routine); Ordered 04/23/22 Ordered By: Aldo De Jesus Diet: Advance to usual diet Activity on Discharge: As tolerated Stand Alone Forms: Patient Portal Discharge page Care Plan Goals: recovery Health Concerns: chf, cocaine use Plan of Treatment: stop using cocaine, continuing to use cocaine will lead to , lasix increased to 40mg daily, started on aldactone, follow up cardiology Assessment: see above
--- NOTE | 2022-04-23 12:18 | MHC.CM.PN ---
Patient has been medically cleared for dc to home today, self care. Last IMM addressed on 04/21/2022.
== END 2022-04-23 12:46 | disposition home or self-care (01) | DRG 292 ==
LOC: HO.ED 15:55 → HO.EDOVER 20:09 → HO.IMC 04-21 14:48
PROVIDERS: Nurse Practitioner Family; Physician Assistant Medical; Student in an Organized Health Care Education/Training Program; Admitting Provider Internal Medicine; Emergency Provider Emergency Medicine; Visit Provider Internal Medicine
DX: I50.23 Acute on chronic systolic (congestive) heart failure (principal); I42.7 Cardiomyopathy due to drug and external agent; Z68.1 Body mass index [BMI] 19.9 or less, adult; J44.9 Chronic obstructive pulmonary disease, unspecified; R63.6 Underweight; F17.210 Nicotine dependence, cigarettes, uncomplicated; F14.10 Cocaine abuse, uncomplicated; Z20.822 Contact with and (suspected) exposure to COVID-19; Z71.6 Tobacco abuse counseling; Z79.82 Long term (current) use of aspirin; Z79.899 Other long term (current) drug therapy
CPT/HCPCS: 0241U; 36415; 71045; 80048; 80076; 80307; 81003; 83605; 83690; 83735; 83880; 84484; 85025; 85610; 85730; 87040; 93005; 93306; 94640; 99285; J0696; J1940; J2405; J2930; Q9957

== ENCOUNTER → 2022-06-05 14:18 | Outpatient (BNVA) | payer OTHER, MEDICARE, SELFPAY | PROVIDERS: Visit Provider Nurse Practitioner Family | DX: I42.9 Cardiomyopathy, unspecified (principal); I50.23 Acute on chronic systolic (congestive) heart failure; J96.91 Respiratory failure, unspecified with hypoxia; F11.20 Opioid dependence, uncomplicated; F14.20 Cocaine dependence, uncomplicated; Z09 Encounter for follow-up examination after completed treatment for conditions other than malignant neoplasm | CPT/HCPCS: 99212 ==

== ENCOUNTER 2023-01-12 13:42 | Outpatient (AMB) | payer OTHER, SELFPAY ==
[2023-01-12 14:03] VITALS: BP 130/70; PULSE 71; BMI 18.1
--- NOTE | 2023-01-12 14:03 | A.OFFVIS_ITS ---
Intake Vital Signs 01/12/23 14:03 Height 5 ft 11 in Weight 130 lb 1.164 oz BMI 18.1 BP 130/70 Blood Pressure Location Lt brachial Position Sitting Pulse 71 Intake Visit Reasons: 4 MON FUP KM PT Intake Note: 4 month fup KM Pt felling some s/b Invasive Manager Required: No Hot Die Press Feeder: Hot Die Press Feeder Present Accompanied by: Daughter Allergies No Known Allergies Allergy (Verified 01/12/23 14:11) Medication List - Last Reconciled 01/12/23 by Lin Marley NP-C aspirin (Ecotrin Low Strength) 81 mg PO DAILY carvedilol 3.125 mg See Protocol PO BID furosemide 40 mg PO DAILY ipratropium bromide 17 mcg/actuation (Atrovent HFA) 2 puffs inhalation TID lisinopril 10 mg See Protocol PO DAILY spironolactone (Aldactone) 25 mg PO DAILY HPI 4 MON FUP KM PT HPI Details Bart is a 68 yo male with PMH of substance abuse, cardiomyopathy, CHF who was admitted [place] [facility] [place] with hypoxic respiratory failure and decompensated HF. His EF was found to be less than 10%. He was diuresed and Home lasix increased, aldactone added. On last visit here 05/2022 he was strongly encouraged to stop cocaine use. Today he presents with his daughter who assists with translation at their request. 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 He has generally been doing well since his last visit. He does only light physical activity with walking short distances. He is having some increasing shortness of breath with activity that his daughter does notice. He says he does get some pains in his chest at times but is not able to elaborate. Unable to truly assess if this is exertional or not. No chest discomfort at present. No coughing or leg edema. No heart palpitations, dizziness, fainting. Daughter assists him with his medications. He continues to use cocaine daily but not in the last 2 days because he ran out. He initially says he plans to use it as soon as he gets some more. [facility] Medical History Acute electrocardiogram changes Heart failure with reduced ejection fraction Patient denies significant medical history Surgical History No pertinent past surgical history Family History Other No family history of coronary artery disease Social History Household Members: Family Housing: House Do you presently have visiting nurse or other home services: No Alcohol intake: current Alcohol intake frequency: other Alcohol type: beer and hard liquor Patient Tobacco Use Status: Current everyday Tobacco user Cigarette Packs Per Day: 1 Cigarettes Per Day: 20 Substance Use Type: Crack/Cocaine and Heroin service: No Current occupational status: unemployed Review of Systems Const All systems reviewed & are unremarkable except as noted in HPI and below ENT Reports dizziness Card Reports chest pain (Difficulty describing even with lobster man), Denies chest pain at rest, Denies chest pain with activity, Denies rapid heart rate, Denies pedal edema, Denies edema, Denies leg edema, Denies lightheadedness, Denies palpitations, Denies dyspnea, Reports dyspnea on exertion and Denies orthopnea Resp Denies cough, Denies dyspnea and Reports dyspnea on exertion GI Denies hematochezia and Denies change in stool character Musc Denies abnormal gait, Reports limited range of motion, Reports muscle cramps, Denies muscle weakness, Denies numbness, Denies radiating pain into limb, Denies stiffness and Denies tingling Neuro Denies abnormal gait, Reports dizziness, Denies numbness and Denies tingling Endo Denies palpitations Physical Exam Vital Signs: Last Vital Signs Pulse 71 01/12/23 14:03 BP 130/70 01/12/23 14:03 BMI result Body Mass Index 18.1 Const General: cooperative and no acute distress Orientation/consciousness: patient oriented x3 Neck Neck: Yes normal visual inspection Resp Effort & Inspection: normal respiratory effort Auscultation: clear to auscultation bilaterally, no rales, no rhonchi and no wheezes Cardio Rate: regular rate Rhythm: regular rhythm Heart sounds: S1 normal heart sound present, S2 normal heart sound present, no murmurs and no rubs GI Inspection: Yes normal to inspection Neuro General: patient oriented x3 Extrem General: Yes normal to inspection and No no pedal edema Psych Appearance: grossly normal Mental Status: mental status grossly normal Speech and movement: Normal speech and movement present Office Procedures EKG Details: Today, read by me, sinus rhythm, right atrial enlargement, right bundle branch block, T-wave abnormality, suggesting inferior lateral ischemia, rate 68, QTC 440 milliseconds. Inferior T-wave inversions and more pronounced lateral T-wave inversion compared to EKG 04/20/2022 [id number], Complete Assessment & Plan Assessment & Plan (1) Cardiomyopathy: Code(s): I42.9 - Cardiomyopathy, unspecified Plan: Hx of chronic substance/ cocaine abuse. Known Cardiomyopathy with EF 15-20% in 2019. Last April he was admitted to [facility] with hypoxic resp failure, acute on chronic systolic HF. Echo showed EF <10%, severe decrease in RVSF. He was d iuresed and started on Lasix 40mg daily. Aldactone was added. He was continued on Carvedilol and Lisinopril. Labs at discharge shows Cr 1.17, K 3.9. Today he reports breathing comfortable at rest, but he is having increased shortness of breath with activity. On exam he does not look fluid overloaded on exam. s/s HF reviewed with him. He does report ongoing cocaine use. Spent 20 minutes going over the need for complete cocaine cessation as this continues to affect his heart function. Patient informed that he is at high risk for recurrent HF, sudden . He and daughter both state understanding. After this discussion patient does state he is willing to try stopping cocaine. Will contact nurse navigator to see what resources are available to help him. Since he is willing to participate in his care will continue current medications, neurohormonal modulation and update echocardiogram. His EKG today does have some new T-wave inversions which could indicate ischemia. He has some reports of chest discomfort however very vague in description. Previously not felt to be a candidate for cardiac catheterization, ICD due to daily cocaine use. Going forward will need to evaluate his progress and adjust cardiac plan of care accordingly. Will review today's EKG with Dr. Luciano once he is available. Will continue current meds. He may take additional dose of Lasix if needed for increased sob, leg swelling. Cardiology follow up 3-4 mo, sooner if needed (2) Congestive heart failure: Code(s): I50.9 - Heart failure, unspecified Plan: As above (3) Cocaine use disorder: Code(s): F14.10 - Cocaine abuse, uncomplicated Plan: As above Orders: Orders CA echo transthoracic complete Today I42.9 - Cardiomyopathy, unspecified, R94.31 - Abnormal electrocardiogram [ECG] [EKG] Coding Level of Care Code Est Pt Level 4 (06493) Diagnoses Cardiomyopathy I42.9 Congestive heart failure I50.9 Cocaine use disorder F14.10 CPT Codes EKG - CPT: 27287-[id number], Complete ([id number]) Time Spent (min) 35 Comment Chart review, documentation, interview, assessment, education
== END 2023-01-12 14:51 | disposition home or self-care (01) ==
PROVIDERS: Visit Provider Nurse Practitioner Family
DX: I42.9 Cardiomyopathy, unspecified (principal); I50.9 Heart failure, unspecified; F14.10 Cocaine abuse, uncomplicated
CPT/HCPCS: 93010; 99214

== ENCOUNTER → 2023-01-12 13:42 | Outpatient (BNVA) | payer OTHER, SELFPAY | PROVIDERS: Visit Provider Nurse Practitioner Family | DX: I42.9 Cardiomyopathy, unspecified (principal); I50.9 Heart failure, unspecified; F14.10 Cocaine abuse, uncomplicated | CPT/HCPCS: 93005; 99212 ==

== ENCOUNTER 2023-01-19 11:01 | Outpatient (AMB) | payer OTHER, SELFPAY ==
--- NOTE | 2023-01-19 11:03 | A.OFFVIS_ITS ---
Intake Vital Signs 01/19/23 11:09 BP 118/68 Blood Pressure Location Lt radial Position Sitting Pulse 67 Pulse Source Pulse Oximeter Pulse Oximetry (%) 98 Oxygen Delivery Method Room Air Intake Visit Reasons: MAT Intake Intake Note: The patient presents for a mat intake Equipment Associate Required: No Allergies No Known Allergies Allergy (Verified 01/19/23 11:03) Do you need a note to return to daycare/school/sports/work: No HPI MAT Intake HPI Details Patient presents for JOANA intake and evalutaion History of OUD--has not used in over a year Has been buying Suboxone on the street and taking approx 8mg BID not daily Several overdoses--most recent overdose about a year ago Cocaine use daily 5-6 dimes Injecting Since 15 years old Used to have problems with drinking, however stopped many years ago. Multiple admissions to addiction treatment several years ago Health history reviewed [place] [facility] [facility] Medical History Acute electrocardiogram changes Heart failure with reduced ejection fraction Patient denies significant medical history Surgical History No pertinent past surgical history Family History Other No family history of coronary artery disease Social History Household Members: Family Housing: House Do you presently have visiting nurse or other home services: No Alcohol intake: current Alcohol intake frequency: other Alcohol type: beer and hard liquor Patient Tobacco Use Status: Current everyday Tobacco user Cigarette Packs Per Day: 1 Cigarettes Per Day: 20 Substance Use Type: Crack/Cocaine and Heroin service: No Current occupational status: unemployed Review of Systems Const Reports as per HPI and Reports no additional complaints Physical Exam Vital Signs: Last Vital Signs Pulse 67 01/19/23 11:09 BP 118/68 01/19/23 11:09 Pulse Ox 98 01/19/23 11:09 Oxygen Delivery Method Room Air 01/19/23 11:09 Const General: cooperative and no acute distress Nutritional Appearance: thin Orientation/consciousness: patient oriented x3 Skin Other: various healed injection sites bilateral arms. Right upper arm current injection site--no signs of infection noted Neuro General: patient oriented x3 Psych Appearance: grossly normal and well kempt Speech and movement: Clear speech present Affect: normal affect Attitude: cooperative Thought process: Normal thought process present Thought content: Normal thought content present Insight: Fair insight present (Psych) Judgement: Fair judgement present (Psych) Results AMB 14 Panel Urine Drug Screen Urine Marijuana (THC) Negative Last Edit by Cassie Craven CMA on 01/19/23 13:21 Urine Cocaine Positive Last Edit by Cassie Craven CMA on 01/19/23 13:21 Urine Morphine Negative Last Edit by Cassie Craven CMA on 01/19/23 13:21 Urine Methamphetamine Negative Last Edit by Cassie Craven CMA on 01/19/23 13:21 Urine Amphetamine Negative Last Edit by Cassie Craven CMA on 01/19/23 13:2 1 Urine Benzodiazepine Negative Last Edit by Cassie Craven CMA on 01/19/23 13:21 Urine Barbiturates Negative Last Edit by Cassie Craven CMA on 01/19/23 13: 21 Urine Methadone Negative Last Edit by Cassie Craven CMA on 01/19/23 13:21 Urine Buprenorphine Negative Last Edit by Cassie Craven CMA on 01/19/23 13 :21 Urine Tricyclic Antidepressant Negative Last Edit by Cassie Craven CMA on 01/19/23 13:21 Urine MDMA Negative Last Edit by Cassie Craven CMA on 01/19/23 13:21 Urine Oxycodone Negative Last Edit by Cassie Craven CMA on 01/19/23 13:21 Urine Phencyclidine Negative Last Edit by Cassie Craven CMA on 01/19/23 13 :21 Urine Propoxyphene Negative Last Edit by Cassie Craven CMA on 01/19/23 13: 21 Results Reviewed Results Reviewed: Laboratory Last Values POC Urine Buprenorphine Negative 01/19/23 13:20 POC Urine Morphine Negative 01/19/23 13:20 POC Urine Oxycodone Negative 01/19/23 13:20 POC Urine Methadone Negative 01/19/23 13:20 POC Urine Propoxyphene Negative 01/19/23 13:20 POC Urine Barbiturates Negative 01/19/23 13:20 POC U Tricyclic Antidpr Negative 01/19/23 13:20 POC Urine PCP Negative 01/19/23 13:20 POC Ur Amphetamines Negative 01/19/23 13:20 POC Ur Methamphetamine Negative 01/19/23 13:20 POC Urine MDMA Negative 01/19/23 13:20 POC Ur Benzodiazepine Negative 01/19/23 13:20 POC Urine Cocaine Positive 01/19/23 13:20 POC Ur Marijuana (THC) Negative 01/19/23 13:20 Assessment & Plan Assessment & Plan (1) Opioid use disorder: Code(s): F11.90 - Opioid use, unspecified, uncomplicated Plan: * suboxone 8mg QD ordered * overdose prevention discussion * narcan ordered (2) Cocaine use disorder: Code(s): F14.10 - Cocaine abuse, uncomplicated Plan: * reviewed topomax as an option to reduce cocaine use and possible manage cravings * risk reduction discussion, including reducing cocaine use by one bag (4 bags daily) over the next week * follow up one week Orders: Orders AMB 14 Panel Urine Drug Screen 01/19/23 Z51.81 - Encounter for therapeutic drug level monitoring Medications: New buprenorphine-naloxone 8-2 mg (Suboxone) 1 film sublingual DAILY 8 ea 0RF topiramate 25 mg PO DAILY 14 caps 0RF naloxone 4 mg/actuation (Narcan) spray 1 dose into ONE nostril; alternate nostrils w each dose until help arrives 1 spray intranasal Q2M 2 ea 1RF Coding Level of Care Code New Pt Level 4 (28313) Diagnoses Opioid use disorder F11.90 Cocaine use disorder F14.10
[2023-01-19 11:09] VITALS: BP 118/68; PULSE 67; O2SAT 98
== END 2023-01-19 11:49 | disposition home or self-care (01) ==
LOC: HO.HCC 11:01
PROVIDERS: PCP Internal Medicine; Visit Provider Nurse Practitioner Psychiatric/Mental Health
DX: F11.90 Opioid use, unspecified, uncomplicated (principal); F14.10 Cocaine abuse, uncomplicated
CPT/HCPCS: 99214

== ENCOUNTER → 2023-01-19 11:01 | Outpatient (BNVA) | payer OTHER, SELFPAY | PROVIDERS: PCP Internal Medicine; Visit Provider Nurse Practitioner Psychiatric/Mental Health | DX: F11.20 Opioid dependence, uncomplicated (principal); F14.10 Cocaine abuse, uncomplicated | CPT/HCPCS: 80305; 99212 ==

== ENCOUNTER 2023-01-27 13:03 | Outpatient (AMB) | payer OTHER, SELFPAY ==
--- NOTE | 2023-01-27 13:04 | A.OFFVIS_ITS ---
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 Patient minimizing how he is feeling, daughter reporting he is not eating very much and only fluids he has are soda Patient denies SOB, dizziness, or fatigue. Declines request to be seen in ED or urgent care. This entry writer advised daughter if he continued like his current presentation or worsened, to bring him to ED. Patient able to ambulate independently, however moving slowly. In terms of JOANA--he reports he has decreased cocaine use by one bag daily and is tolerating suboxone. [facility] Medical History Acute electrocardiogram changes Heart failure with reduced ejection fraction Patient denies significant medical history Surgical History No pertinent past surgical history Family History Other No family history of coronary artery disease Social History Household Members: Family Housing: House Do you presently have visiting nurse or other home services: No Alcohol intake: current Alcohol intake frequency: other Alcohol type: beer and hard liquor Patient Tobacco Use Status: Current everyday Tobacco user Cigarette Packs Per Day: 1 Cigarettes Per Day: 20 Substance Use Type: Crack/Cocaine and Heroin service: No Current occupational status: unemployed Review of Systems Const Reports as per HPI and Reports no additional complaints Physical Exam Vital Signs: Last Vital Signs Pulse 57 01/27/23 13:09 BP 116/78 01/27/23 13:09 Pulse Ox 95 01/27/23 13:09 Oxygen Delivery Method Room Air 01/27/23 13:09 Const General: ill appearing, lethargic and tired appearing Orientation/consciousness: lethargic Psych Appearance: well kempt Speech and movement: Clear speech present and Slowed movement present (Neuro) Assessment & Plan Assessment & Plan (1) Opioid use disorder: Code(s): F11.90 - Opioid use, unspecified, uncomplicated Plan: * continue suboxone at current dose * follow up in 3-4 weeks * encouraged to be seen in ED or call provider regarding illness if sx do not improve (2) Cocaine use disorder: Code(s): F14.10 - Cocaine abuse, uncomplicated Medications: Refilled buprenorphine-naloxone 8-2 mg (Suboxone) 1 film sublingual DAILY 20 ea 0RF Coding Level of Care Code Est Pt Level 3 (27966) Diagnoses Opioid use disorder F11.90 Cocaine use disorder F14.10
[2023-01-27 13:09] VITALS: BP 116/78; PULSE 57; O2SAT 95
== END 2023-01-27 13:33 | disposition home or self-care (01) ==
LOC: HO.HCC 13:03
PROVIDERS: PCP Internal Medicine; Visit Provider Nurse Practitioner Psychiatric/Mental Health
DX: F11.90 Opioid use, unspecified, uncomplicated (principal); F14.10 Cocaine abuse, uncomplicated
CPT/HCPCS: 99213

== ENCOUNTER → 2023-01-27 13:03 | Outpatient (BNVA) | payer OTHER, SELFPAY | PROVIDERS: PCP Internal Medicine; Visit Provider Nurse Practitioner Psychiatric/Mental Health | DX: F11.20 Opioid dependence, uncomplicated (principal); F14.10 Cocaine abuse, uncomplicated | CPT/HCPCS: 99212 ==

== ENCOUNTER → 2023-02-09 14:52 | Outpatient (REF) | payer OTHER, SELFPAY ==
--- NOTE | ~2023-02-09 | XR_ITS ---
EXAMINATION: XR LUMBAR SPINE XR HAND, RIGHT XR HAND, LEFT CLINICAL INFORMATION: Bilateral hand pain everywhere, unable to remove jewelry. Back pain. COMPARISON: Right hand 07/15/2006. TECHNIQUE: 3 views right hand. 3 views left hand. 3 views lumbar spine. FINDINGS: LUMBAR SPINE: Rightward curvature of the lumbar spine. The bones are diffusely demineralized. Atherosclerotic aortoiliac calcifications. Facet arthritis in the lower lumbar spine. Mild grade 1 anterolisthesis of L4 on L5. Mild multilevel lumbar spondylosis with loss of disc space height at L4-L5. LEFT HAND: Severe degenerative changes 1st metacarpophalangeal joint with obliteration of the joint space, hypertrophic change and subluxation. Patient unable to remove ring from 4th digit. Mild degenerative changes 1st metacarpophalangeal joint. RIGHT HAND: Marked degenerative changes 1st carpometacarpal joint with joint space narrowing, hypertrophic change and subluxation. Advanced degenerative changes 1st metacarpophalangeal joint with subluxation. Degenerative changes with sclerosis and subtle cystic lucencies between the carpal bones most notable in the lunate. XR/XR hand RT min 3V IMPRESSION: 1. Mild multilevel lumbar spondylosis with grade 1 anterolisthesis of L4 on L5. 2. Severe degenerative changes bilateral 1st carpometacarpal joints. 3. Advanced degenerative changes as detailed above in the right 1st metacarpophalangeal joint and carpals. 4. No displaced fracture. RECOMMENDATION: Recommend follow up imaging in 10-14 days if fracture is suspected.
--- NOTE | ~2023-02-09 | XR_ITS ---
EXAMINATION: XR LUMBAR SPINE XR HAND, RIGHT XR HAND, LEFT CLINICAL INFORMATION: Bilateral hand pain everywhere, unable to remove jewelry. Back pain. COMPARISON: Right hand 07/15/2006. TECHNIQUE: 3 views right hand. 3 views left hand. 3 views lumbar spine. FINDINGS: LUMBAR SPINE: Rightward curvature of the lumbar spine. The bones are diffusely demineralized. Atherosclerotic aortoiliac calcifications. Facet arthritis in the lower lumbar spine. Mild grade 1 anterolisthesis of L4 on L5. Mild multilevel lumbar spondylosis with loss of disc space height at L4-L5. LEFT HAND: Severe degenerative changes 1st metacarpophalangeal joint with obliteration of the joint space, hypertrophic change and subluxation. Patient unable to remove ring from 4th digit. Mild degenerative changes 1st metacarpophalangeal joint. RIGHT HAND: Marked degenerative changes 1st carpometacarpal joint with joint space narrowing, hypertrophic change and subluxation. Advanced degenerative changes 1st metacarpophalangeal joint with subluxation. Degenerative changes with sclerosis and subtle cystic lucencies between the carpal bones most notable in the lunate. XR/XR hand LT min 3V IMPRESSION: 1. Mild multilevel lumbar spondylosis with grade 1 anterolisthesis of L4 on L5. 2. Severe degenerative changes bilateral 1st carpometacarpal joints. 3. Advanced degenerative changes as detailed above in the right 1st metacarpophalangeal joint and carpals. 4. No displaced fracture. RECOMMENDATION: Recommend follow up imaging in 10-14 days if fracture is suspected.
--- NOTE | ~2023-02-09 | XR_ITS ---
EXAMINATION: XR LUMBAR SPINE XR HAND, RIGHT XR HAND, LEFT CLINICAL INFORMATION: Bilateral hand pain everywhere, unable to remove jewelry. Back pain. COMPARISON: Right hand 07/15/2006. TECHNIQUE: 3 views right hand. 3 views left hand. 3 views lumbar spine. FINDINGS: LUMBAR SPINE: Rightward curvature of the lumbar spine. The bones are diffusely demineralized. Atherosclerotic aortoiliac calcifications. Facet arthritis in the lower lumbar spine. Mild grade 1 anterolisthesis of L4 on L5. Mild multilevel lumbar spondylosis with loss of disc space height at L4-L5. LEFT HAND: Severe degenerative changes 1st metacarpophalangeal joint with obliteration of the joint space, hypertrophic change and subluxation. Patient unable to remove ring from 4th digit. Mild degenerative changes 1st metacarpophalangeal joint. RIGHT HAND: Marked degenerative changes 1st carpometacarpal joint with joint space narrowing, hypertrophic change and subluxation. Advanced degenerative changes 1st metacarpophalangeal joint with subluxation. Degenerative changes with sclerosis and subtle cystic lucencies between the carpal bones most notable in the lunate. XR/XR lumbar spine 2-3V IMPRESSION: 1. Mild multilevel lumbar spondylosis with grade 1 anterolisthesis of L4 on L5. 2. Severe degenerative changes bilateral 1st carpometacarpal joints. 3. Advanced degenerative changes as detailed above in the right 1st metacarpophalangeal joint and carpals. 4. No displaced fracture. RECOMMENDATION: Recommend follow up imaging in 10-14 days if fracture is suspected.
[2023-02-09 11:26] LABS: Estimated Average Glucose 103 mg/dL; Hemoglobin A1c % 5.2 % (<6.0)
[2023-02-09 12:05] LABS: Alanine Aminotransferase 10 U/L (0-40); Albumin Level 3.6 g/dL (3.5-5.0); Alkaline Phosphatase 68 U/L (39-117); Anion Gap 10 (12-20); Aspartate Amino Transferase 20 U/L (5-37); Bilirubin Direct 0.3 mg/dL (0.0-0.5); Bilirubin Total 0.8 mg/dL (0.0-1.0); Blood Urea Nitrogen 21 mg/dL (9-16); Calcium 9.3 mg/dL (8.4-10.2); Carbon Dioxide 24 mmol/L (22-29); Chloride 109 mmol/L (96-108); Cholesterol 123 mg/dL (<200); Estimated Glomerular Filt Rate 51; Glucose Random 85 mg/dL (60-115); HDL Cholesterol 32 mg/dL (>40); LDL Cholesterol Calculated 72 mg/dL (<100); Sodium 138 mmol/L (135-145); Total Protein 7.2 g/dL (6.5-8.0); Triglycerides 97 mg/dL (<150)
[2023-02-09 12:32] LABS: Prostate Specific Antigen 0.46 ng/mL (<0.05-4.0)
[2023-02-09 13:35] LABS: Creatinine Urine 147.03 mg/dL; Microalbum/Creatinine Ratio Ur 173.4 ug/mg cr (<30)
--- NOTE | 2023-02-09 15:04 | CA_ITS ---
Transthoracic Echocardiogram Patient (Last, First, Middle): Bart Downey M Gender: Male Date of : 1955 Age: 68 Procedure Date: 02/09/2023 Procedure Type: Transthoracic Echocardiogram Location: OP Height: 180.34 cm Weight: 58.97 kg BSA: 1.76 m2 Heart Rate: 68 bpm BP: 116 / 78 mmHg Nautical Instrument Mechanic: SB Referring MD: Lin Marley REPLANTING MACHINE CREWKeely Symptoms: I42.9 - Cardiomyopathy, unspecified Study Quality: Adequate ECG Rhythm: Sinus Conclusions: - The left ventricular systolic function is severely decreased. The calculated ejection fraction is 29% by biplane method. - There is mild mitral valve regurgitation. Findings Left Ventricle Normal left ventricular cavity size. There is moderately increased left ventricular wall thickness. The left ventricular systolic function is severely decreased. The calculated ejection fraction is 29% by biplane method. There is severe global hypokinesis. Diastolic function is indeterminate on the basis of available data. LV peak GLS -6.9%. Right Ventricle Normal right ventricular cavity size. There is moderately decreased right ventricular systolic function. Atria Both atria are normal in size. Aortic Valve The aortic valve was not well visualized. The aortic valve structure and function is likely normal. There is no aortic valve stenosis. There is no aortic valve regurgitation. Mitral Valve The mitral valve appears normal. There is mild mitral valve regurgitation. There is no mitral valve stenosis. Pulmonic Valve The pulmonic valve is likely normal. Tricuspid Valve Normal tricuspid valve structure. There is trace tricuspid valve regurgitation. There is no evidence of pulmonary hypertension. Great Vessels The asc aorta is normal in size. Venous The inferior vena cava is normal in size and collapses greater than 50% with inspiration. Pericardium/Pleural There is no evidence of pericardial effusion. Prior Study Comparison No significant change compared to prior study dated: 04/22/2022. Measurements 2D Linear Measurements IVSd: 1.21 0.6-0.9/0.6-1.0 cm LVIDd: 5.24 3.9-5.3/4.2-5.9 cm LVIDd Index: 2.98 2.4-3.2/2.2-3.1 cm/m2 LVIDs: 4.59 2.0-3.6 cm LVPWd: 1.30 0.7-1.1 cm LA Diam: 2.90 2.7-3.8/3.0-4.0 cm LAIDs Index: 1.65 1.5-2.3 cm/m2 LV Mass: 334.47 67-162/88-224 g LV Mass Index: 190.04 43-95/49-115 g/m2 LVOT Diam: 2.40 3.0+(-)1.3 cm 2D Systolic Function EF 4C: 25.10 >55% EF 2C: 30.50 >55% EF BiP: 28.70 >55% Mitral Valve MV Pk E: 0.23 MV PK A: 0.69 MV Decel Time: 116.00 E/A: 0.30 E'Medial: 3.70 E/E' Med: 6.20 PHT: 34.00 MVA PHT: 6.47 Decel Gibson: 2.00 MR Vol - PW Dopp: 13.04 MR VTI: 1.63 MR ERO: 8.00 MR Alias Vidal: 0.39 MR RAD: 0.40 Aortic Valve AoV Pk Vidal: 1.10 AoV Pk Grad: 5.00 CHRISTEL: 3.45 LVOT LVOT Pk Vidal: 0.78 LVOT Mn Vidal: 0.51 LVOT VTI: 0.10 LVOT Pk Grad: 2.00 LVOT Mn Grad: 1.00 LVOT Diam: 2.40 LVOT Area: 4.52 Diastolic Function MV Pk E: 0.23 MV Pk A: 0.69 E/A: 0.30 E'Medial: 3.70 E/E' Med: 6.20 Right Ventricle TAPSE (mm): 12.00 TVS' Vidal: 7.00 Tricuspid Valve TR Pk Vidal: 1.70 TR Pk Grad: 12.00 RA Press: 3.00 RVSP: 15.00 Great Vessels Aorta Sinus of Valsalva: 3.60 2.0-3.5 cm Ao Asc: 3.00 2.1-3.4 cm Pulmonary Valve PV Pk Vidal: 0.69 Peak PV Grad: 2.00 Updated in Other Vendor System with Status of Final Donell Lopez MD electronically signed on 02/10/2023 11:47:39 AM with status of Final
[2023-02-10 04:30] LABS: HIV AB/AG Nonreactive (Nonreactive); HIV Num 1 0.05 S/CO (0.00-0.99)
== END ==
LOC: HO.CARD 14:52
PROVIDERS: PCP Nurse Practitioner Primary Care; Visit Provider Nurse Practitioner Family
DX: Z12.5 Encounter for screening for malignant neoplasm of prostate (principal); Z11.4 Encounter for screening for human immunodeficiency virus [HIV]; I42.9 Cardiomyopathy, unspecified; R94.31 Abnormal electrocardiogram [ECG] [EKG]; I11.0 Hypertensive heart disease with heart failure; I50.20 Unspecified systolic (congestive) heart failure; B18.1 Chronic viral hepatitis B without delta-agent; B18.2 Chronic viral hepatitis C; F11.21 Opioid dependence, in remission; N40.1 Benign prostatic hyperplasia with lower urinary tract symptoms; R39.12 Poor urinary stream; M54.41 Lumbago with sciatica, right side; G89.29 Other chronic pain; M79.604 Pain in right leg; M79.641 Pain in right hand; M79.642 Pain in left hand; Z13.1 Encounter for screening for diabetes mellitus
CPT/HCPCS: 36415; 72100; 73130; 80048; 80061; 80076; 82043; 83036; 84153; 87389; 93306; 93356

== ENCOUNTER → 2023-02-09 15:04 | Outpatient (BNV) | payer OTHER, SELFPAY | PROVIDERS: PCP Nurse Practitioner Primary Care; Visit Provider Internal Medicine | DX: I34.0 Nonrheumatic mitral (valve) insufficiency (principal) | CPT/HCPCS: 93306 ==

== ENCOUNTER 2023-02-23 14:37 | Outpatient (AMB) | payer OTHER, SELFPAY ==
--- NOTE | 2023-02-23 14:43 | A.OFFVIS_ITS ---
Intake Vital Signs 02/23/23 14:47 BP 118/72 Blood Pressure Location Lt radial Position Sitting Pulse 74 Pulse Source Pulse Oximeter Pulse Oximetry (%) 97 Oxygen Delivery Method Room Air Intake Visit Reasons: MAT Visit Intake Note: THE PATIENT PRESENTS FOR A MAT VISIT Cream Cheese Maker Required: No Allergies No Known Allergies Allergy (Verified 02/23/23 14:48) Do you need a note to return to daycare/school/sports/work: No HPI MAT Visit HPI Details Patient presents for JOANA treatment follow-up. Currently prescribed Suboxone 8 mg daily. Continues to abstain from opiates. Excited to share that he has not been using cocaine daily as he had been. He reports that over the last 2 weeks he has used 2 times. Reports feeling overall better because of this. Would like to continue. [facility] Medical History Acute electrocardiogram changes Heart failure with reduced ejection fraction Patient denies significant medical history Surgical History No pertinent past surgical history Family History Other No family history of coronary artery disease Social History Household Members: Family Housing: House Do you presently have visiting nurse or other home services: No Alcohol intake: current Alcohol intake frequency: other Alcohol type: beer and hard liquor Patient Tobacco Use Status: Current everyday Tobacco user Cigarette Packs Per Day: 1 Cigarettes Per Day: 20 Substance Use Type: Crack/Cocaine and Heroin service: No Current occupational status: unemployed Review of Systems Const Reports as per HPI and Reports no additional complaints Physical Exam Vital Signs: Last Vital Signs Pulse 74 02/23/23 14:47 BP 118/72 02/23/23 14:47 Pulse Ox 97 02/23/23 14:47 Oxygen Delivery Method Room Air 02/23/23 14:47 Const General: cooperative, healthy appearing, no acute distress and well groomed Assessment & Plan Assessment & Plan (1) Opioid use disorder: Code(s): F11.90 - Opioid use, unspecified, uncomplicated Plan: * Continue Suboxone at current dose * Follow-up 3 weeks (2) Cocaine use disorder: Code(s): F14.10 - Cocaine abuse, uncomplicated Plan: * Risk reduction discussion Medications: Refilled 2 buprenorphine-naloxone 8-2 mg (Suboxone) 1 film sublingual DAILY 22 ea 0RF Coding Level of Care Code Est Pt Level 3 (99863) Diagnoses Opioid use disorder F11.90 Cocaine use disorder F14.10
[2023-02-23 14:47] VITALS: BP 118/72; PULSE 74; O2SAT 97
== END 2023-02-23 15:04 | disposition home or self-care (01) ==
LOC: HO.HCC 14:37
PROVIDERS: PCP Nurse Practitioner Primary Care; Visit Provider Nurse Practitioner Psychiatric/Mental Health
DX: F11.90 Opioid use, unspecified, uncomplicated (principal); F14.10 Cocaine abuse, uncomplicated
CPT/HCPCS: 99213

== ENCOUNTER → 2023-02-23 14:37 | Outpatient (BNVA) | payer OTHER, SELFPAY | PROVIDERS: PCP Nurse Practitioner Primary Care; Visit Provider Nurse Practitioner Psychiatric/Mental Health | DX: F11.20 Opioid dependence, uncomplicated (principal); F14.10 Cocaine abuse, uncomplicated | CPT/HCPCS: 99212 ==

== ENCOUNTER 2023-03-13 08:50 | Outpatient (AMB) | payer OTHER, SELFPAY ==
[2023-03-13 09:23] VITALS: BP 114/72; PULSE 54; BMI 17.5
--- NOTE | 2023-03-13 09:23 | A.OFFVIS_ITS ---
Intake Vital Signs 03/13/23 09:23 Height 5 ft 11 in Weight 125 lb 3.561 oz BMI 17.5 BP 114/72 Blood Pressure Location Lt brachial Position Sitting Pulse 54 Pulse Source Pulse Oximeter Intake Visit Reasons: 2 month f/u Distance Education Director Required: No Welder Apprentice Combination: Welder Apprentice Combination Present Accompanied by: Daughter Allergies No Known Allergies Allergy (Verified 03/13/23 09:29) Medication List - Last Reconciled 03/13/23 by LARRY PrestonC aspirin (Ecotrin Low Strength) 81 mg PO DAILY buprenorphine-naloxone 8-2 mg (Suboxone) 1 film sublingual DAILY carvedilol 3.125 mg See Protocol PO BID 90 days furosemide 40 mg PO DAILY ipratropium bromide 17 mcg/actuation (Atrovent HFA) 2 puffs inhalation TID lisinopril 10 mg See Protocol PO DAILY naloxone 4 mg/actuation (Narcan) 1 spray intranasal Q2M spironolactone (Aldactone) 25 mg PO DAILY 90 days topiramate 25 mg PO DAILY HPI 2 month f/u HPI Details Bart is a 68 yo male with PMH of substance abuse, cardiomyopathy, CHF who was [place] [facility] [place] with hypoxic respiratory failure and decompensated HF. His EF was found to be less than 10%. He was diuresed and Home lasix increased, aldactone added. On visits here 05/2022 and 01/12/2023 he was strongly encouraged to stop cocaine use. He was referred to the Addiction Medicine program and is now on Suboxone. Today he reports he is using Suboxone and tries to stay away from cocaine. He still has strong urges and will talk to the clinical statistical programmer at his next visit this coming week. Overall he has been feeling well with no shortness of breath, chest discomfort, palpitations. No presyncope, syncope, falls. No PND, orthopnea or edema. He is mostly sedentary and ambulates with a cane. His daughter is present. She has been very direct with him on his substance abuse and has strongly encouraged him to take charge of this. He says he is taking his meds as directed. [facility] Medical History Heart failure with reduced ejection fraction Acute electrocardiogram changes Patient denies significant medical history Surgical History No pertinent past surgical history Family History Other No family history of coronary artery disease Social History Household Members: Family Housing: House Do you presently have visiting nurse or other home services: No Alcohol intake: current Alcohol intake frequency: other Alcohol type: beer and hard liquor Patient Tobacco Use Status: Current everyday Tobacco user Cigarette Packs Per Day: 1 Cigarettes Per Day: 20 Substance Use Type: Crack/Cocaine and Heroin service: No Current occupational status: unemployed Review of Systems Const All systems reviewed & are unremarkable except as noted in HPI and below ENT Reports dizziness Card Denies chest pain, Denies chest pain at rest, Denies chest pain with activity, Denies rapid heart rate, Denies pedal edema, Denies edema, Denies leg edema, Den ies lightheadedness, Denies palpitations, Denies dyspnea, Denies dyspnea on exertion and Denies orthopnea Resp Denies cough, Denies dyspnea and Denies dyspnea on exertion GI Denies hematochezia and Denies change in stool character Musc Denies abnormal gait, Reports limited range of motion, Reports muscle cramps, Denies muscle weakness, Denies numbness, Denies radiating pain into limb, Denies stiffness and Denies tingling Neuro Denies abnormal gait, Reports dizziness, Denies numbness and Denies tingling Endo Denies palpitations Physical Exam Vital Signs: Last Vital Signs Pulse 54 03/13/23 09:23 BP 114/72 03/13/23 09:23 BMI result Body Mass Index 17.5 Const Other: Ambulates with cane Frail elderly male General: cooperative, comfortable and no acute distress Orientation/consciousness: patient oriented x3 Neck Neck: Yes normal visual inspection Resp Effort & Inspection: normal respiratory effort Auscultation: clear to auscultation bilaterally, no crackles, no rales, no rhonchi and no wheezes Cardio Jugular venous distension: no JVD Rate: regular rate Rhythm: regular rhythm Heart sounds: S1 normal heart sound present, S2 normal heart sound present, no murmurs and no rubs Neuro General: patient oriented x3 Extrem General: Yes normal to inspection, No no pedal edema and No calf tenderness Psych Appearance: grossly normal Mental Status: mental status grossly normal Speech and movement: Normal speech and movement present Assessment & Plan Assessment & Plan (1) Cardiomyopathy: Code(s): I42.9 - Cardiomyopathy, unspecified Qualifiers: Cardiomyopathy type: due to drug Qualified Code(s): I42.7 - Cardiomyopathy due to drug and external agent Plan: Hx of chronic substance/ cocaine abuse. Known Cardiomyopathy with EF 15-20% in 2019. Last April he was admitted [place] [facility] with hypoxic resp failure, acute on chronic systolic HF. Echo showed EF <10%, severe decrease in RVSF. He was diuresed and started on Lasix 40mg daily. Aldactone was added. He was continued on Carvedilol and Lisinopril. On follow-up visit he continued to report cocaine use. He was referred to addiction medicine program and is now on Suboxone. An echocardiogram done on 02/09/2023 showed EF 29% which is a mild improvement. On examination today he does not appear in heart failure. Applauded him on his recovery so far and encouraged ongoing cocaine cessation. He has been informed how cocaine affects his heart function. Patient informed that even at present he is at high risk for recurrent HF, sudden . He has not entirely stopped cocaine at this time. Will continue with med management and re-evaluate his condition in 3 months. Cardiac catheterization, ICD placement can be considered if he continues to have good recovery from his drug addiction. 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
== END 2023-03-13 10:02 | disposition home or self-care (01) ==
PROVIDERS: PCP Nurse Practitioner Primary Care; Visit Provider Nurse Practitioner Family
DX: I42.7 Cardiomyopathy due to drug and external agent (principal); I50.9 Heart failure, unspecified; F14.10 Cocaine abuse, uncomplicated
CPT/HCPCS: 99213

== ENCOUNTER → 2023-03-13 08:50 | Outpatient (BNVA) | payer OTHER, SELFPAY | PROVIDERS: PCP Nurse Practitioner Primary Care; Visit Provider Nurse Practitioner Family | DX: I42.7 Cardiomyopathy due to drug and external agent (principal); I50.9 Heart failure, unspecified; F14.10 Cocaine abuse, uncomplicated | CPT/HCPCS: 99212 ==

== ENCOUNTER 2023-03-17 13:08 | Outpatient (AMB) | payer OTHER, SELFPAY ==
--- NOTE | 2023-03-17 13:09 | A.OFFVIS_ITS ---
Intake Vital Signs 03/17/23 13:17 BP 124/72 Blood Pressure Location Lt radial Position Sitting Pulse 70 Pulse Source Pulse Oximeter Pulse Oximetry (%) 98 Oxygen Delivery Method Room Air Intake Visit Reasons: MAT Visit Intake Note: the patient presents for a mat visit Technical Document Writer Required: No Allergies No Known Allergies Allergy (Verified 03/17/23 13:17) Do you need a note to return to daycare/school/sports/work: No HPI MAT Visit HPI Details Patient presents for JOANA treatment follow up Bright affect, reporting he has not used any substances since Thursday. Use continues to decrease overall and patient reports feeling better with increased energy and motivation [facility] Medical History Heart failure with reduced ejection fraction Acute electrocardiogram changes Patient denies significant medical history Surgical History No pertinent past surgical history Family History Other No family history of coronary artery disease Social History Household Members: Family Housing: House Do you presently have visiting nurse or other home services: No Alcohol intake: current Alcohol intake frequency: other Alcohol type: beer and hard liquor Patient Tobacco Use Status: Current everyday Tobacco user Cigarette Packs Per Day: 1 Cigarettes Per Day: 20 Substance Use Type: Crack/Cocaine and Heroin service: No Current occupational status: unemployed Review of Systems Const Reports as per HPI and Reports no additional complaints Physical Exam Vital Signs: Last Vital Signs Pulse 70 03/17/23 13:17 BP 124/72 03/17/23 13:17 Pulse Ox 98 03/17/23 13:17 Oxygen Delivery Method Room Air 03/17/23 13:17 Const General: cooperative, healthy appearing, no acute distress and well groomed Assessment & Plan Assessment & Plan (1) Opioid use disorder: Code(s): F11.90 - Opioid use, unspecified, uncomplicated Plan: * Continue Suboxone at current dose * Follow-up 6 weeks (2) Cocaine use disorder: Code(s): F14.10 - Cocaine abuse, uncomplicated Plan: * Risk reduction discussion Coding Level of Care Code Est Pt Level 4 (86507) Diagnoses Opioid use disorder F11.90 Cocaine use disorder F14.10
[2023-03-17 13:17] VITALS: BP 124/72; PULSE 70; O2SAT 98
== END 2023-03-17 13:29 | disposition home or self-care (01) ==
PROVIDERS: PCP Nurse Practitioner Primary Care; Visit Provider Nurse Practitioner Psychiatric/Mental Health
DX: F11.90 Opioid use, unspecified, uncomplicated (principal); F14.10 Cocaine abuse, uncomplicated
CPT/HCPCS: 99214

== ENCOUNTER → 2023-03-17 13:08 | Outpatient (BNVA) | payer OTHER, SELFPAY | PROVIDERS: PCP Nurse Practitioner Primary Care; Visit Provider Nurse Practitioner Psychiatric/Mental Health | DX: F11.20 Opioid dependence, uncomplicated (principal); F14.10 Cocaine abuse, uncomplicated | CPT/HCPCS: 99212 ==

== ENCOUNTER 2023-05-21 14:15 | Outpatient (AMB) | payer OTHER, SELFPAY ==
--- NOTE | 2023-05-21 14:21 | MHC.AM.SUB ---
Intake Vital Signs 05/21/23 14:25 BP 130/72 Blood Pressure Location Lt radial Position Sitting Pulse 88 Pulse Source Pulse Oximeter Pulse Oximetry (%) 94 Oxygen Delivery Method Room Air Intake Visit Reasons: MAT VISIT Intake Note: T he patient presets for a mat visit Circus Supervisor Required: No Allergies No Known Allergies Allergy (Verified 05/21/23 14:26) Do you need a note to return to daycare/school/sports/work: No HPI MAT VISIT HPI Details Patient presents for JOANA treatment and follow up Accompanied by 2 family members Reports last illicit substance use over a week ago Has been ill with a cough and fever that he is being treated with abx for Denies any concerns at this time [facility] Medical History Heart failure with reduced ejection fraction Acute electrocardiogram changes Patient denies significant medical history Surgical History No pertinent past surgical history Family History Other No family history of coronary artery disease Social History Household Members: Family Housing: House Do you presently have visiting nurse or other home services: No Alcohol intake: current Alcohol intake frequency: other Alcohol type: beer and hard liquor Patient Tobacco Use Status: Current everyday Tobacco user Cigarette Packs Per Day: 1 Cigarettes Per Day: 20 Substance Use Type: Crack/Cocaine and Heroin service: No Current occupational status: unemployed Review of Systems Const Reports as per HPI Resp Reports cough Physical Exam Vital Signs: Last Vital Signs Pulse 88 05/21/23 14:25 BP 130/72 05/21/23 14:25 Pulse Ox 94 05/21/23 14:25 Oxygen Delivery Method Room Air 05/21/23 14:25 Const General: cooperative and no acute distress Nutritional Appearance: thin Resp Effort & Inspection: normal respiratory effort Skin General skin exam: no rashes or lesions noted Psych Appearance: grossly normal Mental Status: mental status grossly normal Affect: normal affect Attitude: cooperative Assessment & Plan Assessment & Plan (1) Opioid use disorder: Code(s): F11.90 - Opioid use, unspecified, uncomplicated Plan: Continue Suboxone at current dose Follow-up 6 weeks (2) Cocaine use disorder: Code(s): F14.10 - Cocaine abuse, uncomplicated Plan: Harm reduction discussed Coding Level of Care Code Est Pt Level 3 (98258) Diagnoses Opioid use disorder F11.90 Cocaine use disorder F14.10
[2023-05-21 14:25] VITALS: BP 130/72; PULSE 88; O2SAT 94
== END 2023-05-21 15:00 | disposition home or self-care (01) ==
PROVIDERS: PCP Nurse Practitioner Primary Care; Visit Provider Nurse Practitioner Family
DX: F11.90 Opioid use, unspecified, uncomplicated (principal); F14.10 Cocaine abuse, uncomplicated
CPT/HCPCS: 99213

== ENCOUNTER → 2023-05-21 14:15 | Outpatient (BNVA) | payer OTHER, SELFPAY | PROVIDERS: PCP Nurse Practitioner Primary Care; Visit Provider Nurse Practitioner Family | DX: F11.20 Opioid dependence, uncomplicated (principal); F14.10 Cocaine abuse, uncomplicated | CPT/HCPCS: 99212 ==

== ENCOUNTER 2023-07-09 13:09 | Outpatient (AMB) | payer OTHER, SELFPAY ==
--- NOTE | 2023-07-09 13:11 | A.OFFVISCC_ITS ---
Intake Vital Signs 07/09/23 13:16 BP 128/76 Blood Pressure Location Lt radial Position Sitting Pulse 73 Pulse Source Pulse Oximeter Pulse Oximetry (%) 99 Oxygen Delivery Method Room Air Intake Visit Reasons: MAT VISIT Intake Note: the patient resents for a mat visit Health Service Worker Required: No Allergies No Known Allergies Allergy (Verified 07/09/23 13:17) Do you need a note to return to daycare/school/sports/work: No HPI MAT VISIT HPI Details Patient presents for JOANA treatment and follow up He reports using cocaine once last month- he was triggered by a passing of a close family relative, he reports that is the only time he used He reports having to take a second 8mg film in the afternoon sometimes because he feels as though his first 8mg wears off after approx 6 or so hours after administration. When it wears he feels unwell, he unable to describe exactly his symptoms Minimal concerns for side effects, occasional constipation. [facility] Medical History Heart failure with reduced ejection fraction Acute electrocardiogram changes Patient denies significant medical history Surgical History No pertinent past surgical history Family History Other No family history of coronary artery disease Social History Household Members: Family Housing: House Do you presently have visiting nurse or other home services: No Alcohol intake: current Alcohol intake frequency: other Alcohol type: beer and hard liquor Patient Tobacco Use Status: Current everyday Tobacco user Cigarette Packs Per Day: 1 Cigarettes Per Day: 20 Substance Use Type: Crack/Cocaine and Heroin service: No Current occupational status: unemployed Review of Systems Const Reports as per HPI Physical Exam Vital Signs: Last Vital Signs Pulse 73 07/09/23 13:16 BP 128/76 07/09/23 13:16 Pulse Ox 99 07/09/23 13:16 Oxygen Delivery Method Room Air 07/09/23 13:16 Const General: cooperative, comfortable and no acute distress Resp Effort & Inspection: normal respiratory effort and able to speak in complete sentences Psych Appearance: grossly normal Mental Status: mental status grossly normal Speech and movement: Normal speech and movement present Assessment & Plan Assessment & Plan (1) Opioid use disorder: Code(s): F11.90 - Opioid use, unspecified, uncomplicated Plan: -Refill subooxne 8mg, added 2mg dose for the afternoon for pt to take to address afternoon withdrawal symptoms. Plan is to call patient in 1 week to assess effectiveness of dose. -Sent script for docusate to pharmacy to address occasional constipation from suboxone -Follow up 1 month in clinic (2) Cocaine use disorder: Code(s): F14.10 - Cocaine abuse, uncomplicated Plan: -Used x 1 when in bereavement, harm reduction discussed Medications: New buprenorphine-naloxone 2-[address] 1 strip/tab under (each) side of tongue 1 film buccal DAILY 7 ea 0RF docusate sodium 100 mg PO DAILY 30 caps 3RF Refilled buprenorphine-naloxone 8-2 mg (Suboxone) 1 film sublingual DAILY 30 ea 0RF Coding Level of Care Code Est Pt Level 3 (63081) Diagnoses Opioid use disorder F11.90 Cocaine use disorder F14.10
[2023-07-09 13:16] VITALS: BP 128/76; PULSE 73; O2SAT 99
== END 2023-07-09 13:36 | disposition home or self-care (01) ==
PROVIDERS: PCP Nurse Practitioner Primary Care; Visit Provider Nurse Practitioner Family
DX: F11.90 Opioid use, unspecified, uncomplicated (principal); F14.10 Cocaine abuse, uncomplicated
CPT/HCPCS: 99214

== ENCOUNTER → 2023-07-09 13:09 | Outpatient (BNVA) | payer OTHER, SELFPAY | PROVIDERS: PCP Nurse Practitioner Primary Care; Visit Provider Nurse Practitioner Family | DX: F11.20 Opioid dependence, uncomplicated (principal); F14.10 Cocaine abuse, uncomplicated | CPT/HCPCS: 99212 ==

== ENCOUNTER → 2023-07-21 15:04 | Outpatient (BNVA) | payer OTHER, SELFPAY | PROVIDERS: PCP Nurse Practitioner Primary Care; Visit Provider Internal Medicine | DX: Z12.11 Encounter for screening for malignant neoplasm of colon (principal); Z12.12 Encounter for screening for malignant neoplasm of rectum; I42.7 Cardiomyopathy due to drug and external agent; I50.9 Heart failure, unspecified; F14.10 Cocaine abuse, uncomplicated; F11.20 Opioid dependence, uncomplicated | CPT/HCPCS: 99202 ==

== ENCOUNTER 2023-07-21 15:05 | Outpatient (AMB) | payer OTHER, SELFPAY ==
--- NOTE | 2023-07-21 15:15 | MHC.OFFVIS ---
Intake Vital Signs 07/21/23 15:32 Height 5 ft 11 in Weight 130 lb BMI 18.1 BP 112/67 Blood Pressure Location Lt brachial Position Sitting Pulse 82 Intake Visit Reasons: Colonoscopy Screening Intake Note: Patient new consult for 1st Colonoscopy screening Patient cc: GERD and Constipation. Patient is been fatigue and with dizziness, too. Denies any other GI issues. 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 Daughter Lizzie was also accompanying the patient. Patient currently has no abdominal complaints to include abdominal pain, vomiting, diarrhea, blood in stool. No unintentional weight loss reported. He has never had colorectal cancer screening before. He does have severe comorbidities as above. Of note, during the encounter, also noted to have productive cough and hoarse voice. [facility] Medical History Heart failure with reduced ejection fraction Acute electrocardiogram changes Patient denies significant medical history Surgical History No pertinent past surgical history Family History Other No family history of coronary artery disease Social History Household Members: Family Housing: House Do you presently have visiting nurse or other home services: No Alcohol intake: current Alcohol intake frequency: other Alcohol type: beer and hard liquor Patient Tobacco Use Status: Current everyday Tobacco user Cigarette Packs Per Day: 1 Cigarettes Per Day: 20 Substance Use Type: Crack/Cocaine and Heroin service: No Current occupational status: unemployed Review of Systems Const All systems reviewed & are unremarkable except as noted in HPI and below Physical Exam Vital Signs: Last Vital Signs Pulse 82 07/21/23 15:32 BP 112/67 07/21/23 15:32 BMI result Body Mass Index 18.1 General appearance: Frail, appears older than stated age HEENT: Nonicteric Chest: Audible wheeze Abdomen: Nondistended Extremities: Peripheral edema Assessment & Plan Assessment & Plan (1) Opioid use disorder: Code(s): F11.90 - Opioid use, unspecified, uncomplicated (2) Cocaine use disorder: Code(s): F14.10 - Cocaine abuse, uncomplicated (3) Congestive heart failure: Code(s): I50.9 - Heart failure, unspecified (4) Cardiomyopathy: Code(s): I42.9 - Cardiomyopathy, unspecified Qualifiers: Cardiomyopathy type: due to drug Qualified Code(s): I42.7 - Cardiomyopathy due to drug and external agent (5) Encounter for colorectal cancer screening: Code(s): Z12.11 - Encounter for screening for malignant neoplasm of colon; Z12.12 - Encounter for screening for malignant neoplasm of rectum Plan Discussed with the patient as well as his daughter that due to his extensive comorbidities and severe cardiomyopathy, would not recommend an elective screening colonoscopy at this time given i) limited life expectancy and ii) high risk of kobe-procedure complications from sedation due to underlying cardiac disease. He was thoroughly counseled for abstinence from polysubstance use including cocaine and compliance with his medications through cardiology office. He is supposed to be following up for discussion of cardiac catheterization as well as possible ICD placement. Colon cancer screening of any kind, stool-based or colonoscopy, is not being recommended at this time. We will remain in communication with his cardiology office to revisit this, if his overall health and life expectancy improves. He was also encouraged to discuss chest imaging with his PCP given ongoing respiratory symptoms in the setting of >100 pack year smoking history. 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
[2023-07-21 15:32] VITALS: BP 112/67; PULSE 82; BMI 18.1
== END 2023-07-21 15:44 | disposition home or self-care (01) ==
PROVIDERS: PCP Nurse Practitioner Primary Care; Visit Provider Internal Medicine
DX: F11.90 Opioid use, unspecified, uncomplicated (principal); F14.10 Cocaine abuse, uncomplicated; I50.9 Heart failure, unspecified; I42.7 Cardiomyopathy due to drug and external agent; Z12.11 Encounter for screening for malignant neoplasm of colon; Z12.12 Encounter for screening for malignant neoplasm of rectum
CPT/HCPCS: 99204

== ENCOUNTER 2023-07-24 09:45 | Outpatient (AMB) | payer OTHER, SELFPAY ==
--- NOTE | 2023-07-24 09:00 | A.OFFVIS_ITS ---
Intake Intake Visit Reasons: LDCT SD Allergies No Known Allergies Allergy (Verified 07/21/23 15:15) HPI HPI Comments History of Present Illness Details Bart is a pleasant 68 year old male, current smoker with a 58 PYH. Patient has been smoking since age 10 for 58 years at 1 ppd. Denies marijuana use. Patient with significant substance abuse history. Denies exposure to chemicals or substances like asbestos. Admits second hand smoke exposure. Denies known family history of lung cancer. Denies personal history of cancers. Denies chest CT in last year. Denies recent travel outside the [place]. Admits testing positive for COVID. Admits receiving COVID Vaccine. Denies fever, chills, chest pain, new cough, hemoptysis or unintentional weight loss. Lung Cancer Screening Questionnaire reviewed with patient by provider. Shared Decision Making Completed. Discussed in detail with patient, the risk versus benefit of LDCT screening. Patient in agreement of proceeding with scan. [facility] Medical History Heart failure with reduced ejection fraction Acute electrocardiogram changes Patient denies significant medical history Surgical History No pertinent past surgical history Family History Other No family history of coronary artery disease Social History (Updated 07/24/23 @ 10:15 by Inga Grijalva NP) Household Members: Family Housing: House Do you presently have visiting nurse or other home services: No Alcohol intake: current Alcohol intake frequency: other Alcohol type: beer and hard liquor Patient Tobacco Use Status: Current everyday Tobacco user Tobacco use type: Cigarette Cigarette Packs Per Day: 1 Cigarettes Per Day: 20 Years Smoked: 58 Substance Use Type: Crack/Cocaine and Heroin service: No Current occupational status: unemployed Assessment & Plan Assessment & Plan (1) Nicotine dependence, cigarettes, uncomplicated: Code(s): F17.210 - Nicotine dependence, cigarettes, uncomplicated Plan Shared decision-making visit completed today in office. This patient meets criteria for LDCT for lung cancer screening purposes and is asymptomatic. Offered smoking cessation. Patient has been scheduled for a low dose chest CT for screening purposes at [facility]. We discussed how the results w ill be obtained depending on CT findings. RADS 1 and RADS 2 will receive a letter with results and will follow up for annual LDCT. Patient informed they will be contacted at later date to schedule upcoming LDCT scan. RADS 3 and RADS 4 will receive a telephone call, or an office visit after reviewing case at our Lung Cancer Conference to determine when the next LDCT will be scheduled or further interventions that may be needed. Discussed importance of screening program and compliance with yearly LDCT scan as scheduled. Risks, benefits, and alternatives were discussed in detail and patient agrees to proceed. Risks discussed include but are not limited to: radiation exposure and possibility of additional intervention for benign disease. Benefits include detection of lung cancer at an early stage. A copy of today's visit and LDCT results will be sent to patient's PCP. Incidental findings on LDCT are PCP's responsibility. If there are incidental findings, our office will ensure that PCP office is aware of these findings. All questions were answered and patient is in agreement of plan. Coding Level of Care Code Lung Cancer Screening G0296 Diagnoses Nicotine dependence, cigarettes, uncomplicated F17.210
== END 2023-07-24 10:29 | disposition home or self-care (01) ==
PROVIDERS: PCP Nurse Practitioner Primary Care; Referring Provider Nurse Practitioner Primary Care; Visit Provider Nurse Practitioner Family
DX: F17.210 Nicotine dependence, cigarettes, uncomplicated (principal)
CPT/HCPCS: G0296

== ENCOUNTER 2023-07-24 10:09 | Outpatient (REF) | payer OTHER, SELFPAY ==
--- NOTE | ~2023-07-24 | CT_ITS ---
EXAMINATION: CT CHEST SCREENING CLINICAL INFORMATION: Current smoker with 48 pack year history. COMPARISON: 06/20/2021 chest radiograph. TECHNIQUE: Multidetector volumetric CT imaging of the chest is performed without contrast using low dose technique. Additional 2D coronal and sagittal reformatted images and axial 3D maximum intensity projection (MIP) images are generated on the CT workstation. This CT examination was performed using dose optimization techniques as appropriate, variously including the following: *Automated exposure control *Adjustment of mA and/or kV according to patient size (this includes techniques or standardized protocols for targeted exams where dose is matched to indication/reason for exam; i.e. extremities or head) *Use of iterative reconstruction technique DLP: 44 mGy-cm FINDINGS: STRUCTURAL ENGINEER: Aortic calcifications. Hyperinflated but clear lungs. LUNGS: Trachea and bronchi are patent. Mild apical pleural thickening. Centrilobular emphysema with biapical bullous changes, right greater than left. 4 mm RML subpleural nodule, 6:368. 5 mm RLL, adjacent to the major fissure, 6:328. MEDIASTINUM: Unremarkable thyroid. No pathologic lymphadenopathy. Nonenlarged heart. No pericardial effusion. Atherosclerotic calcifications nonaneurysmal aorta. Nonenlarged pulmonary arteries. CORONARY ARTERY CALCIFICATION: Moderately severe. PLEURA: There is no pleural effusion. No pleural mass or thickening. AXILLA: Nonspecific axillary lymph nodes. UPPER ABDOMEN: Unremarkable OSSEOUS STRUCTURES: Unremarkable. CT/CT lung screening IMPRESSION: Emphysema and bullous changes. Benign-appearing lung nodules, none larger than 5 mm. ASSESSMENT: Lung-RADS category 2: Benign RECOMMENDATION: Routine annual low-dose CT screening in 12 months.
== END 2023-07-24 10:10 | disposition home or self-care (01) ==
LOC: HO.CT 10:09
PROVIDERS: PCP Nurse Practitioner Primary Care; Visit Provider Nurse Practitioner Family
DX: Z12.2 Encounter for screening for malignant neoplasm of respiratory organs (principal); F17.210 Nicotine dependence, cigarettes, uncomplicated
CPT/HCPCS: 71271; G0296

== ENCOUNTER 2023-08-12 15:23 | Outpatient (AMB) | payer OTHER, SELFPAY ==
--- NOTE | 2023-08-12 15:29 | A.OFFVISCC_ITS ---
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 Takes his 8mg every morning at 9am. His daughter is looking to getting him into an assisted living facility, she has no room for him at her apartment and he is not getting along well with his son who he currently lives with [facility] Medical History Heart failure with reduced ejection fraction Acute electrocardiogram changes Patient denies significant medical history Surgical History No pertinent past surgical history Family History Other No family history of coronary artery disease Social History (Updated 07/24/23 @ 10:15 by Inga Grijalva NP) Household Members: Family Housing: House Do you presently have visiting nurse or other home services: No Alcohol intake: current Alcohol intake frequency: other Alcohol type: beer and hard liquor Patient Tobacco Use Status: Current everyday Tobacco user Tobacco use type: Cigarette Cigarette Packs Per Day: 1 Cigarettes Per Day: 20 Years Smoked: 58 Substance Use Type: Crack/Cocaine and Heroin service: No Current occupational status: unemployed Review of Systems Const Reports as per HPI Physical Exam Vital Signs: Last Vital Signs Pulse 75 08/12/23 15:35 BP 128/70 08/12/23 15:35 Pulse Ox 97 08/12/23 15:35 Oxygen Delivery Method Room Air 08/12/23 15:35 Const General: cooperative and no acute distress Nutritional Appearance: underweight Resp Effort & Inspection: normal respiratory effort Skin General skin exam: no rashes or lesions noted Psych Appearance: grossly normal and well kempt Mental Status: mental status grossly normal Speech and movement: Normal speech and movement present Affect: normal affect Attitude: cooperative Assessment & Plan Assessment & Plan (1) Opioid use disorder: Code(s): F11.90 - Opioid use, unspecified, uncomplicated Plan: -Increased morning dose to 12mg, reviewed with patient and his daughter that he can take a 2mg in the evening if he feels cravings -Plan to follow up in 1 week to assess effectiveness of dose increase -Mass pat reviewed -Follow up 1 week (2) Cocaine use disorder: Code(s): F14.10 - Cocaine abuse, uncomplicated Plan: -Harm reduction discussion Medications: New buprenorphine-naloxone 12-3 mg 1 film buccal Q24H 7 ea 0RF Coding Level of Care Code Est Pt Level 3 (59805) Diagnoses Opioid use disorder F11.90 Cocaine use disorder F14.10
[2023-08-12 15:35] VITALS: BP 128/70; PULSE 75; O2SAT 97
== END 2023-08-12 15:52 | disposition home or self-care (01) ==
PROVIDERS: PCP Nurse Practitioner Primary Care; Visit Provider Nurse Practitioner Family
DX: F11.90 Opioid use, unspecified, uncomplicated (principal); F14.10 Cocaine abuse, uncomplicated
CPT/HCPCS: 99213

== ENCOUNTER → 2023-08-12 15:23 | Outpatient (BNVA) | payer OTHER, SELFPAY | PROVIDERS: PCP Nurse Practitioner Primary Care; Visit Provider Nurse Practitioner Family | DX: F11.20 Opioid dependence, uncomplicated (principal); F14.10 Cocaine abuse, uncomplicated | CPT/HCPCS: 99212 ==

== ENCOUNTER 2023-09-09 15:37 | Outpatient (AMB) | payer OTHER, SELFPAY ==
--- NOTE | 2023-09-09 15:38 | A.OFFVISCC_ITS ---
Intake Vital Signs 09/09/23 15:42 BP 110/70 Blood Pressure Location Rt radial Position Sitting Respiration 20 Pulse 89 Pulse Source Pulse Oximeter Intake Visit Reasons: MAT Allergies No Known Allergies Allergy (Verified 08/12/23 15:30) HPI MAT HPI Details Patient presents for follow up with his daughter Doing well with current dose of 14mg daily, has not used any substances in quite some time Chart reviewed, recently eval for colonoscopy--procedure deferred related to risk. Still engaged with all providers Looking to see senior staff psychologist for joint pain in his hands--daughter following up on that, provided with contact information no questions or concerns at this time [facility] Medical History Heart failure with reduced ejection fraction Acute electrocardiogram changes Patient denies significant medical history Surgical History No pertinent past surgical history Family History Other No family history of coronary artery disease Social History (Updated 07/24/23 @ 10:15 by Inga Grijalva NP) Household Members: Family Housing: House Do you presently have visiting nurse or other home services: No Alcohol intake: current Alcohol intake frequency: other Alcohol type: beer and hard liquor Patient Tobacco Use Status: Current everyday Tobacco user Tobacco use type: Cigarette Cigarette Packs Per Day: 1 Cigarettes Per Day: 20 Years Smoked: 58 Substance Use Type: Crack/Cocaine and Heroin service: No Current occupational status: unemployed Review of Systems Const Reports as per HPI Physical Exam Vital Signs: Last Vital Signs Pulse 89 09/09/23 15:42 Resp 20 09/09/23 15:42 BP 110/70 09/09/23 15:42 Const General: cooperative and no acute distress Nutritional Appearance: underweight Resp Effort & Inspection: normal respiratory effort Skin General skin exam: no rashes or lesions noted Psych Appearance: grossly normal and well kempt Mental Status: mental status grossly normal Speech and movement: Normal speech and movement present Affect: normal affect Attitude: cooperative Assessment & Plan Assessment & Plan (1) Opioid use disorder: Code(s): F11.90 - Opioid use, unspecified, uncomplicated Plan: -continue suboxone at current dose -follow up 2 months -encouraged to call office with any questions or concerns Medications: Refilled buprenorphine-naloxone 12-3 mg 1 film buccal Q24H 30 ea 1RF buprenorphine-naloxone 2-0.5 mg daily at 3pm 1 film buccal DAILY 30 ea 1RF Coding Level of Care Code Est Pt Level 3 (10439) Diagnoses Opioid use disorder F11.90
[2023-09-09 15:42] VITALS: BP 110/70; PULSE 89; RESP 20
== END 2023-09-09 16:14 | disposition home or self-care (01) ==
PROVIDERS: PCP Nurse Practitioner Primary Care; Visit Provider Nurse Practitioner Psychiatric/Mental Health
DX: F11.90 Opioid use, unspecified, uncomplicated (principal)
CPT/HCPCS: 99213

== ENCOUNTER → 2023-09-09 15:37 | Outpatient (BNVA) | payer OTHER, SELFPAY | PROVIDERS: PCP Nurse Practitioner Primary Care; Visit Provider Nurse Practitioner Psychiatric/Mental Health | DX: Z51.81 Encounter for therapeutic drug level monitoring (principal); F11.20 Opioid dependence, uncomplicated | CPT/HCPCS: 99212 ==

== ENCOUNTER 2023-11-04 15:25 | Outpatient (AMB) | payer OTHER, SELFPAY ==
[2023-11-04 15:29] VITALS: BP 128/88; PULSE 83; O2SAT 96
--- NOTE | 2023-11-04 15:29 | MHC.AM.SUB ---
Vital Signs 11/04/23 15:29 BP 128/88 Blood Pressure Location Rt brachial Position Sitting Pulse 83 Pulse Source Pulse Oximeter Pulse Oximetry (%) 96 Oxygen Delivery Method Room Air Intake Visit Reasons: MAT Accompanied by: Daughter Allergies No Known Allergies Allergy (Verified 08/12/23 15:30) HPI HPI MAT: Details: Patient presets for OUD and cocaine use follow up Daughter present during visit Patient reports he is stable on current dose of subxone and has no cravings Denies any side effects including constipation Unfortunately patient is also spending most of his time inside and usually in bed. He avoids going out by himself as his neighborhood has a lot of drug use and he does not want to be triggered. Discussed other places to socialize --transportation is a challenge. Daughter shared that she has been trying to pick him up on the weekends as much as possible Praised patient on behavior change related to substance use. It has been several months since he has used cocaine or opiates. He is pleased with himself and shared that having support of his family is what made this possible for him-he shared that in the past relationships were strained and he had little to no support or connection with his family. [facility] Medical History (Updated 11/05/23 @ 15:13 by Meseret Monahan CNP) Opioid use disorder Cocaine use disorder Heart failure with reduced ejection fraction Acute electrocardiogram changes Patient denies significant medical history Surgical History No pertinent past surgical history Family History Other No family history of coronary artery disease Social History (Updated 07/24/23 @ 10:15 by Inga Grijalva NP) Household Members: Family Housing: House Do you presently have visiting nurse or other home services: No Alcohol intake: current Alcohol intake frequency: other Alcohol type: beer and hard liquor Patient Tobacco Use Status: Current everyday Tobacco user Tobacco use type: Cigarette Cigarette Packs Per Day: 1 Cigarettes Per Day: 20 Years Smoked: 58 Substance Use Type: Crack/Cocaine and Heroin service: No Current occupational status: unemployed Review of Systems Const Reports as per HPI Physical Exam Vital Signs: Last Vital Signs Pulse 83 11/04/23 15:29 BP 128/88 11/04/23 15:29 Pulse Ox 96 11/04/23 15:29 Oxygen Delivery Method Room Air 11/04/23 15:29 Const General: cooperative and no acute distress Nutritional Appearance: underweight Resp Effort & Inspection: normal respiratory effort Skin General skin exam: no rashes or lesions noted Psych Appearance: grossly normal and well kempt Mental Status: mental status grossly normal Speech and movement: Normal speech and movement present Affect: normal affect Attitude: cooperative Assessment & Plan Assessment & Plan (1) Opioid use disorder, moderate, in early remission, on maintenance therapy, dependence: Code(s): F11.21 - Opioid dependence, in remission Category: Medical Plan: continue suboxone at current dose relapse prevention discussion follow up 3 months (2) Cocaine use disorder, severe, in early remission: Code(s): F14.21 - Cocaine dependence, in remission Category: Medical Plan: relapse prevention discussion Medications: Refilled buprenorphine-naloxone 12-3 mg 1 film buccal Q24H 30 ea 2RF buprenorphine-naloxone 2-0.5 mg daily at 3pm 1 film buccal DAILY 30 ea 2RF
== END 2023-11-04 15:51 | disposition home or self-care (01) ==
LOC: HO.HCC 15:25
PROVIDERS: PCP Nurse Practitioner Primary Care; Visit Provider Nurse Practitioner Psychiatric/Mental Health
DX: F11.21 Opioid dependence, in remission (principal); F14.21 Cocaine dependence, in remission
CPT/HCPCS: 99213

== ENCOUNTER → 2023-11-04 15:25 | Outpatient (BNVA) | payer OTHER, SELFPAY | PROVIDERS: PCP Nurse Practitioner Primary Care; Visit Provider Nurse Practitioner Psychiatric/Mental Health | DX: F11.21 Opioid dependence, in remission (principal); F14.21 Cocaine dependence, in remission; Z79.899 Other long term (current) drug therapy | CPT/HCPCS: 99212 ==

== ENCOUNTER 2023-11-13 14:01 | Outpatient (REF) | payer OTHER, SELFPAY ==
--- NOTE | ~2023-11-13 | MM_ITS ---
EXAMINATION: BONE DENSITOMETRY CLINICAL INDICATION: Osteoporosis, nicotine dependence. COMPARISON: This is the patient's baseline examination. TECHNIQUE: Using a [employer] DXA System (software version: 13.1) manufactured by [employer], dual-energy x-ray absorptiometry was performed of the lumbar spine and left hip. The images are of good technical quality. Summary results are attached. FINDINGS: LEFT FEMUR, NECK: BMD 0.888 g/cm2, Z-score 0.3, T-score -1.4, osteopenia. LEFT FEMUR, TOTAL: BMD 0.888 g/cm2, Z-score -0.3, T-score -1.5, osteopenia. AP SPINE L1-L4: BMD 1.246 g/cm2, Z-score 1.4, T-score 0.2, normal. IDENTIFIED RISK FACTORS: Low body weight, recurrent falls, current smoker. HISTORY OF FRACTURE: None listed. MEDICATIONS: None listed. MM/XR DEXA axial skeleton IMPRESSION: 1. DIAGNOSIS: Osteopenia based on the lowest T-score value of -1.5 in the total femur applying World Health Organization criteria. 2. 10-YEAR FRACTURE RISK PREDICTION, FRAX: Major osteoporotic fracture (clinical spine, forearm, hip or shoulder) 2.8%. Hip fracture 1.0%. 3. Treatment Recommendations: NOF guidelines recommend consideration for treatment in postmenopausal women and men age 50 and older presenting with the following: -A hip or vertebral (clinical or morphometric) fracture. -T-score less than or equal to -2.5 at the femoral neck or spine after appropriate evaluation to exclude secondary causes. -Low bone mass at the hip or spine and a 10-year fracture probability by FRAX of greater than or equal to 3% for hip fracture or greater than or equal to 20% for major osteoporotic fracture based on the [place] adapted WHO algorithm. 4. Other Recommendations: All treatment decisions require clinical judgment and consideration of individual patient factors, including patient preferences, comorbidities, previous drug use, risk factors not captured in the FRAX model (e.g. frailty, falls, vitamin D deficiency, increased bone turnover, interval significant decline in bone density) and possible under or overestimation of fracture risk by FRAX. Additional medical evaluation for secondary cause of low bone mineral density may be appropriate. FUTURE SCAN RECOMMENDATION: People with diagnosed cases of osteoporosis or at high risk for fracture should have regular bone mineral density tests. For patients eligible for Medicare, routine testing is allowed once every 2 years. The testing frequency can be increased to one year for patients who have rapidly progressing disease, those who are receiving or discontinuing medical therapy to restore bone mass, or have additional risk factors.
== END 2023-11-13 14:02 | disposition home or self-care (01) ==
LOC: HO.MAMMO 14:01
PROVIDERS: Visit Provider Nurse Practitioner Primary Care
DX: Z13.820 Encounter for screening for osteoporosis (principal); M85.852 Other specified disorders of bone density and structure, left thigh; F17.210 Nicotine dependence, cigarettes, uncomplicated; Z91.81 History of falling
CPT/HCPCS: 77080

== ENCOUNTER 2023-12-16 08:11 | Outpatient (AMB) | payer OTHER, SELFPAY ==
--- NOTE | 2023-12-16 08:13 | MHC.OFFVIS ---
Vital Signs 12/16/23 08:20 Height 5 ft 11 in Weight 130 lb BMI 18.1 Handedness Left Intake Visit Reasons: New Pt - B/L hand numbness Intake Note: Bart is a 68 year old right hand dominant male who presents today with his daughter as a new patient for a evaluation of his bilateral hand numbness. Patient reports off and numbness for about a year. Numbness is worse in the right hand than the left hand. Having numbness in both hands in the thumb, index finger and middle finger. His symptoms are worse at night and first thing in the morning. Allergies No Known Allergies Allergy (Verified 12/16/23 08:19) HPI HPI New Pt - B/L hand numbness: Details: Bart is a 68 year old right hand dominant Latvian speaking man, here with his daughter, with complaints of bilateral hand numbness. He complains of numbness in the thumb, index, and middle fingers bilaterally, R>L. 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 He says he has weakness in gripping and is unable to grasp & open things such as his pill bottle or a bottle of water. He denies any prior treatment or NCS. He has a Hx of cocaine & opioid use, CHF, cardiomyopathy, and smokes cigarettes. [facility] Medical History (Updated 12/16/23 @ 08:29 by Ronan Jarvis) Opioid use disorder Cocaine use disorder Heart failure with reduced ejection fraction Acute electrocardiogram changes Patient denies significant medical history Surgical History (System 11/16/23 @ 14:33 by Chloe Lyman) No pertinent past surgical history Family History Other No family history of coronary artery disease Social History Household Members: Family Housing: House Do you presently have visiting nurse or other home services: No Alcohol intake: current Alcohol intake frequency: other Alcohol type: beer and hard liquor Patient Tobacco Use Status: Current everyday Tobacco user Tobacco use type: Cigarette Cigarette Packs Per Day: 1 Cigarettes Per Day: 20 Years Smoked: 58 Substance Use Type: Crack/Cocaine and Heroin service: No Current occupational status: unemployed Review of Systems Const All systems reviewed & are unremarkable except as noted in HPI and below Physical Exam Vital Signs: BMI result Body Mass Index 18.1 Const General: cooperative, healthy appearing and no acute distress Orientation/consciousness: patient oriented x3 HEENT Head: Yes normocephalic and Yes atraumatic Eyes EOM: EOMs intact bilaterally Resp Effort & Inspection: normal respiratory effort and able to speak in complete sentences Cardio Jugular venous distension: no JVD Skin General skin exam: turgor normal Rashes: no rashes Neuro General: patient oriented x3 Extrem Other: Evaluation of Bilateral Upper Extremity: The patient is alert, oriented, and in no acute distress Neuro: He has numbness in the median nerve distribution bilaterally with more normal sensation in the small fingers bilaterally. Vascular: Cap refill brisk ROM: He can make a fist and extend all his digits No locking or catching Skin: No lacerations or abrasions. General: No Ecchymosis. No Erythema or evidence of infection. Bilateral shoulder signs Hyperextension of the right thumb MCP joint to ~90 degrees Radiographs: 3 views of the bilateral hands from 02/09/23 were reviewed by me today in clinic. Regarding the right hand, they show: No fractures or dislocations. There is end stage basal joint arthritis with severe adduction deformity and hyperextension of the MCP joint to 90 degrees Regarding the left hand, they show: No fractures or dislocations.. There is severe basal joint arthritis Psych Appearance: grossly normal Affect: normal affect Attitude: cooperative Assessment & Plan Assessment & Plan (1) Bilateral hand numbness: Code(s): R20.0 - Anesthesia of skin Category: Medical (2) Osteoarthritis of carpometacarpal (CMC) joint of both thumbs: Code(s): M18.0 - Bilateral primary osteoarthritis of first carpometacarpal joints Category: Medical (3) Cocaine use disorder, severe, in early remission: Code(s): F14.21 - Cocaine dependence, in remission Category: Medical (4) Opioid use disorder, moderate, in early remission, on maintenance therapy, dependence: Code(s): F11.21 - Opioid dependence, in remission Category: Medical Plan Assessment & Plan: 1. Bilateral hand numbness In the median nerve distribution, R>L Dense numbness in the median nerve distribution with worsening of painful symptoms at night I ordered a NCS to assess for peripheral nerve compression He will follow up when completed for review 2. Bilateral basal joint osteoarthritis 3. Right thumb MCP joint osteoarthritis Radiographs reviewed today No complaints about his thumbs today Scribed for [place] Rivas MD by Ronan Jarvis, medical management trainer, on 12/16/23 at 8:30 AM, EST. Orders: Orders NE nerve conduction velocity Today R20.0 - Anesthesia of skin, R20.2 - Paresthesia of skin Coding Level of Care Code New Pt Level 3 (68274) Diagnoses Bilateral hand numbness R20.0 Osteoarthritis of carpometacarpal (CMC) joint of both thumbs M18.0 Cocaine use disorder, severe, in early remission F14.21 Opioid use disorder, moderate, in early remission, on maintenance therapy, dependence F11.21
[2023-12-16 08:20] VITALS: BMI 18.1
== END 2023-12-16 08:40 | disposition home or self-care (01) ==
PROVIDERS: Visit Provider Orthopaedic Surgery
DX: M18.0 Bilateral primary osteoarthritis of first carpometacarpal joints (principal); R20.0 Anesthesia of skin
CPT/HCPCS: 99203

== ENCOUNTER → 2023-12-16 08:11 | Outpatient (BNVA) | payer OTHER, SELFPAY | PROVIDERS: Visit Provider Orthopaedic Surgery | DX: R20.0 Anesthesia of skin (principal); M18.0 Bilateral primary osteoarthritis of first carpometacarpal joints; F14.21 Cocaine dependence, in remission; F11.21 Opioid dependence, in remission | CPT/HCPCS: 99202 ==